=== PATIENT | female | born 1980 | race Caucasian/White ===

== ENCOUNTER 2022-10-05 00:02 | Emergency (ER) | payer BC, SELFPAY ==
[2022-10-05 00:07] VITALS: BP 134/97; PULSE 85; RESP 18; TEMP 36.7; O2SAT 97; BMI 42.3
--- NOTE | 2022-10-05 00:25 | ED_ITS ---
HPI - Allergic Reaction General Chief complaint: Allergic Reaction Stated complaint: HIVES Time Seen by Provider: 10/05/22 00:23 Source: patient Mode of arrival: walk-in Limitations: no limitations History of Present Illness HPI narrative: developed hives and swelling of her lips around 6pm. took baby benadryl. Not short of breath and no cough. Throat feels scratch. No associated nausea or vomiting. recent CVA that resolved. She is on Plavix and Lipitor Related Data Home Medications Medication Instructions Recorded Confirmed atorvastatin 40 mg tablet 40 mg PO DAILY 10/05/22 10/05/22 buspirone 10 mg tablet 10 mg PO TID 10/05/22 10/05/22 clopidogrel 75 mg tablet 75 mg PO DAILY 10/05/22 10/05/22 escitalopram oxalate 10 mg tablet 10 mg PO DAILY 10/05/22 10/05/22 Allergies Allergy/AdvReac Type Severity Reaction Status Date / Time Sulfa (Sulfonamide Allergy Unknown Verified 10/05/22 00:12 Antibiotics) topiramate [From Topamax] Allergy Unknown Verified 10/05/22 00:12 Review of Systems ROS Status of ROS 10 or more systems reviewed and unremarkable except as noted in history and below [facility] Medical History (Updated 10/05/22 @ 02:09 by Jareth Fu MD) Social History Smoking status: Former smoker Exam Constitutional Vital Signs - 24 hr 10/05/22 00:07 Temperature 98.1 F Pulse Rate [Monitor] 85 Respiratory Rate 18 Blood Pressure [Right Arm] 134/97 H Pulse Oximetry 97 Oxygen Delivery Method Room Air Common normals: no apparent distress and oriented x3 HENMT Common normals: normocephalic and head/scalp atraumatic Other: mild swelling right lip Eye Common normals: PERRL, EOMs intact bilaterally, conjunctivae normal and no scleral icterus Respiratory Common normals: normal respiratory effort, no retractions, no use of accessory muscles and clear to auscultation bilaterally Cardio Common normals: regular rate, regular rhythm, S1 normal heart sound and S2 normal heart sound GI Common normals: Normal to inspection, nondistended, normoactive bowel sounds present, soft to palpation and non-tender Extremity Common normals: normal to inspection, full ROM and normal capillary refill Neuro Common normals: oriented x3 and CN's II-XII intact bilaterally Psych Appearance: grossly normal Course Vital Signs Vital signs: Vital Signs Temperature 98.1 F 10/05/22 00:07 Pulse Rate 85 10/05/22 00:07 Respiratory Rate 18 10/05/22 00:07 Blood Pressure 134/97 H 10/05/22 00:07 Pulse Oximetry 97 10/05/22 00:07 Oxygen Delivery Method Room Air 10/05/22 00:07 Temperature 98.1 F 10/05/22 00:07 Pulse Rate 85 10/05/22 00:07 Respiratory Rate 18 10/05/22 00:07 Blood Pressure 134/97 H 10/05/22 00:07 Pulse Oximetry 97 10/05/22 00:07 Oxygen Delivery Method Room Air 10/05/22 00:07 MDM - Allergic Reaction MDM Narrative Medical decision making narrative: patient presents after allergic reaction with hives and swelling right side of her lip. scratchy throat but throat not swollen. Treated with benadryl, pepcid and solumedrol. By time of discharge lip swelling had significantly improved and nearly resolved and rash had cleared.Discharged home with a prescription for prednisone and is to follow up with her family doctor Discharge Plan Discharge Chief Complaint: Allergic Reaction Clinical Impression: Urticaria, Allergic reaction Condition: Good Prescriptions / Home Meds: No Action atorvastatin 40 mg tablet 40 mg PO DAILY clopidogrel 75 mg tablet 75 mg PO DAILY buspirone 10 mg tablet 10 mg PO TID escitalopram oxalate 10 mg tablet 10 mg PO DAILY Instructions: Urticaria (ED) Additional Instructions: follow up with the family doctor in 2-3 days for recheck. use benadryl 50mg 2-3 times a day for 3 days Stand Alone Forms: Portal Instructions Referrals: MIKIE CARBAJAL [Primary Care Provider] - 1 week
[2022-10-05 00:34] LABS: Basophils Percent Auto 0.2 % (0.2-2.0); Eosinophils Absolute Auto 0.1 10^3/uL (0.0-0.7); Eosinophils Percent Auto 1.3 % (0.9-7.0); Hematocrit 41.5 % (36.0-48.0); Immature Granulocytes Abs Auto 0.02 10^3/uL (0.00-0.03); Immature Granulocytes Pct Auto 0.2 % (0.0-0.5); Lymphocytes Absolute Auto 2.6 10^3/uL (1.2-3.8); Lymphocytes Percent Auto 26.5 % (20.5-60.0); Mean Corpuscular HGB Conc 33.7 g/dL (29.9-35.2); Mean Corpuscular Hemoglobin 31.3 pg (26.7-34.0); Mean Corpuscular Volume 92.6 fL (81.0-99.0); Mean Platelet Volume 9.9 fL (9.5-13.5); Monocytes Absolute Auto 0.5 10^3/uL (0.3-0.8); Neutrophils Absolute Auto 6.5 10^3/uL (1.4-6.5); Neutrophils Percent Auto 66.8 % (43.0-75.0); Platelet Count 233 10^3/uL (150-450); Red Blood Count 4.48 10^6/uL (4.20-5.40); Red Cell Distribution Width 12.9 % (11.0-15.0); White Blood Count 9.7 10^3/uL (4.0-11.0)
[2022-10-05] MEDS: METHYLPREDNISOLONE SOD SUCC PF 125 MG/2 ML VIAL IVP (00:35)
[2022-10-05] MEDS: DIPHENHYDRAMINE HCL 50 MG/ML (1ML) VIAL IV (00:35)
[2022-10-05] MEDS: FAMOTIDINE/PF 20 MG/2 ML VIAL IV (00:36)
[2022-10-05 00:41] VITALS: BP 119/73; O2SAT 97; O2SAT 99
[2022-10-05 00:49] LABS: Anion Gap 11.9; Calcium 8.8 mg/dL (8.5-10.1); Carbon Dioxide 26.9 mmol/L (21.0-32.0); Chloride 103 mmol/L (98-107); Estimated GFR (African America >60 (>=60); Estimated GFR (Non-African Ame >60 (>=60); Glucose 110 mg/dL (74-106); Potassium 3.8 mmol/L (3.5-5.1); Sodium 138 mmol/L (136-145)
[2022-10-05 01:00] VITALS: BP 112/67; O2SAT 96
[2022-10-05 01:30] VITALS: BP 120/74; O2SAT 97
== END 2022-10-05 02:19 | disposition home or self-care (01) ==
PROVIDERS: Emergency Provider Internal Medicine; PCP Family Medicine
DX: L50.0 Allergic urticaria (principal); Z86.73 Personal history of transient ischemic attack (TIA), and cerebral infarction without residual deficits; Z79.899 Other long term (current) drug therapy; Z87.891 Personal history of nicotine dependence
CPT/HCPCS: 36415; 80048; 85025; 96374; 96375; 99284; J2930

== ENCOUNTER 2022-10-06 19:08 | Emergency (ER) | payer BC, SELFPAY ==
[2022-10-06] VITALS (7 sets, daily range): BP systolic 114–135; BP diastolic 64–91; PULSE 73–95; RESP 15–25; TEMP 36.8; O2SAT 94–98; BMI 42.3
--- NOTE | 2022-10-06 19:48 | ED_ITS ---
HPI - General Adult General Chief complaint: Allergic Reaction Stated complaint: RASH, UPPER EXTREMITY EDEMA Time Seen by Provider: 10/06/22 19:37 Source: patient Mode of arrival: walk-in History of Present Illness HPI narrative: patient was evaluated in our ED 2 nights ago after she developed lip swelling and an itchy raised red rash. She got better in the ED after receiving IV Solumedrol, Benadryl and Pepcid. She was discharged home with prescription for prednisone and recommendation to continue benadryl as needed. She stopped her aspirin and also stopped her statin. She continued to take her Plavix. yesterday evening the rash worsened and despite taking the prednisone and benadryl at home the rash continued to worsen - involving her torso, extremities and neck. No wheezing or shortness of breath but she now has some itchiness to the throat. She last took benadryl around 2pm. 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 She was taking the plavix because of a CVA recently diagnosed. This is her last dose and then she is supposed to see the neurologist tomorrow to discuss whether or not she has to continue it. Related Data Home Medications Medication Instructions Recorded Confirmed atorvastatin 40 mg tablet 40 mg PO DAILY 10/05/22 10/05/22 buspirone 10 mg tablet 10 mg PO TID 10/05/22 10/05/22 clopidogrel 75 mg tablet 75 mg PO DAILY 10/05/22 10/05/22 escitalopram oxalate 10 mg tablet 10 mg PO DAILY 10/05/22 10/05/22 Allergies Allergy/AdvReac Type Severity Reaction Status Date / Time Sulfa (Sulfonamide Allergy Unknown Verified 10/06/22 19:21 Antibiotics) topiramate [From Topamax] Allergy Unknown Verified 10/06/22 19:21 [facility] Medical History (Updated 10/06/22 @ 21:45 by Trevor Birmingham) Surgical History (Updated 10/06/22 @ 19:24 by Monserrat Richards) Social History Smoking status: Former smoker Exam Narrative Exam Narrative: Nurses notes and vital signs reviewed and patient is not hypoxic. afebrile General: Well-appearing and in no apparent distress. Skin: Warm, dry, no pallor noted. urticarial rash in patches that involve the right torso, left upper extremity, left neck as well as patches elsewhere. Head: Normocephalic, atraumatic. Neck: Supple, non-tender. Eye: Pupils are equal, round and EOMI. No scleral icterus. Ears, Nose, Mouth, and Throat: Oral mucosa is moist, no posterior oropharynx erythema her swelling, uvula is mid-line Cardiovascular: Regular Rate and Rhythm without murmur, gallop or rub. Respiratory: No accessory muscle use or respiratory distress. Lungs are clear to auscultation, no wheezing, rales or rhonchi Musculoskeletal: normal ROM Neurological: A&O x4. No cranial nerve dysfunction observed. No truncal ataxia. Moves all extremities. Sensation intact. Psychiatric: Cooperative and interactive. Normal mood and affect. Constitutional Vital Signs - 24 hr 10/06/22 19:15 10/06/22 19:53 10/06/22 20:00 Temperature 98.2 F Pulse Rate 73 89 Pulse Rate [Monitor] 77 Respiratory Rate 16 15 25 H Blood Pressure Blood Pressure [Right Arm] 114/76 Pulse Oximetry 96 97 96 Oxygen Delivery Method Room Air 10/06/22 20:08 10/06/22 20:09 10/06/22 20:09 Temperature Pulse Rate 81 95 H 83 Pulse Rate [Monitor] Respiratory Rate 20 15 23 Blood Pressure 135/91 H 135/91 H Blood Pressure [Right Arm] Pulse Oximetry 97 98 95 Oxygen Delivery Method 10/06/22 20:09 10/06/22 21:00 Temperature Pulse Rate 79 80 Pulse Rate [Monitor] Respiratory Rate 23 23 Blood Pressure 135/91 H 122/64 H Blood Pressure [Right Arm] Pulse Oximetry 94 L 95 Oxygen Delivery Method Course Vital Signs Vital signs: Vital Signs Temperature 98.2 F 10/06/22 19:15 Pulse Rate 77 10/06/22 19:15 Respiratory Rate 16 10/06/22 19:15 Blood Pressure 114/76 10/06/22 19:15 Pulse Oximetry 96 10/06/22 19:15 Oxygen Delivery Method Room Air 10/06/22 19:15 Temperature 98.2 F 10/06/22 19:15 Pulse Rate 80 10/06/22 21:00 Respiratory Rate 23 10/06/22 21:00 Blood Pressure 122/64 H 10/06/22 21:00 Pulse Oximetry 95 10/06/22 21:00 Oxygen Delivery Method Room Air 10/06/22 19:15 Medical Decision Making MDM Narrative Medical decision making narrative: patient presented with allergic type reactions of scratchy throat and skin rash. She was placed on air sampling and monitoring and given sq epinephrine plus IV solumedrol, benadryl and pepcid. She was monitored more than 2 horus in the ED and had almost complete resolution of her symptoms. She was discharged home with recommendation to continue tot enedina the prednisone and benadryl as prescribed. She has an apointment with her neurologist in the morning and can discuss discontinuation of plavix and other meds to see if they might be the offending agents. Critical Care Time Critical Care Time Critical Care Time: Yes Total Critical Care Time: 35 Attestation: critical care time for evaluation, cardiac monitoring, administration of epinephrine and other meds and re-assessment. Discharge Plan Discharge Chief Complaint: Allergic Reaction Clinical Impression: Urticaria, Allergic reaction Time of Disposition Decision: 21:44 Prescriptions / Home Meds: No Action atorvastatin 40 mg tablet 40 mg PO DAILY clopidogrel 75 mg tablet 75 mg PO DAILY buspirone 10 mg tablet 10 mg PO TID escitalopram oxalate 10 mg tablet 10 mg PO DAILY Instructions: Urticaria (ED), General Allergic Reaction (ED) Stand Alone Forms: Portal Instructions Referrals: MIKIE CARBAJAL [Primary Care Provider] - 1 week
[2022-10-06] MEDS: DIPHENHYDRAMINE HCL 50 MG/ML (1ML) VIAL 25 MG IV (20:03)
[2022-10-06] MEDS: METHYLPREDNISOLONE SOD SUCC PF 125 MG/2 ML VIAL IVP (20:04)
[2022-10-06] MEDS: FAMOTIDINE/PF 20 MG/2 ML VIAL IV (20:04)
[2022-10-06] MEDS: EPINEPHrine 1 MG/10 ML SYRINGE 0.3 MG IM (20:06)
== END 2022-10-06 22:05 | disposition home or self-care (01) ==
PROVIDERS: Emergency Provider Emergency Medicine; PCP Family Medicine
DX: L50.0 Allergic urticaria (principal); Z79.899 Other long term (current) drug therapy; Z87.891 Personal history of nicotine dependence
CPT/HCPCS: 96372; 96374; 96375; 99285; J2930

== ENCOUNTER 2022-10-13 10:56 | Outpatient (OUT) | payer BC, SELFPAY ==
[2022-10-13 11:32] LABS: Basophils Percent Auto 0.4 % (0.2-2.0); Eosinophils Absolute Auto 0.1 10^3/uL (0.0-0.7); Eosinophils Percent Auto 1.2 % (0.9-7.0); Hematocrit 39.8 % (36.0-48.0); Hemoglobin 13.5 g/dL (12.0-16.0); Immature Granulocytes Abs Auto 0.08 10^3/uL (0.00-0.03); Immature Granulocytes Pct Auto 0.7 % (0.0-0.5); Lymphocytes Absolute Auto 2.7 10^3/uL (1.2-3.8); Lymphocytes Percent Auto 24.1 % (20.5-60.0); Mean Corpuscular HGB Conc 33.9 g/dL (29.9-35.2); Mean Corpuscular Hemoglobin 31.2 pg (26.7-34.0); Mean Corpuscular Volume 91.9 fL (81.0-99.0); Mean Platelet Volume 9.7 fL (9.5-13.5); Monocytes Absolute Auto 0.5 10^3/uL (0.3-0.8); Monocytes Percent Auto 4.9 % (1.7-12.0); Neutrophils Absolute Auto 7.6 10^3/uL (1.4-6.5); Neutrophils Percent Auto 68.7 % (43.0-75.0); Platelet Count 220 10^3/uL (150-450); Red Blood Count 4.33 10^6/uL (4.20-5.40); Red Cell Distribution Width 13.2 % (11.0-15.0); White Blood Count 11.1 10^3/uL (4.0-11.0)
[2022-10-13 12:20] LABS: Alanine Aminotransferase 41 U/L (14-59); Albumin Level 3.3 g/dL (3.4-5.0); Alkaline Phosphatase 102 U/L (46-116); Anion Gap 12.3; Aspartate Amino Transferase 13 U/L (15-37); BUN Creatinine Ratio 13.6; Bilirubin Total 0.3 mg/dL (0.2-1.0); Calcium 8.4 mg/dL (8.5-10.1); Carbon Dioxide 25.5 mmol/L (21.0-32.0); Chloride 103 mmol/L (98-107); Estimated GFR (African America >60 (>=60); Estimated GFR (Non-African Ame >60 (>=60); Globulin 3.2 g/dL; Glucose 168 mg/dL (74-106); Potassium 3.8 mmol/L (3.5-5.1); Sodium 137 mmol/L (136-145); Thyroid Stimulating Hormone 1.363 uIU/mL (0.358-3.740); Total Protein 6.5 g/dL (6.4-8.2)
[2022-10-14 10:19] LABS: Bilirubin Urine NEGATIVE (NEGATIVE); Blood Urine NEGATIVE (NEGATIVE); Clarity Urine CLEAR (CLEAR); Color Urine LT. YELLOW (YELLOW); Glucose Urine UA NEGATIVE (NEGATIVE); Ketones Urine NEGATIVE (NEGATIVE); Leukocyte Esterase Urine NEGATIVE (NEGATIVE); Nitrite Urine NEGATIVE (NEGATIVE); Protein Urine NEGATIVE (NEG/TRACE); Specific Gravity Urine 1.025 (1.005-1.025); Urobilinogen Urine 0.2 EU/dL (0.2-1.0); pH Urine 5.5 (5.0-9.0)
== END 2022-10-13 10:57 ==
LOC: LAB 10:58
PROVIDERS: PCP Family Medicine; Visit Provider Psychiatry & Neurology Neurology
DX: R60.0 Localized edema (principal)
CPT/HCPCS: 36415; 80053; 81003; 83880; 84443; 85025

== ENCOUNTER 2022-11-17 20:52 | Outpatient (OUT) | payer BC, SELFPAY | END 2022-11-17 20:53 | disposition home or self-care (01) | LOC: SLEEP 20:53 | PROVIDERS: PCP Nurse Practitioner Adult Health; Visit Provider Nurse Practitioner Adult Health | DX: G47.33 Obstructive sleep apnea (adult) (pediatric) (principal); G47.11 Idiopathic hypersomnia with long sleep time | CPT/HCPCS: 95810 ==

== ENCOUNTER 2023-01-12 07:56 | Emergency (ER) | payer BC, SELFPAY ==
[2023-01-12] VITALS (17 sets, daily range): BP systolic 105–125; BP diastolic 60–73; PULSE 79–107; RESP 6–28; TEMP 36.7; O2SAT 95–99; BMI 40.4
--- NOTE | 2023-01-12 08:11 | ECG_ITS ---
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
--- NOTE | 2023-01-12 08:11 | XR_ITS ---
[address] [address] Patient Name: JOHNIE KAMARA MRN: [id number] date: 1980 Sex: F Assigned Patient Location: ER Current Patient Location: ED.MAIN Accession/Order Number: [id number] Exam Date: 01/12/2023 08:30 Report Date: 01/12/2023 08:40 At the request of: ARISTIDES GILBERT Procedure: XR chest 1V Exam: Radiographs: XR chest 1V Reason for exam: Chest pain Comparison: Chest x-ray dated 09/16/2022 XR/XR chest 1V IMPRESSION: Small amount of bibasilar atelectasis. No pneumothorax. Atrial septal occlusion device. Remainder of the chest is unremarkable. Electronically authenticated by: SUMMER LANTIGUA Date: 01/12/2023 08:40
--- NOTE | 2023-01-12 08:12 | ED_ITS ---
HPI - Chest Pain General Chief Complaint: Chest Pain Stated Complaint: SOB CHEST PAIN Time Seen by Provider: 01/12/23 07:58 Source: patient Mode of arrival: Wheelchair History of Present Illness HPI narrative: 42-year-old female presents to the emergency department for chest pain. It began about three or 4:00 this morning and feels like a pressure and it woke her up. It's in the middle part of her chest and doesn't seem to radiate. Two days ago she had PFO closure procedure performed at [facility] and she went home the same day. She had no symptoms yesterday. Her symptom is continuous. No back pain. Related Data Home Medications Medication Instructions Recorded Confirmed atorvastatin 40 mg tablet 40 mg PO DAILY 10/05/22 01/12/23 buspirone 10 mg tablet 10 mg PO TID 10/05/22 01/12/23 clopidogrel 75 mg tablet 75 mg PO DAILY 10/05/22 01/12/23 escitalopram oxalate 10 mg tablet 10 mg PO DAILY 10/05/22 01/12/23 aspirin 81 mg tablet,delayed 81 mg PO DAILY 01/12/23 01/12/23 release Allergies Allergy/AdvReac Type Severity Reaction Status Date / Time protamine Allergy Intermediate Hives Verified 01/12/23 08:05 Sulfa (Sulfonamide Allergy Unknown Verified 10/06/22 19:21 Antibiotics) topiramate [From Topamax] Allergy Unknown Verified 10/06/22 19:21 Review of Systems ROS Narrative A ten point review of systems is negative except as noted above. [facility] Medical History (Updated 01/12/23 @ 11:42 by Phani Parks MD) Surgical History (Updated 10/06/22 @ 19:24 by Monserrat Richards) Social History Smoking status: Former smoker Exam Narrative Exam Narrative: Nurses note and vital signs reviewed and patient is not hypoxic. General: The patient appears well and in no apparent distress. Patient is resting comfortably on cart. Skin: Warm, dry, no pallor noted. There is no rash noted. Head: Normocephalic, atraumatic Eye: Normal conjunctiva, no drainage Ears, Nose, Mouth, and Throat: oral mucosa is moist. Nares patent. Cardiovascular: Regular Rate and Rhythm Respiratory: Patient is in no distress, no accessory muscle use, lungs are clear to auscultation, no wheezing, rales or rhonchi Back: non-tender GI: soft and nontender Musculoskeletal: The patient has no evidence of calf tenderness, no pitting edema, symmetrical pulses noted bilaterally Neurological: A&O, normal speech Psychiatric: Cooperative Constitutional Vital Signs, click to edit/add: Last Vital Signs Temp 98.1 F 01/12/23 07:58 Pulse 88 01/12/23 10:10 Resp 7 L 01/12/23 10:10 BP 105/60 01/12/23 09:31 Pulse Ox 96 01/12/23 10:10 O2 Del Method Room Air 01/12/23 07:58 Course Vital Signs Vital signs: Vital Signs Temperature 98.1 F 01/12/23 07:58 Pulse Rate 107 H 01/12/23 07:58 Respiratory Rate 20 01/12/23 07:58 Blood Pressure 125/71 01/12/23 07:58 Pulse Oximetry 98 01/12/23 07:58 Oxygen Delivery Method Room Air 01/12/23 07:58 Temperature 98.1 F 01/12/23 07:58 Pulse Rate 88 01/12/23 10:10 Respiratory Rate 7 L 01/12/23 10:10 Blood Pressure 105/60 01/12/23 09:31 Pulse Oximetry 96 01/12/23 10:10 Oxygen Delivery Method Room Air 01/12/23 07:58 MDM - Chest Pain MDM Narrative Medical decision making narrative: two sets of troponin are negative. CTA is negative as well, no evidence of pneumothorax or pulmonary embolism or pericardial effusion. 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 I do not suspect pericarditis and there is no evidence of myocardial infarction. Findings are discussed thoroughly with the patient and her . She was given a gastrointestinal cocktail and feels improved. Treatment diagnosis and follow-up were discussed with the patient Differential Diagnosis Differential diagnosis: Likely pneumothorax, unstable angina pectoris, atypical chest pain, st elevation myocardial infarction, costochondritis, chest pain and other (pericarditis, pericardial effusion) Lab Data Attestation: I reviewed the patient's lab results. Labs: Lab Results 01/12/23 01/12/23 Range/Units 08:15 10:52 WBC 10.1 (4.0-11.0) 10^3/uL RBC 4.38 (4.20-5.40) 10^6/uL Hgb 13.9 (12.0-16.0) g/dL Hct 40.5 (36.0-48.0) % MCV 92.5 (81.0-99.0) fL MCH 31.7 (26.7-34.0) pg MCHC 34.3 (29.9-35.2) g/dL RDW 12.7 (11.0-15.0) % Plt Count 176 (150-450) 10^3/uL MPV 10.3 (9.5-13.5) fL Neut % (Auto) 70.5 (43.0-75.0) % Lymph % (Auto) 20.8 (20.5-60.0) % [place] % (Auto) 6.9 (1.7-12.0) % Eos % (Auto) 1.2 (0.9-7.0) % Baso % (Auto) 0.3 (0.2-2.0) % Neut # (Auto) 7.1 H (1.4-6.5) 10^3/uL Lymph # (Auto) 2.1 (1.2-3.8) 10^3/uL Marion # (Auto) 0.7 (0.3-0.8) 10^3/uL Eos # (Auto) 0.1 (0.0-0.7) 10^3/uL Baso # (Auto) 0.0 (0.0-0.1) 10^3/uL Abs Immat Gran (auto) 0.03 (0.00-0.03) 10^3/uL Imm/Tot Granulo (auto) 0.3 (0.0-0.5) % Sodium 134 L (136-145) mmol/L Potassium 3.7 (3.5-5.1) mmol/L Chloride 103 (98-107) mmol/L Carbon Dioxide 21.4 (21.0-32.0) mmol/L Anion Gap 13.3 BUN 7.0 (7.0-18.0) mg/dL Creatinine 0.79 (0.55-1.02) mg/dL Est GFR ( Amer) >60 (>=60) Est GFR (Non-Af Amer) >60 (>=60) BUN/Creatinine Ratio 8.9 Glucose 117 H (74-106) mg/dL Calcium 9.0 (8.5-10.1) mg/dL Troponin I High Sens 13.8 11.4 (4.0-51.3) pg/mL Imaging Data x-ray, CTA chest: Radiologist's impression: Procedure: CT angio chest EXAM: CT angio chest HISTORY: chest pain, recent PFO closure procedure COMPARISON: Chest CT from 06/29/2022. TECHNIQUE: CT angio chest FINDINGS: VASCULATURE: CORONARY ARTERIES: There are no atherosclerotic calcifications of the [place] coronary arteries. PULMONARY ARTERIES: No central pulmonary embolus. Normal size. ASCENDING THORACIC AORTA: No significant abnormality. AORTIC ARCH: No significant abnormality. ARCH VESSELS: No significant abnormality. DESCENDING THORACIC AORTA: No significant abnormality. UPPER ABDOMINAL AORTA: No significant abnormality. LOWER NECK: Normal. CHEST: LUNGS / AIRWAYS / PLEURA: Streaky bibasilar atelectasis. HEART / OTHER VESSELS: Changes from prior PFO closure. MEDIASTINUM / ESOPHAGUS: Normal. LYMPH NODES: None pathologically enlarged. Solitary partially calcified right hilar lymph node. CHEST WALL: No significant abnormality. UPPER ABDOMEN: Normal. MUSCULOSKELETAL: No significant abnormality. IMPRESSION: Changes from prior PFO closure without an acute abnormality of the chest. Electronically authenticated by: JEREMIAH TURCIOS Date: 01/12/2023 09:43 Procedure: XR chest 1V Exam: Radiographs: XR chest 1V Reason for exam: Chest pain Comparison: Chest x-ray dated 09/16/2022 IMPRESSION: Small amount of bibasilar atelectasis. No pneumothorax. Atrial septal occlusion device. Remainder of the chest is unremarkable. Electronically authenticated by: SUMMER LANTIGUA Date: 01/12/2023 08:40 ECG Data Attestation: I personally reviewed and interpreted this ECG as follows: (EKG on my interpretation shows normal sinus rhythm without acute change and a rate of 92.) Heart Score History: Slightly/Non-Suspicious ECG: Normal Age: <45 years Risk Factors: No Risk Factors Troponin: <Normal Limit Total Heart Score Recommendations & Risks:: 0 Discharge Plan Discharge Chief Complaint: Chest Pain Clinical Impression: Chest pain Patient Disposition: Home, Self-Care Time of Disposition Decision: 11:42 Condition: Good Mode of Transportation: Private Vehicle Prescriptions / Home Meds: No Action atorvastatin 40 mg tablet 40 mg PO DAILY clopidogrel 75 mg tablet 75 mg PO DAILY buspirone 10 mg tablet 10 mg PO TID escitalopram oxalate 10 mg tablet 10 mg PO DAILY aspirin 81 mg tablet,delayed release (DR/EC) 81 mg PO DAILY Instructions: Chest Pain (ED) Stand Alone Forms: Portal Instructions Referrals: JESÚS VEGA [Primary Care Provider] - 1 week
[2023-01-12 08:27] LABS: Basophils Percent Auto 0.3 % (0.2-2.0); Eosinophils Absolute Auto 0.1 10^3/uL (0.0-0.7); Eosinophils Percent Auto 1.2 % (0.9-7.0); Hematocrit 40.5 % (36.0-48.0); Hemoglobin 13.9 g/dL (12.0-16.0); Immature Granulocytes Abs Auto 0.03 10^3/uL (0.00-0.03); Immature Granulocytes Pct Auto 0.3 % (0.0-0.5); Lymphocytes Absolute Auto 2.1 10^3/uL (1.2-3.8); Lymphocytes Percent Auto 20.8 % (20.5-60.0); Mean Corpuscular HGB Conc 34.3 g/dL (29.9-35.2); Mean Corpuscular Hemoglobin 31.7 pg (26.7-34.0); Mean Corpuscular Volume 92.5 fL (81.0-99.0); Mean Platelet Volume 10.3 fL (9.5-13.5); Monocytes Absolute Auto 0.7 10^3/uL (0.3-0.8); Monocytes Percent Auto 6.9 % (1.7-12.0); Neutrophils Absolute Auto 7.1 10^3/uL (1.4-6.5); Neutrophils Percent Auto 70.5 % (43.0-75.0); Platelet Count 176 10^3/uL (150-450); Red Blood Count 4.38 10^6/uL (4.20-5.40); Red Cell Distribution Width 12.7 % (11.0-15.0); White Blood Count 10.1 10^3/uL (4.0-11.0)
[2023-01-12 08:42] LABS: Anion Gap 13.3; BUN Creatinine Ratio 8.9; Carbon Dioxide 21.4 mmol/L (21.0-32.0); Chloride 103 mmol/L (98-107); Estimated GFR (African America >60 (>=60); Estimated GFR (Non-African Ame >60 (>=60); Glucose 117 mg/dL (74-106); Potassium 3.7 mmol/L (3.5-5.1); Sodium 134 mmol/L (136-145); Troponin I High Sensitivity 13.8 pg/mL (4.0-51.3)
--- NOTE | 2023-01-12 08:45 | CT_ITS ---
The [address] [address] Patient Name: JOHNIE KAMARA MRN: [id number] date: 1980 Sex: F Assigned Patient Location: ER Current Patient Location: ER Accession/Order Number: [id number] Exam Date: 01/12/2023 09:05 Report Date: 01/12/2023 09:43 At the request of: ARISTIDES GILBERT Procedure: CT angio chest EXAM: CT angio chest HISTORY: chest pain, recent PFO closure procedure COMPARISON: Chest CT from 06/29/2022. TECHNIQUE: CT angio chest FINDINGS: VASCULATURE: CORONARY ARTERIES: There are no atherosclerotic calcifications of the [place] coronary arteries. PULMONARY ARTERIES: No central pulmonary embolus. Normal size. ASCENDING THORACIC AORTA: No significant abnormality. AORTIC ARCH: No significant abnormality. ARCH VESSELS: No significant abnormality. DESCENDING THORACIC AORTA: No significant abnormality. UPPER ABDOMINAL AORTA: No significant abnormality. LOWER NECK: Normal. CHEST: LUNGS / AIRWAYS / PLEURA: Streaky bibasilar atelectasis. HEART / OTHER VESSELS: Changes from prior PFO closure. MEDIASTINUM / ESOPHAGUS: Normal. LYMPH NODES: None pathologically enlarged. Solitary partially calcified right hilar lymph node. CHEST WALL: No significant abnormality. UPPER ABDOMEN: Normal. MUSCULOSKELETAL: No significant abnormality. CT/CT angio chest IMPRESSION: Changes from prior PFO closure without an acute abnormality of the chest. Electronically authenticated by: JEREMIAH TURCIOS Date: 01/12/2023 09:43
[2023-01-12] MEDS: lidocaine HCL 15 ML, MAG HYDROX/ALUMINUM HYD/SIMETH 30 ML, HYOSCYAMINE SULFATE 0.25 MG PO (10:58)
[2023-01-12 11:32] LABS: Troponin I High Sensitivity 11.4 pg/mL (4.0-51.3)
== END 2023-01-12 11:53 | disposition home or self-care (01) ==
PROVIDERS: Emergency Provider Emergency Medicine; PCP Nurse Practitioner Adult Health
DX: R07.9 Chest pain, unspecified (principal); Z79.82 Long term (current) use of aspirin; Z79.899 Other long term (current) drug therapy; Z87.891 Personal history of nicotine dependence
CPT/HCPCS: 36415; 71045; 71275; 80048; 84484; 85025; 93005; 99285; Q9967

== ENCOUNTER 2023-06-12 21:47 | Emergency (ER) | payer BC, SELFPAY ==
[2023-06-12] VITALS (16 sets, daily range): BP systolic 122–153; BP diastolic 79–94; PULSE 75–88; RESP 4–24; TEMP 36.9; O2SAT 92–98; BMI 43.6
--- NOTE | 2023-06-12 22:09 | ED_ITS ---
HPI - Weakness General Chief complaint: Weakness Stated complaint: cva Time Seen by Provider: 06/12/23 22:05 Source: patient Mode of arrival: Wheelchair History of Present Illness HPI Narrative: patient s/p CVA August 2022. Was found to have PFO that was repaired at [facility] 12/2022. History of migraine headache. States around 9:30pm tonight her right arm felt heavy. Just before coming in she developed a headache and right arm and leg feel heavy but she still has full use of them. States with her headaches she usually has blurred vision. Her vision is normal. She is nauseated. No chest pain or palpitations Related Data Home Medications Medication Instructions Recorded Confirmed atorvastatin 40 mg tablet 40 mg PO DAILY 10/05/22 01/12/23 buspirone 10 mg tablet 10 mg PO TID 10/05/22 01/12/23 clopidogrel 75 mg tablet 75 mg PO DAILY 10/05/22 01/12/23 escitalopram oxalate 10 mg tablet 10 mg PO DAILY 10/05/22 01/12/23 aspirin 81 mg tablet,delayed 81 mg PO DAILY 01/12/23 01/12/23 release Allergies Allergy/AdvReac Type Severity Reaction Status Date / Time protamine Allergy Intermediate Hives Verified 01/12/23 08:05 aspirin Allergy Mild Hives Verified 06/12/23 22:53 Sulfa (Sulfonamide Allergy Unknown Verified 10/06/22 19:21 Antibiotics) topiramate [From Topamax] Allergy Unknown Verified 10/06/22 19:21 Review of Systems ROS Status of ROS 10 or more systems reviewed and unremark able except as noted in history and below [facility] Medical History (Updated 06/13/23 @ 00:14 by Jareth uF MD) Stroke ?I63.9 - Cerebral infarction, unspecified (ICD-10) Surgical History (Updated 10/06/22 @ 19:24 by Monserrat Richards) History of cholecystectomy ?Z90.49 - Acquired absence of other specified parts of digestive tract (ICD- 10) History of hysterectomy ?Z90.710 - Acquired absence of both cervix and uterus (ICD-10) Social History Smoking status: Former smoker Exam Constitutional Vital Signs, click to edit/add: Last Vital Signs Temp 98.4 F 06/12/23 21:52 Pulse 80 06/13/23 00:10 Resp 24 06/13/23 00:10 BP 102/70 06/13/23 00:00 Pulse Ox 93 L 06/13/23 00:10 O2 Del Method Room Air 06/12/23 21:52 Common normals: no apparent distress, average body habitus, oriented x3, no limitations, healthy appearing, alert and well nourished [facility] Common normals: normocephalic and head/scalp atraumatic Eye Common normals: EOMs intact bilaterally and conjunctivae normal Chest Common normals: inspection of chest normal and palpation of chest normal Respiratory Common normals: normal respiratory effort, no retractions, no use of accessory muscles and clear to auscultation bilaterally Cardio Common normals: regular rate, regular rhythm, S1 normal heart sound and S2 normal heart sound GI Common normals: Normal to inspection, nondistended, normoactive bowel sounds present, soft to palpation and non-tender Extremity Common normals: normal to inspection and full ROM Neuro Common normals: oriented x3, CN's II-XII intact bilaterally, moves all extremities and no focal motor deficits Psych Appearance: grossly normal Course Vital Signs Vital signs: Vital Signs Temperature 98.4 F 06/12/23 21:52 Pulse Rate 86 06/12/23 21:52 Respiratory Rate 16 06/12/23 21:52 Blood Pressure 153/94 H 06/12/23 21:52 Pulse Oximetry 96 06/12/23 21:52 Oxygen Delivery Method Room Air 06/12/23 21:52 Temperature 98.4 F 06/12/23 21:52 Pulse Rate 80 06/13/23 00:10 Respiratory Rate 06/13/23 00:10 Blood Pressure 102/70 06/13/23 00:00 Pulse Oximetry 93 L 06/13/23 00:10 Oxygen Delivery Method Room Air 06/12/23 21:52 MDM - Weakness MDM Narrative Medical decision making narrative: patient S/P CVA one year ago and found to have PFO that was repaired in 12/2022. Patient is on plavix. Has past history of migraines associated with blurred vision. Tonight developed numbness and heaviness of the right arm and numbness of the right leg. right arm felt heavy but was not weak. She then developed a headache and this combination frighten her and she came in. No palpitations or chest pain. CT brain neg. migraine treated successfully with reglan, benadryl and solumedrol and her paresthesia of her arm and leg also resolved. Discussed with stroke neurologist Dr Almeida and he felt her neuro symptoms were related to her migraine. Patient is asymptomatic and discharged home. Lab Data Labs: Lab Results 06/12/23 Range/Units 21:55 WBC 16.3 H (4.0-11.0) 10^3/uL RBC 4.70 (4.20-5.40) 10^6/uL Hgb 14.6 (12.0-16.0) g/dL Hct 43.9 (36.0-48.0) % MCV 93.4 (81.0-99.0) fL MCH 31.1 (26.7-34.0) pg MCHC 33.3 (29.9-35.2) g/dL RDW 13.2 (11.0-15.0) % Plt Count 254 (150-450) 10^3/uL MPV 10.2 (9.5-13.5) fL Neut % (Auto) 51.8 (43.0-75.0) % Lymph % (Auto) 41.3 (20.5-60.0) % [place] % (Auto) 5.3 (1.7-12.0) % Eos % (Auto) 0.8 L (0.9-7.0) % Baso % (Auto) 0.2 (0.2-2.0) % Neut # (Auto) 8.4 H (1.4-6.5) 10^3/uL Lymph # (Auto) 6.7 H (1.2-3.8) 10^3/uL [place] # (Auto) 0.9 H (0.3-0.8) 10^3/uL Eos # (Auto) 0.1 (0.0-0.7) 10^3/uL Baso # (Auto) 0.0 (0.0-0.1) 10^3/uL Abs Immat Gran (auto) 0.10 H (0.00-0.03) 10^3/uL Imm/Tot Granulo (auto) 0.6 H (0.0-0.5) % Sodium 140 (136-145) mmol/L Potassium 3.6 (3.5-5.1) mmol/L Chloride 103 (98-107) mmol/L Carbon Dioxide 27.5 (21.0-32.0) mmol/L Anion Gap 13.1 BUN 13.0 (7.0-18.0) mg/dL Creatinine 0.83 (0.55-1.02) mg/dL Est GFR ( Amer) >60 (>=60) Est GFR (Non-Af Amer) >60 (>=60) BUN/Creatinine Ratio 15.7 Glucose 115 H (74-106) mg/dL Calcium 8.8 (8.5-10.1) mg/dL Troponin I High Sens <4.0 L (4.0-51.3) pg/mL Discharge Plan Discharge Chief Complaint: Weakness Clinical Impression: Migraine Patient Disposition: Home, Self-Care Prescriptions / Home Meds: No Action atorvastatin 40 mg tablet 40 mg PO DAILY clopidogrel 75 mg tablet 75 mg PO DAILY buspirone 10 mg tablet 10 mg PO TID escitalopram oxalate 10 mg tablet 10 mg PO DAILY aspirin 81 mg tablet,delayed release (DR/EC) 81 mg PO DAILY Instructions: Migraine Headache (ED) Stand Alone Forms: Portal Instructions Referrals: JESÚS VEGA [Primary Care Provider] - 1 week Discharge Date/Time: 06/13/23 00:21
--- NOTE | 2023-06-12 22:13 | ECG_ITS ---
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
--- NOTE | 2023-06-12 22:13 | CT_ITS ---
The [address] [address] Patient Name: JOHNIE KAMARA MRN: [id number] date: 1980 Sex: F Assigned Patient Location: ER Current Patient Location: ER Accession/Order Number: [id number] Exam Date: 06/12/2023 22:20 Report Date: 06/12/2023 22:45 At the request of: VARUN GONCALVES Procedure: CT stroke head/brain wo con EXAMINATION: CT stroke head/brain wo con, 06/12/2023 10:20 PM EST HISTORY: right sided weakness COMPARISON: CT head 09/16/2022. TECHNIQUE: CT scan of the head was performed without IV contrast. CT dose reduction technique was used, including Automated Exposure Control. FINDINGS: BRAIN PARENCHYMA/CSF SPACES: Ventricles are normal in size for age. There is no hemorrhage, mass effect or midline shift. There are no other significant findings. PARANASAL SINUSES: Clear. SKULL BASE AND CALVARIUM: Normal. EXTRACRANIAL SOFT TISSUES: Normal. CT/CT stroke head/brain wo con IMPRESSION: Normal noncontrast head CT. Electronically authenticated by: OH GOTTLIEB Date: 06/12/2023 22:45
--- NOTE | 2023-06-12 22:13 | XR_ITS ---
The [place] [id number] Patient Name: JOHNIE KAMARA MRN: [id number] date: 1980 Sex: F Assigned Patient Location: ER Current Patient Location: ED.MAIN Accession/Order Number: [id number] Exam Date: 06/12/2023 22:35 Report Date: 06/12/2023 23:18 At the request of: VARUN GONCALVES Procedure: XR chest 1V EXAM: XR chest 1V HISTORY: right sided weakness COMPARISON: Chest x-ray 01/12/2023 TECHNIQUE: Single frontal view chest x-ray FINDINGS: No lung consolidation, large pleural effusion, pneumothorax, or acute bony abnormality. Cardiac size is unremarkable. Atrial septal occlusion device is seen. XR/XR chest 1V IMPRESSION: No radiographic evidence for acute chest abnormality. Electronically authenticated by: DAO SOOT Date: 06/12/2023 23:18
[2023-06-12 22:23] LABS: Basophils Percent Auto 0.2 % (0.2-2.0); Eosinophils Absolute Auto 0.1 10^3/uL (0.0-0.7); Eosinophils Percent Auto 0.8 % (0.9-7.0); Hematocrit 43.9 % (36.0-48.0); Hemoglobin 14.6 g/dL (12.0-16.0); Immature Granulocytes Pct Auto 0.6 % (0.0-0.5); Lymphocytes Absolute Auto 6.7 10^3/uL (1.2-3.8); Lymphocytes Percent Auto 41.3 % (20.5-60.0); Mean Corpuscular HGB Conc 33.3 g/dL (29.9-35.2); Mean Corpuscular Hemoglobin 31.1 pg (26.7-34.0); Mean Corpuscular Volume 93.4 fL (81.0-99.0); Mean Platelet Volume 10.2 fL (9.5-13.5); Monocytes Absolute Auto 0.9 10^3/uL (0.3-0.8); Monocytes Percent Auto 5.3 % (1.7-12.0); Neutrophils Absolute Auto 8.4 10^3/uL (1.4-6.5); Neutrophils Percent Auto 51.8 % (43.0-75.0); Platelet Count 254 10^3/uL (150-450); Red Cell Distribution Width 13.2 % (11.0-15.0); White Blood Count 16.3 10^3/uL (4.0-11.0)
[2023-06-12 22:41] LABS: Anion Gap 13.1; BUN Creatinine Ratio 15.7; Calcium 8.8 mg/dL (8.5-10.1); Carbon Dioxide 27.5 mmol/L (21.0-32.0); Chloride 103 mmol/L (98-107); Estimated GFR (African America >60 (>=60); Estimated GFR (Non-African Ame >60 (>=60); Glucose 115 mg/dL (74-106); Potassium 3.6 mmol/L (3.5-5.1); Sodium 140 mmol/L (136-145); Troponin I High Sensitivity <4.0 pg/mL (4.0-51.3)
[2023-06-12] MEDS: METHYLPREDNISOLONE SOD SUCC PF 125 MG/2 ML VIAL IVP (22:53)
[2023-06-12] MEDS: METOCLOPRAMIDE HCL 10 MG/2 ML VIAL IVP (22:53)
[2023-06-12] MEDS: DIPHENHYDRAMINE HCL 50 MG/ML (1ML) VIAL 25 MG IV (22:53)
[2023-06-13] VITALS: BP 102/70; PULSE 69; RESP 20; O2SAT 92
[2023-06-13 00:10] VITALS: PULSE 80; RESP 24; O2SAT 93
== END 2023-06-13 00:21 | disposition home or self-care (01) ==
PROVIDERS: Emergency Provider Internal Medicine; PCP Nurse Practitioner Adult Health
DX: G43.909 Migraine, unspecified, not intractable, without status migrainosus (principal); Z86.73 Personal history of transient ischemic attack (TIA), and cerebral infarction without residual deficits; Z79.899 Other long term (current) drug therapy; Z79.82 Long term (current) use of aspirin; Z90.49 Acquired absence of other specified parts of digestive tract; Z90.710 Acquired absence of both cervix and uterus; Z87.891 Personal history of nicotine dependence; Z79.02 Long term (current) use of antithrombotics/antiplatelets
CPT/HCPCS: 36415; 70450; 71045; 80048; 84484; 85025; 93005; 99285; J1200; J2765; J2930

== ENCOUNTER 2023-06-22 14:50 | Outpatient (OUT) | payer BC, SELFPAY ==
--- NOTE | 2023-06-22 14:53 | CT_ITS ---
The [address] [address] Patient Name: JOHNIE KAMARA MRN: [id number] date: 1980 Sex: F Assigned Patient Location: CT Current Patient Location: CT Accession/Order Number: [id number] Exam Date: 06/22/2023 15:00 Report Date: 06/22/2023 17:52 At the request of: JESÚS VEGA Procedure: CT head/brain wo con EXAM: CT head/brain wo con HISTORY: Right-sided weakness, cerebrovascular accident I63.433 COMPARISON: CT brain 06/12/2023. TECHNIQUE: Axial CT scans through the head were obtained without IV contrast administration. Dose reduction techniques were achieved by using: automated exposure control and/or adjustment of mA and /or kV according to patient size and/or use of iterative reconstruction technique. FINDINGS: There is no evidence of acute intracranial hemorrhage or abnormal extra-axial fluid collection. No mass effect or midline shift is seen. There is no evidence of large acute territorial infarction. There is no hydrocephalus. To the limit of CT, the posterior fossa appears unremarkable. No definite acute fracture is identified. Soft tissues are unremarkable. The visualized orbits show no abnormality. There is small air-fluid level with frothy secretions and minimal mucosal thickening of left sphenoid sinus, new since 06/12/2023. Mastoid air cells are clear. CT/CT head/brain wo con IMPRESSION: No CT evidence of acute intracranial abnormality. If there is sufficient clinical concern for acute brain parenchymal pathology, consider MRI for further evaluation. Incidental note of small air-fluid level with frothy secretions in the left sphenoid sinus, new since 06/12/2023, suggestive of acute sinusitis. Electronically authenticated by: YOCASTA AVILAU Date: 06/22/2023 17:52
== END 2023-06-22 14:51 | disposition home or self-care (01) ==
LOC: CT 14:50
PROVIDERS: PCP Nurse Practitioner Adult Health; Visit Provider Nurse Practitioner Adult Health
DX: I63.433 Cerebral infarction due to embolism of bilateral posterior cerebral arteries (principal)
CPT/HCPCS: 70450

== ENCOUNTER 2023-09-05 07:27 | Outpatient (OUT) | payer BC, SELFPAY ==
--- NOTE | 2023-09-05 07:29 | MM_ITS ---
Patient Name: JOHNIE KAMARA MR#: [id number] : 1980 Exam Date: 09/05/2023 Ordering Doctor: NGHIA SALAZAR . RADIOLOGY REPORT PROCEDURE: MM TOMOSYNTHESIS SCREENING BI COMPARISON: MG MAMM SCREEN 3D JOSE CAD, 07/01/2022. INDICATIONS: Screening Calculator Name NCI Breast Cancer Risk Assessment Tool 5 Year Breast Cancer Risk 0.50% Lifetime Breast Cancer Risk 9.00% Personal Breast Cancer No Personal Ovarian Cancer No Treatments None Family Cancers None LOCATION: [facility] BREAST COMPOSITION: The breasts are extremely dense, which lowers the sensitivity of mammography. FINDINGS: DIAGNOSTIC CATEGORY 1--NEGATIVE. NO CHANGE FROM COMPARISON ASSESSMENT. Scattered benign-appearing calcifications are present. Scattered benign-appearing lymph nodes are present. RIGHT BREAST: No significant suspicious finding. LEFT BREAST: No significant suspicious finding. RECOMMENDATIONS: ROUTINE MAMMOGRAM AND CLINICAL EVALUATION IN 12 MONTHS. PLEASE NOTE: A NORMAL MAMMOGRAM DOES NOT EXCLUDE THE POSSIBILITY OF BREAST CANCER. A CLINICALLY SUSPICIOUS PALPABLE LUMP SHOULD BE BIOPSIED. Dictated by: Stu Salgado MD on 09/05/2023 at 09:48 Approved by: Stu Salgado MD on 09/05/2023 at 09:50
== END 2023-09-05 07:28 | disposition home or self-care (01) ==
LOC: MAMMO 07:27
PROVIDERS: PCP Nurse Practitioner; Visit Provider Nurse Practitioner
DX: Z12.31 Encounter for screening mammogram for malignant neoplasm of breast (principal)
CPT/HCPCS: 77063; 77067

== ENCOUNTER 2024-04-12 22:44 | Emergency (ER) | payer BC, SELFPAY ==
[2024-04-12 22:47] VITALS: BP 121/82; PULSE 77; TEMP 37.1; O2SAT 100; BMI 43.6
--- OUTSIDE RECORDS SUMMARY | 2024-04-12 22:52 | XMS_ITS | CCD ---
Author Organization [facility] CliniSywv Care Team Providers Care Soapstoner Name Role Phone PHYSICIAN, DEFAULT Admitting Unavailable PHYSICIAN, DEFAULT Attending Unavailable Mary Al Unavailable Keri Urbina Unavailable RAVEN, DR DELUNA Primary Care Unavailable DIAB ., KAY Attending Unavailable DIAB ., KAY Admitting Unavailable MANPREET PRICE Consulting Unavailable DIAB ., KAY Consulting Unavailable RABIA MARTINEZ Consulting Unavailable ARISTIDES GILBERT Attending Unavailable VLADIMIR, ARISTIDES Burroughs Admitting Unavailable RAHEEM, DR MANPREET Raymundo Consulting Unavailable RAVEN, DR DELUNA Primary Care Unavailable MATY, DR CRAIG Merchant Consulting Unavailable KATARISTIDES RENEE Consulting Unavailable COATJASON Miranda Consulting Unavailable RAVEN, DR DELUNA Attending Unavailable WELLESLEY, DR DELUNA Consulting Unavailable WELLESLEY, DR DELUNA Primary Care Unavailable WELLESLEY, DR DELUNA Admitting Unavailable WELLESLEY, DR DELUNA Consulting Unavailable RAVEN, DR DELUNA Primary Care Unavailable RAVNE, DR DELUNA Admitting Unavailable WELLESLEY, DR DELUNA Attending Unavailable ZIEBER, DR CRAIG Merchant Consulting Unavailable UNRULY ., DR REYES Attending Unavailable UNRULY ., DR REYES Consulting Unavailable UNRULY ., DR REYES Admitting Unavailable RAVEN, DR DELUNA Primary Care Unavailable Silva Bryant Unavailable REGINA VILLEGAS Referring Unavailable NELLY REGINA E Primary Care Unavailable REGINA VILLEGAS Primary Care Unavailable Izzy Hernández Primary Care Physician [phone] CECILIA CRUM Referring Unavailable REGNIA VILLEGAS Primary Care Unavailable SUMMER ASH Attending Unavailable REGINA VILLEGAS Referring Unavailable REGINA VILLEGAS Primary Care Unavailable SUMMER ASH Attending Unavailable REGINA VILLEGAS Referring Unavailable REGINA VILLEGAS Primary Care Unavailable SUMMER ASH Attending Unavailable REGINA VILLEGAS Referring Unavailable REGINA VILLEGAS Primary Care Unavailable Regina Villegas MD Primary Care Provider [phone] Eitan FULLER, Craig Unavailable [phone] Feng MOLINA, Martha Unavailable Estee Monreal Unavailable Nelly FULLER, Regina Newberry Primary Care Provider WINDNAGEL, JESÚS C Attending Unavailable WINDNAGEL, JESÚS C Referring Unavailable CRAIG CORREA Attending Unavailable WINDNAGEL, JESÚS C Attending Unavailable KIERRA PIERCE Attending Unavailable WINDNAGEL, JESÚS C Attending Unavailable WINDNAGEL, JESÚS Attending Unavailable WINDNAGEL, JESÚS Admitting Unavailable Edgar, Izzy L Attending Unavailable Edgar, Izzy L Attending Unavailable Edgar, Izzy L Attending Unavailable Edgar, Izzy L Attending Unavailable Edgar, Izzy L Attending Unavailable Edgar, Izzy L Admitting Unavailable Edgar, Izzy L Attending Unavailable WINDNAGEL, JESÚS Attending Unavailable WINDNAGEL, JESÚS Admitting Unavailable Allergies Allergy Classification Reported Allergen(s) Allergy Type Date of Onset Reaction(s) Facility (2 sources) sulfaSALAzine Drug Allergy hives,fever, throat swelling [employer] [facility] Other (1 source) Sulfonamides (Antibiotic) Drug allergy (disorder) 11-05-19 13 [facility] Repository (2 sources) topiramate; Translations: [Topamax] Drug Allergy 08-28-19 22 [facility] Repository (7 sources) Protamine Sulfate (INTERMEDIATE); Translations: [protamine] Drug Allergy 01-11-20 23 hives, Itching, Rash [facility] Medicine Copen (5 sources) Substance with sulfonamide structure and antibacterial mechanism of action (substance) Drug allergy 04-04-20 23 Anaphylaxis [employer] Other (9 sources) Aspirin; Translations: [ASPIRIN] Drug Allergy 01-18-20 23 Hives, Itching, Rash, Swelling [facility] Repository (2 sources) diphenhydrAMINE; Translations: [DIPHENHYDRAMINE HCL] Drug Allergy 02-08-20 [facility] Repository (2 sources) Promethazine; Translations: [PROMETHAZINE] Drug Allergy 02-08-20 23 [facility] Repository (3 sources) Protamines; Translations: [PROTAMINE] Drug Allergy 01-11-20 [facility] Repository (2 sources) Sulfonamides (Antibiotic); Translations: [SULFA (SULFONAMIDE ANTIBIOTICS)] Propensity to adverse reactions to drug (disorder) 10-30-19 [facility] Repository (8 sources) topiramate; Translations: [TOPIRAMATE] Drug Allergy 01-19-20 Anaphylaxis (disorder), Anaphylaxis [facility] Repository (3 sources) Sulfonamides (Antibiotic); Translations: [sulfa drugs] Drug allergy Anaphylaxis (disorder) [facility] Medications Current Medications Medication Drug Class(es) Dates Sig (Normalized) Sig (Original) acetaminophen 325 mg oral tablet (4 sources) Start: 09-19-2022 take 2 tablets by mouth every four hours as needed acetaminophen (Tylenol) 325 MG tablet Take 650 mg by mouth every 4 (four) hours if needed 09/19/2022 Active [id number] 200 actuat albuterol 0.09 mg/actuat metered dose inhaler (1 source) beta2-Adrenergic Agonist Start: 03-22-2021 take 2 puff(s) by inhalation every four hours as needed Albuterol Sulfate HFA 108 (90 Base) MCG/ACT 2 puffs as needed Inhalation every 4 hrs Feb, Active atorvastatin 40 mg oral tablet (7 sources) HMG-CoA Reductase Inhibitor Start: 10-18-2022 End: 09-07-2024 take 1 tablet by mouth in the morning atorvastatin (Lipitor) 40 MG tablet Indications: 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 90 tablet 3 09/08/2023 09/07/2024 Active 24 hr buPROPion hydrochloride 150 mg extended release oral tablet (6 sources) Aminoketone Start: 06-07-2023 take 1 tablet by mouth once daily buPROPion 150 mg/24 hours XL Tab 150 mg = 1 tab(s), Oral, Daily, Refills(s) 0 Start Date: 06/07/23 Status: Ordered take 1 tablet by dena th once daily in the morning buPROPion SR (Wellbutrin SR) 100 MG 12 h r tablet Take 100 mg by mouth Daily in the Morning Do not crush, chew, or split. 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) Take 1 tablet (75 mg) by mouth Daily 90 tablet 3 02/21/2024 02/20/2025 Active dextromethorphan hydrobromide 15 mg / guaiFENesin 400 mg / pseudoephedrine hydrochloride 60 mg oral tablet (2 sources) alpha-Adrenergic Agonist, Uncompetitive T-narusk-Q-aspartat e Receptor Antagonist, Sigma-1 Agonist Start: 02-25-2023 take 4 tablets by mouth every twenty-four hours as needed Capmist DM 60-15-400 MG as needed Orally every 4-6 hours as needed, max 4 tablets in 24 hours for 5 days Feb, Active Start: 03-22-2021 take 1 tablet by dena th every four hours Capmist DM 60-15-400 MG 1 tablet as needed Orally every 4 hours for 10 days Feb, Active escitalopram 10 mg oral tablet (14 sources) Serotonin Reuptake Inhibitor Start: 02-11-2023 End: 03-23-2024 take 1 tablet by mouth in the morning escitalopram (Lexapro) 10 MG tablet Take 10 mg by mouth in the morning. 02/11/2023 03/23/2024 Active Start: 05-24-2022 take 1 tablet by dena th once daily in the morning escitalopram (Lexapro) 20 MG tablet TAKE 1 TABLET BY MOUTH ONCE EVERY MORNING 05/24/2022 Active ibuprofen 800 mg oral tablet (4 sources) Nonsteroidal Anti-inflammatory Drug Start: 09-07-2022 take 1 tablet by mouth three times daily as needed ibuprofen 800 MG tablet Take 800 mg by mouth 3 (three) times a day as needed 09/07/2022 Active LORazepam 0.5 mg oral tablet (4 sources) Benzodiazepine Start: 03-24-2023 take 1 tablet by mouth twice daily as needed for anxiety LORazepam (Ativan) 0.5 MG tablet Take 0.5 mg by mouth 2 (two) times a day as needed for anxiety 03/24/2023 Active 24 hr nicotine 0.875 mg/hr transdermal system (4 sources) Cholinergic Nicotinic Agonist nicotine (Nicoderm, Step 1) 21 MG/24HR patch Place 1 patch on the skin 1 (one) time each day at the same time Active nystatin [id number] unt/ml topical cream (1 source) Polyene Antifungal Start: 02-28-2024 nystatin Top 100,000 units/g Crm 15 gram 1 marilin, Topical, BID, 15 gram, Refill(s) 0, [facility]/pharmacy #[id number], 152.6, cm, 02/28/24 8:30:00 EST, Height/Length Dosing, 92.5, kg, 02/28/24 8:30:00 EST, Weight Dosing Start Date: 02/28/24 Status: Ordered rimegepant 75 mg disintegrating oral tablet (8 sources) Start: 08-18-2023 End: 02-21-2024 Rimegepant Sulfate (Nurtec) 75 MG tablet dispersible Indications: Migraine without aura and without status migrainosus, not intractable (CMS/HCC) Take every other day for headache prevention. You can take 1 tablet PRN on days when you have not already taken the medication if you have a severe headache. Do not exceed 1 tablet in 24 hours. 20 tablet 2 02/21/2024 Active Start: 08-17-2023 take 1 tablet by [facility] every 30 days as needed Nurtec ODT 75 mg oral tablet, disintegrating 75 mg = 1 tab(s), DISSOLVE 1 TABLET ON THE TONGUE NEEDED - TO LAST 30 DAYS Start Date: 08/17/23 Status: Ordered rOPINIRole 0.5 mg oral tablet (7 sources) Nonergot Dopamine Agonist Start: 02-21-2024 End: 02-20-2025 take 1 tablet by mouth at bedtime rOPINIRole (Requip) 0.5 MG tablet Indications: PLMD (periodic limb movement disorder) Take 1 tablet (0.5 mg) by mouth at bedtime 90 tablet 3 02/21/2024 02/20/2025 Active SITagliptin 25 mg oral tablet (6 sources) Dipeptidyl Peptidase 4 Inhibitor SITagliptin (Januvia) 25 MG tablet as directed Orally Active Januvia Active verapamil hydrochloride 120 mg extended release oral tablet (4 sources) Calcium Channel Aubrie Start: 03-13-2023 take 1 tablet by mouth in the morning verapamil SR (Calan SR) 120 MG ER tablet Take 120 mg by mouth in the morning. 03/13/2023 Active Completed/Discontinued Medications Medication Drug Class(es) Dates Sig (Normalized) Sig (Original) fluconazole 150 mg oral tablet (1 source) Azole Antifungal Start: 02-28-2024 take 4 tablets by mouth once Diflucan 150 mg Tab 150 mg = 1 tab(s), Oral, Once, take 1 tab on day one and 1 tabon day four, # 2 tab(s), Refills(s) 1, Pharmacy: [facility]/pharmacy #[id number], 152.6, cm, 02/28/24 8:30:00 EST, Height/Length Dosing, 92.5, kg, 02/28/24 8:30:00 EST, Weight Dosing Start Date: 02/28/24 Status: Ordered Problems Active Problems Problem Classification Problem Date Documented Date Episodic/Chronic Acute cerebrovascular disease (12 sources) Cerebral infarction, unspecified; Translations: [Cerebrovascular accident] Onset: 09-20-2022 08-04-2023 Chronic Acute cerebrovascular disease (1 source) NIHSS score 11; Translations: [NIHSS SCORE 11] Onset: 09-20-2022 Episodic Acute cerebrovascular disease (1 source) Acute cerebrovascular disease Onset: 06-13-2023 Anxiety disorders (1 source) Generalized anxiety disorder; Translations: [Generalized anxiety disorder] Onset: 01-05-2024 Chronic Cardiac and circulatory congenital anomalies (1 source) Patent foramen ovale; Translations: [Patent foramen ovale] Onset: 11-30-2022 Chronic Diabetes mellitus without complication (1 source) Type 2 diabetes mellitus without complications; Translations: [TYPE 2 DM WITHOUT COMPLICATIONS] Onset: 09-20-2022 Chronic Diabetes mellitus without complication (2 sources) High hemoglobin A1c level 08-31-2023 Episodic Esophageal disorders (1 source) Gastro-esophageal reflux disease without esophagitis; Translations: [GERD WITHOUT ESOPHAGITIS] Onset: 09-20-2022 Chronic Headache; including migraine (6 sources) Migraine without aura, not refractory ; Translations: [Migraine without aura, not intractable, without status migrainosus] Onset: 08-04-2023 09-04-2023 Chronic Malaise and fatigue (2 sources) Fatigue 08-31-2023 Episodic Mood disorders (5 sources) Bipolar disorder; Translations: [Recurrent major depressive episodes, moderate ] Onset: 02-03-2023 02-11-2023 Chronic Mycoses (1 source) Candidiasis 02-28-2024 Episodic Other aftercare (1 source) retirement (current) use of insulin; Translations: [ALF CURRENT USE OF INSULIN] Onset: 09-20-2022 Episodic Other aftercare (1 source) retirement (current) use of aspirin; Translations: [SPEECH CORRECTION ASSISTANT CURRENT USE OF ASPIRIN] Onset: 09-20-2022 Episodic Other connective tissue disease (3 sources) Facial weakness; Translations: [FACIAL WEAKNESS] Onset: 09-16-2022 Episodic Other lower respiratory disease (2 sources) Cough 03-03-2023 Episodic Other nutritional; endocrine; and metabolic disorders (1 source) Obesity, unspecified; Translations: [OBESITY UNSPECIFIED] Onset: 09-20-2022 Chronic Other nutritional; endocrine; and metabolic disorders (2 sources) Body mass index 40+ - severely obese 03-03-2023 Chronic Other nutritional; endocrine; and metabolic disorders (4 sources) Obesity; Translations: [Obesity, unspecified] Onset: 08-04-2023 08-04-2023 Chronic Other nutritional; endocrine; and metabolic disorders (2 sources) Body mass index 30+ - obesity 02-28-2024 Chronic Other upper respiratory disease (2 sources) Seasonal allergy 08-31-2023 Chronic Other upper respiratory infections (2 sources) Sinusitis 03-03-2023 Chronic Other upper respiratory infections (1 source) Acute upper respiratory infection, unspecified Episodic Otitis media and related conditions (2 sources) Otitis media 03-03-2023 Episodic Residual codes; unclassified (4 sources) Hypersomnia; Translations: [Hypersomnia, unspecified] Onset: 08-04-2023 09-04-2023 Chronic Residual codes; unclassified (6 sources) Periodic limb movement disorder; Translations: [Periodic limb movement disorder] Onset: 08-04-2023 08-04-2023 Chronic Residual codes; unclassified (4 sources) Obstructive sleep apnea syndrome; Translations: [Obstructive sleep apnea (adult) (pediatric)] Onset: 08-04-2023 08-04-2023 Chronic Residual codes; unclassified (1 source) Acquired absence of other specified parts of digestive tract; Translations: [ACQ ABSENCE OTH PART DIGESTV TRACT] Onset: 09-20-2022 Episodic Residual codes; unclassified (1 source) Pain, unspecified; Translations: [Pain, unspecified] Onset: 06-13-2023 Episodic Residual codes; unclassified (2 sources) Insomnia 08-17-2023 Episodic Residual codes; unclassified (1 source) Tobacco user 02-23-2024 Episodic Substance-related disorders (1 source) Nicotine dependence, cigarettes, uncomplicated; Translations: [NICOTINE DEPEND CIGARETTES UNCOMP] Onset: 09-20-2022 Chronic Unclassified (10 sources) Patient encounter status 10-18-2022 Past or Other Problems Problem Classification Problem Date Documented Date Episodic/Chronic Cardiac and circulatory congenital anomalies (1 source) Personal history of (corrected) congenital malformations of heart and circulatory system; Translations: [Personal history of (corrected) congenital malformations of heart and circulatory system] Onset: 07-25-2023 Episodic Immunizations and screening for infectious disease (2 sources) Contact with and (suspected) exposure to other viral communicable diseases; Translations: [Encounter for screening for human papillomavirus (HPV)] Onset: 03-22-2021 Resolved: 03-22-2021 Episodic Other circulatory disease (4 sources) History of cerebrovascular accident; Translations: [Personal history of transient ischemic attack (TIA), and cerebral infarction without residual deficits] Onset: 04-04-2023 04-04-2023 Episodic Other screening for suspected conditions (not mental disorders or infectious disease) (8 sources) Encounter for screening mammogram for malignant neoplasm of breast; Translations: [Encounter for screening for malignant neoplasm of cervix] Onset: 05-12-2022 Episodic Syncope (4 sources) Syncope and collapse; Translations: [SYNCOPE AND COLLAPSE] Onset: 06-29-2022 Episodic Unclassified (1 source) Cough R05.9 Onset: 11-14-2021 Resolved: 11-14-2021 Unclassified (1 source) Contact with and (suspected) exposure to covid-19 Z20.822 Viral infection (2 sources) COVID-19 Onset: 03-22-2021 Resolved: 11-14-2021 Results Test Name Value Interpretation Reference Range Facility COAGULATIONOrdered By: Bc Dan on 03-07-2024 Platelet function (closure time) collagen+EPINEPHrine induced (Bld) [Time] 102 s Normal 70 - 138 second(s) [facility] [place] [place] Man Sero Comment on above: Interpretive Data: N ormal ASA vWD Ana s Thrombasthenia ------- ------ ------- COL/EPI Normal Abnormal Abnormal Abnormal Col/ADP Normal Normal Abnormal Abnormal [facility] [place] [place] PLT FUNCTION ASSAYon [facility] [place] [place] PLATELET FUNCTION.COLLAGEN+EPIN EPHRINE INDUCED:TIME:PT:BLD:QN : 102 [facility] Comment on above: Normal ASA vWD Rajat albaaminta???s Thrombasthenia ------- ------ ------- COL/EPI Normal Abnormal Abnormal Abnormal Col/ADP Normal Normal Abnormal Abnormal Original Ordering Provider: NAKUL VE[facility] Plt Function Assayon Platelet function (closure time) collagen+EPINEPHrine induced (Bld) [Time] 102 second(s) Normal 70-138 [facility] Comment on above: Result Comment: Norm al ASA vWD Ana???s Thrombasthenia ------- ------ ------- COL/EPI Normal Abnormal Abnormal Abnormal Col/ADP Normal Normal Abnormal Abnormal Performed By: #### 1 [id number] #### [facility] [address] [place] [address] Ambulatory Visit Summaryon 04-29-2023 Ambulatory Visit Summary Ambulatory Visit Summary VALERIE KAMARA :1980 Visit Date:02/28/2024 Ambulatory Visit Instructions Your Diagnosis Affective bipolar disorder Candidiasis Smoker BMI 39.0-39.9,adult Obesity (BMI 30-39.9) Your Care Team Attending Physician - Izzy Porras Primary Care Physician - Izzy Porras This Is Your Medications List atorvastatin (atorvastatin 40 mg Tab) buPROPion (buPROPion 150 mg/24 hours XL Tab) clopidogrel (Plavix 75 mg Tab) escitalopram (escitalopram 10 mg Tab) escitalopram (escitalopram 20 mg Tab) rimegepant (Nurtec ODT 75 mg oral tablet, disintegrating) ropinirole (ropinirole 0.5 mg Tab) Procedures Performed Surgery (12/2022), Hysterectomy (01/23/2021), delivery (04/15/2020), delivery (12/22/2015), Cholecystectomy (04/25/2006), section (12/14/2004). Discharge Vitals Temperature (Tympanic) 36.5 ???C Heart Rate (Peripheral) 76 Respiratory Rate 18 Blood Pressure 136/84 Height 152.6 cm Height 60 in Weight 92.45 kg Weight 203.39 lb BMI 39.7 Medications What How Much When Instructions Unchanged atorvastatin (atorvastatin 40 mg Tab) 1 Tablets By Mouth Every day Unchanged buPROPion (buPROPion 150 mg/ 24 hours XL Tab) 1 Tablets By Mouth Every day Unchanged clopidogrel (Plavix 75 mg Tab) 1 Tablets By Mouth Every day Unchanged escitalopram (escitalopram 10 mg Tab) 1 Tablets By Mouth Every day Unchanged escitalopram (escitalopram 20 mg Tab) 1 Tablets By Mouth Every day Unchanged rimegepant (Nurtec ODT 75 mg oral tablet, disintegrating) 1 Tablets DISSOLVE 1 TABLET ON THE TONGUE NEEDED - TO LAST 30 DAYS Unchanged ropinirole (ropinirole 0.5 mg Tab) 1 Tablets Allergies Topamax (Anaphylaxis) aspirin protamine sulfa drugs (Anaphylaxis) Problems Ongoing - Any problem that you are currently receiving treatment for. Affective bipolar disorder Bilateral otitis media BMI 39.0-39.9,adult Breast cancer screening by mammogram Candidiasis Cerebral infarction (ischemic stroke) Cough Depression, major, recurrent, moderate Elevated hemoglobin A1c Establishing care with new doctor, encounter for Fatigue Insomnia Morbid obesity with BMI of 40.0-44.9, adult Obesity (BMI 30-39.9) Screening for hyperlipidemia Screening for thyroid disorder Seasonal allergies Sinusitis Wellness examination Patient Survey You may receive a survey via text or e-mail asking about your office visit. Please share your experience with us by completing your survey. We appreciate your feedback and thank you for choosing us for your care. [facility] Medicine Office/Clini c Noteon 02-28-2024 Family Medicine Office/Clinic Note Family Medicine Office/Clinic Note Chief Complaint FMLA paperwork renewal HPI Staff Pt presents today for FMLA paperwork renewal. Last FMLA forms signed 02/08/23. Pt did start using aluminum free deodorant. Now has raw tender area in Rt armpit. Has tried Cortisone Cream. No relief. No other concerns at this time. History of Present Illness pt presents today for follow up and update on FMLA paper work and rash under arm Physical Exam Vitals & Measurements T: 36.5 ???C(Tympanic) HR: 76(Peripheral) RR: 18 BP: 136/84 SpO2: 97% HT: 60 in HT: 152.6 cm WT: 92.45 kg WT: 203.39 lb BMI: 39.7 General: alert, no acute distress ENMT: oral mucosa moist, no pharyngeal erythema or exudate Cardiovascular: regular rate and rhythm, normal peripheral perfusion Respiratory: Lungs CTA, respirations non labored Extremities: no deformity, no trauma Neurological: oriented x 4, LOC appropriate for age, CN II-XII intact, motor strength equal & normal bilaterally, speech normal Assessment/Plan 1. Affective bipolar disorder (F31.9: Bipolar disorder, unspecified) pt is stable at this time. does not need refills. FMLA paper work completed for . all questions answered. RTC as needed Ordered: fluconazole, 150 mg = 1 tab(s), Oral, Once, take 1 tab on day one and 1 tabon day four, # 2 tab(s), Refills(s) 1, Pharmacy: [facility]/pharmacy #[id number], 152.6, cm, 02/28/24 8:30:00 EST, Height/Length Dosing, 92.5, kg, 02/28/24 8:30:00 EST, Weight Dosing nystatin topical, 1 marilin, Topical, BID, 15 gram, Refill(s) 0, [facility]/pharmacy #[id number], 152.6, cm, 02/28/24 8:30:00 EST, Height/Length Dosing, 92.5, kg, 02/28/24 8:30:00 EST, Weight Dosing 2. Candidiasis (B37.9: Candidiasis, unspecified) pt used different deodorant and has a red itchy rash under right arm. it appears to be yeasty Ordered: fluconazole, 150 mg = 1 tab(s), Oral, Once, take 1 tab on day one and 1 tabon day four, # 2 tab(s), Refills(s) 1, [id number] 152.6, cm, 02/28/24 8:30:00 EST, Height/Length Dosing, 92.5, kg, 02/28/24 8:30:00 EST, Weight Dosing nystatin topical, 1 marilin, Topical, BID, 15 gram, Refill(s) 0, [facility]/pharmacy #[id number], 152.6, cm, 02/28/24 8:30:00 EST, Height/Length Dosing, 92.5, kg, 02/28/24 8:30:00 EST, Weight Dosing 3. Smoker (F17.200: Nicotine dependence, unspecified, uncomplicated) continue not smoking Ordered: fluconazole, 150 mg = 1 tab(s), Oral, Once, take 1 tab on day one and 1 tabon day four, # 2 tab(s), Refills(s) 1, [id number], 152.6, cm, 02/28/24 8:30:00 EST, Height/Length Dosing, 92.5, kg, 02/28/24 8:30:00 EST, Weight Dosing nystatin topical, 1 marilin, Topical, BID, 15 gram, Refill(s) 0, [id number], 152.6, cm, 02/28/24 8:30:00 EST, Height/Length Dosing, 92.5, kg, 02/28/24 8:30:00 EST, Weight Dosing 4. BMI 39.0-39.9,adult (Z68.39: Body mass index [BMI] 39.0-39.9, adult) BMI education Ordered: fluconazole, 150 mg = 1 tab(s), Oral, Once, take 1 tab on day one and 1 tabon day four, # 2 tab(s), Refills(s) 1, Pharmacy: [facility]/pharmacy #[id number], 152.6, cm, 02/28/24 8:30:00 EST, Height/Length Dosing, 92.5, kg, 02/28/24 8:30:00 EST, Weight Dosing nystatin topical, 1 marilin, Topical, BID, 15 gram, Refill(s) 0, [facility]/pharmacy #[id number], 152.6, cm, 02/28/24 8:30:00 EST, Height/Length Dosing, 92.5, kg, 02/28/24 8:30:00 EST, Weight Dosing 5. Obesity (BMI 30-39.9) (E66.9: Obesity, unspecified) see above Ordered: fluconazole, 150 mg = 1 tab(s), Oral, Once, take 1 tab on day one and 1 tabon day four, # 2 tab(s), Refills(s) 1, Pharmacy: [facility]/pharmacy #[id number], 152.6, cm, 02/28/24 8:30:00 EST, Height/Length Dosing, 92.5, kg, 02/28/24 8:30:00 EST, Weight Dosing nystatin topical, 1 marilin, Topical, BID, 15 gram, Refill(s) 0, [facility]/pharmacy #[id number], 152.6, cm, 02/28/24 8:30:00 EST, Height/Length Dosing, 92.5, kg, 02/28/24 8:30:00 EST, Weight Dosing Follow-up No qualifying data available Problem List/Past Medical History Ongoing Affective bipolar disorder Bilateral otitis media BMI 39.0-39.9,adult Breast cancer screening by mammogram Candidiasis Cerebral infarction (ischemic stroke) Cough Depression, major, recurrent, moderate Elevated hemoglobin A1c Establishing care with new doctor, encounter for Fatigue Insomnia Morbid obesity with BMI of 40.0-44.9, adult Obesity (BMI 30-39.9) Screening for hyperlipidemia Screening for thyroid disorder Seasonal allergies Sinusitis Wellness examination Historical No qualifying data Procedure/Surgical History Surgery (12/2022), Hysterectomy (01/23/2021), delivery (04/15/2020), delivery (12/22/2015), Cholecystectomy (04/25/2006), section (12/14/2004). Medications atorvastatin 40 mg Tab, 40 mg= 1 tab(s), Oral, Daily buPROPion 150 mg/24 hours XL Tab, 150 mg= 1 tab(s), Oral, Daily Diflucan 150 mg Tab, 150 mg= 1 tab(s), Oral, Once, 1 refills escitalopram 10 mg Tab, 10 mg= 1 tab(s), Oral, Daily escitalopram 20 mg Tab, 20 mg= 1 tab(s), Oral, Daily Nurtec ODT 75 mg o (more content not included)... Normal [facility] Comment on above: Result Comment: Elec tronically Signed By: Izzy Porras\.br\Date and Time Signed: 02/28/24 09:16 EST Outside Mammographyon 2023 Outside Mammography [id number] B#1.00TIFF [facility] Ambulatory Visit Summaryon 0 08-31-2023 Ambulatory Visit Summary ANH, VALERIE Rivera :1980 Visit Date:08/31/2023 Ambulatory Visit Instructions Your Diagnosis Wellness examination Screening for hyperlipidemia Screening for thyroid disorder Fatigue Elevated hemoglobin A1c Breast cancer screening by mammogram Seasonal allergies BMI 40.0-44.9, adult Smoker Your Care Team Attending Physician - Izzy Porras Primary Care Physician - Izzy Porras This Is Your Medications List atorvastatin (atorvastatin 40 mg Tab) buPROPion (buPROPion 150 mg/24 hours XL Tab) clopidogrel (Plavix 75 mg Tab) escitalopram (escitalopram 10 mg Tab) escitalopram (escitalopram 20 mg Tab) rimegepant (Nurtec ODT 75 mg oral tablet, disintegrating) Procedures Performed Surgery (12/2022), Hysterectomy (01/23/2021), delivery (04/15/2020), delivery (12/22/2015), Cholecystectomy (04/25/2006), section (12/14/2004). Discharge Vitals Heart Rate (Peripheral) 80 Respiratory Rate 18 Blood Pressure 128/74 Height 152.6 cm Height 60 in Weight 96.0 kg Weight 211.2 lb BMI 41.23 Medications What How Much When Instructions Unchanged atorvastatin (atorvastatin 40 mg Tab) 1 Tablets By Mouth Every day Unchanged buPROPion (buPROPion 150 mg/ 24 hours XL Tab) 1 Tablets By Mouth Every day Unchanged clopidogrel (Plavix 75 mg Tab) 1 Tablets By Mouth Every day Unchanged escitalopram (escitalopram 10 mg Tab) 1 Tablets By Mouth Every day Unchanged escitalopram (escitalopram 20 mg Tab) 1 Tablets By Mouth Every day Unchanged rimegepant (Nurtec ODT 75 mg oral tablet, disintegrating) 1 Tablets DISSOLVE 1 TABLET ON THE TONGUE NEEDED - TO LAST 30 DAYS Allergies Topamax (Anaphylaxis) aspirin protamine sulfa drugs (Anaphylaxis) Problems Ongoing - Any problem that you are currently receiving treatment for. Affective bipolar disorder Bilateral otitis media Breast cancer screening by mammogram Cough Depression, major, recurrent, moderate Elevated hemoglobin A1c Establishing care with new doctor, encounter for Fatigue Insomnia Morbid obesity with BMI of 40.0-44.9, adult Screening for hyperlipidemia Screening for thyroid disorder Seasonal allergies Sinusitis Wellness examination Patient Survey You may receive a survey via text or e-mail asking about your office visit. Please share your experience with us by completing your survey. We appreciate your feedback and thank you for choosing us for your care. Normal [facility] CBC w/ Auto Diffon 4 Basophils/100 WBC (Bld) 0.3 % Normal 0.0-2.0 [facility] Comment on above: Performed By: #### 2 554427, 0862440, 4454613, 0028397, 74743564 ####[facility] [address] [place] [address] Basophils/Leukocytes Auto (Bld) [Pure # fraction] 0.0 E9/L Normal 0.0-0.2 [facility] Comment on above: Performed By: #### 2 445725, 8483907, 8214951, 5492714, 95942557 ####[facility] [address] [place] [address] Eosinophils (Bld) [#/Vol] 0.1 E9/L Normal 0.0-0.5 [facility] Comment on above: Performed By: #### 2 114344, 6116976, 7231101, 8555387, 45242003 ####[facility] [address] [place] [address] Eosinophils/100 WBC (Bld) 0.9 % Normal 0.0-8.0 [facility] Comment on above: Performed By: #### 2 168768, 4518307, 2823053, 3172334, 24351568 ####[address] [address] Erythrocyte distribution width (RBC) [Ratio] 13.6 % Normal 10.9-14.2 [facility] Comment on above: Performed By: #### 2 067256, 0845314, 8790294, 6723231, 01122460 ####[address] [address] Hematocrit (Bld) [Volume fraction] 43.6 % Normal 34.0-46.0 [facility] Comment on above: Performed By: #### 2 420123, 8704590, 6989065, 5123868, 44754387 ####[address] [address] Hemoglobin (Bld) [Mass/Vol] 14.5 g/dL Normal 12.0-16.0 [facility] Comment on above: Performed By: #### 2 913977, 2821960, 0698876, 4991277, 93424507 ####[address] [address] Lymphocytes (Bld) [#/Vol] 2.7 E9/L Normal 1.0-4.0 [facility] Comment on above: Performed By: #### 2 419176, 3412799, 1135655, 6151767, 81137294 ####[address] [address] Lymphocytes/100 WBC (Bld) 29.3 % Normal 14.0-50.0 [facility] Comment on above: Performed By: #### 2 862502, 7262236, 7181560, 8503005, 94760648 ####[address] [address] MCH (RBC) [Entitic mass] 30.9 pg Normal 27.0-34.0 [facility] Comment on above: Performed By: #### 2 624248, 9466418, 4026965, 9208752, 29305164 ####[address] [address] MCHC (RBC) [Mass/Vol] 33.2 g/dL Normal 31.4-36.0 [facility] Comment on above: Performed By: #### 2 954839, 6736960, 5717404, 1005918, 74273616 ####[place] [address] MCV (RBC) [Entitic vol] 93.0 fL Normal 80.0-100.0 [facility] Comment on above: Performed By: #### 2 579890, 1414243, 9567292, 1061748, 57838971 ####[place] [address] Monocytes (Bld) [#/Vol] 0.5 E9/L Normal 0.2-1.0 [facility] Comment on above: Performed By: #### 2 513265, 0754104, 6881838, 0293381, 61844947 ####[place] [address] Neutrophils (Bld) [#/Vol] 5.8 E9/L Normal 2.0-7.5 [facility] Comment on above: Performed By: #### 2 235629, 8224009, 2612753, 6914535, 35984478 ####[place] [address] Neutrophils/100 WBC (Bld) 64.0 % Normal 36.0-75.0 [facility] Comment on above: Performed By: #### 2 956674, 0459063, 3618985, 3866096, 22173093 ####[address] [address] Platelet mean volume (Bld) [Entitic vol] 8.8 fL Normal 6.4-10.8 [facility] Comment on above: Performed By: #### 2 134305, 6483912, 8097737, 1664884, 08250072 ####[facility] [address] [place] [address] Platelets (Bld) [#/Vol] 243.0 E9/L Normal 150.0-500.0 [facility] Comment on above: Performed By: #### 2 781756, 0040186, 9404123, 0066967, 52039227 ####[facility] [address] [place] [address] RBC (Bld) [#/Vol] 4.7 E12/L Normal 4.3-5.9 [facility] Comment on above: Performed By: #### 2 535286, 1844752, 9643390, 1825230, 89942441 ####[facility] [address] [place] [address] WBC corrected for nucl RBC Auto (Bld) [#/Vol] 9.1 E9/L Normal 4.0-11.0 [facility] Comment on above: Performed By: #### 2 473897, 2929016, 8236644, 4911999, 85876161 ####[facility] [address] [place] [address] CHEMISTRYOrdered By: SYSTEM SYSTEM on 08-31-2023 Albumin [Mass/Vol] 4.2 g/dL Normal 3.3 - 5.0 gm/dL [facility] Albumin/Globulin [Mass ratio] 1.4 {ratio} Normal 1.1 - 2.2 [facility] ALP [Catalytic activity/Vol] 62 [iU]/d Normal 21 - 98 Int._Unit/L [facility] ALT No additional P-5'-P [Catalytic activity/Vol] 30 [iU]/d Normal 6 - 46 Int._Unit/L [facility] Anion gap [Moles/Vol] 10 mmol/L Normal 6 - 16 mEq/L R emisol Chem AST [Catalytic activity/Vol] 21 [iU]/d Normal 5 - 43 Int._Unit/L [facility] Bilirubin [Mass/Vol] 0.3 mg/dL Normal 0.0 - 1 .1 mg/dL [facility] Calcium [Mass/Vol] 8.9 mg/dL Normal 8.9 - 11. 1 mg/dL [facility] Chloride [Moles/Vol] 106 mmol/L Normal 101 - 1 11 mmol/L [facility] Cholesterol [Mass/Vol] 155 mg/dL Normal 120 - 200 mg/dL [facility] Cholesterol in HDL [Mass/Vol] 31 mg/dL Invalid Interpretation Code [facility] Comment on above: Result Comment: '>= 60 LOW RISK' '<= 40 HIGH RISK' Cholesterol in LDL [Mass/Vol] 105 mg/dL Normal <=129mg/dL [facility] Cholesterol in VLDL [Mass/Vol] 53 mg/dL High 7 - 40 mg/dL [facility] CO2 [Moles/Vol] 25 mmol/L Normal 21 - 31 mmol/L [facility] Creatinine [Mass/Vol] 0.8 mg/dL Normal 0.5 - 1.3 mg/dL [facility] eGFR 95 mL/min/1.73 m2 Normal >=59mL/min /1 .73 m2 [facility] Globulin (S) [Mass/Vol] 2.9 g/dL Normal 1.4 - 4.0 gm/dL [facility] Glucose [Mass/Vol] 113 mg/dL Normal 55 - 199 mg/dL [facility] Potassium [Moles/Vol] 4.1 mmol/L Normal 3.5 - 5.3 mmol/L [facility] Protein [Mass/Vol] 7.1 g/dL Normal 6.0 - 7.8 gm/dL [facility] Sodium [Moles/Vol] 137 mmol/L Normal 135 - 145 mmol/L [facility] Triglyceride [Mass/Vol] 265 mg/dL High <=149mg/dL [facility] TSH Qn 1.56 m[IU]/L Normal 0.34 - 5.60 mcIU/mL [facility] Urea nitrogen [Mass/Vol] 8 mg/dL Normal 5 - 21 mg/dL [facility] Urea nitrogen/Creatinine [Mass ratio] 10 mg/mg Normal 10 - 20 [facility] CHEMISTRYOrdered By: Jose carr on 08-31-2023 HbA1c (Bld) [Mass fraction] 6.0 % High <=5.9% [facility] [place] [place] ChemAutoSS CMPon 08-31-2023 Albumin [Mass/Vol] 4.2 g/dL Normal 3.3-5.0 [facility] Comment on above: Performed By: #### 2 376522, 0396918, 9234306, 7738527, 24645015 ####[facility] [address] [place] [address] Albumin/Globulin (S) [Mass conc ratio] 1.4 Normal 1.1-2.2 [facility] Comment on above: Performed By: #### 2 543788, 4867485, 1294131, 0430601, 29998232 ####[facility] [address] [place] [address] ALP [Catalytic activity/Vol] 62 Int._Unit/L Normal 21-98 [facility] Comment on above: Performed By: #### 2 881399, 0832885, 3815873, 7062867, 67847301 ####[facility] [address] [place] [address] ALT No additional P-5'-P [Catalytic activity/Vol] 30 Int._Unit/L Normal 6-46 [facility] Comment on above: Performed By: #### 2 295145, 2890949, 5835561, 1737448, 06941729 ####[facility] [address] [place] [address] Anion gap [Moles/Vol] 10 mmol/L Normal 6-16 [facility] Comment on above: Performed By: #### 2 950850, 8381090, 7657948, 5483587, 80992509 ####[facility] [address] [place] [address] AST [Catalytic activity/Vol] 21 Int._Unit/L Normal 5-43 [facility] Comment on above: Performed By: #### 2 796040, 6826616, 5577046, 9129499, 41632605 ####[facility] [address] [place] [address] Bilirubin [Mass/Vol] 0.3 mg/dL Normal 0.0-1.1 [facility] Comment on above: Performed By: #### 2 733733, 4019765, 8735275, 4675929, 79020537 ####[facility] [address] [place] [address] Calcium [Mass/Vol] 8.9 mg/dL Normal 8.9-11.1 [facility] Comment on above: Performed By: #### 2 174720, 5425159, 8752626, 1286181, 13209810 ####[facility] [address] [place] [address] Chloride [Moles/Vol] 106 mmol/L Normal 101-111 [facility] Comment on above: Performed By: #### 2 843269, 4176271, 7535554, 2484102, 83244564 ####[facility] [address] [place] [address] CO2 [Moles/Vol] 25 mmol/L Normal 21-31 [facility] Comment on above: Performed By: #### 2 538512, 1894581, 7236118, 3216741, 66302102 ####[facility] [address] [place] [address] Creatinine [Mass/Vol] 0.8 mg/dL Normal 0.5-1.3 [facility] Comment on above: Performed By: #### 2 778608, 0417257, 6208248, 0617229, 59389075 ####[facility] [address] [place] [address] Globulin (S) [Mass/Vol] 2.9 g/dL Normal 1.4-4.0 [facility] Comment on above: Performed By: #### 2 511447, 3244334, 4429277, 6886832, 22113149 ####[facility] [address] [place] [address] Glucose [Mass/Vol] 113 mg/dL Normal 55-199 [facility] Comment on above: Performed By: #### 2 630455, 6441681, 5195377, 7777876, 84810949 ####[facility] [address] [place] [address] Potassium [Moles/Vol] 4.1 mmol/L Normal 3.5-5.3 [facility] Comment on above: Performed By: #### 2 495846, 0449070, 3730223, 1478781, 91454850 ####[facility] [address] [place] [address] Protein [Mass/Vol] 7.1 g/dL Normal 6.0-7.8 [facility] Comment on above: Performed By: #### 2 112421, 4192467, 1528097, 5514593, 61266803 ####[facility] [address] [place] [address] Sodium [Moles/Vol] 137 mmol/L Normal 135-145 [facility] Comment on above: Performed By: #### 2 018791, 4198051, 1917943, 0066793, 52325742 ####[facility] [address] [place] [address] Urea nitrogen [Mass/Vol] 8 mg/dL Normal 5-21 [facility] Comment on above: Performed By: #### 2 452977, 0596955, 6703996, 4642150, 94878640 ####[facility] [address] [place] [address] Urea nitrogen/Creatinine [Mass ratio] 10 No Units Normal 10-20 [facility] Comment on above: Performed By: #### 2 162466, 8379800, 1514495, 2229823, 74528386 ####[facility] [address] [place] [address] Consenton 08-31-2023 Consent [id number] 7#1.00TIFF Normal [facility] Medicine Office/Clini c Noteon 08-31-2023 Family Medicine Office/Clinic Note HPI Staff Valerie is a 43 year old female presenting yearly physical Health Maintenance: Mammo: 06/2022 Pap: 05/12/22 Last Labs: Due History of Present Illness pt presents today for annual wellness visit. will draw labs today Review of Systems PHQ Score Initial Depression Screen Score: 0 SCORE Physical Exam Vitals & Measurements HR: 80(Peripheral) RR: 18 BP: 128/74 SpO2: 98% HT: 60 in HT: 152.6 cm WT: 96.0 kg WT: 211.2 lb BMI: 41.23 General: alert, no acute distress ENMT: oral mucosa moist, no pharyngeal erythema or exudate Cardiovascular: regular rate and rhythm, normal peripheral perfusion Respiratory: Lungs CTA, respirations non labored Extremities: no deformity, no trauma Neurological: oriented x 4, LOC appropriate for age, CN II-XII intact, motor strength equal & normal bilaterally, speech normal Assessment/Plan 1. Wellness examination (Z00.00: Encounter for general adult medical examination without abnormal findings) pt presents today for annual wellness exam. pt denies needs today. will draw labs in office. she will call OBGYN and schedule well woman exam. will order mammogram today. RTC as needed Ordered: methylPREDNISolone, 40 mg = 1 mL, Susp-Inj, IntraMuscular, Once, Stop date 08/31/23 8:58:00 EDT, Routine, Start date 08/31/23 8:58:00 EDT, 08/31/23 8:58:00 EDT CBC w/ Auto Diff Comprehensive Metabolic Panel HgbA1c Lab Specimen Collect [id number] Lipid Panel Thyroid Stimulating Hormone 2. Screening for hyperlipidemia (Z13.220: Encounter for screening for lipoid disorders) lipid panel drawn Ordered: methylPREDNISolone, 40 mg = 1 mL, Susp-Inj, IntraMuscular, Once, Stop date 08/31/23 8:58:00 EDT, Routine, Start date 08/31/23 8:58:00 EDT, 08/31/23 8:58:00 EDT CBC w/ Auto Diff Comprehensive Metabolic Panel HgbA1c Lab Specimen Collect 51783 Lipid Panel Thyroid Stimulating Hormone 3. Screening for thyroid disorder (Z13.29: Encounter for screening for other suspected endocrine disorder) TSH drawn Ordered: methylPREDNISolone, 40 mg = 1 mL, Susp-Inj, IntraMuscular, Once, Stop date 08/31/23 8:58:00 EDT, Routine, Start date 08/31/23 8:58:00 EDT, 08/31/23 8:58:00 EDT CBC w/ Auto Diff Comprehensive Metabolic Panel HgbA1c Lab Specimen Collect 62412 Lipid Panel Thyroid Stimulating Hormone 4. Fatigue (R53.83: Other fatigue) TSH and CBC drawn Ordered: methylPREDNISolone, 40 mg = 1 mL, Susp-Inj, IntraMuscular, Once, Stop date 08/31/23 8:58:00 EDT, Routine, Start date 08/31/23 8:58:00 EDT, 08/31/23 8:58:00 EDT CBC w/ Auto Diff Comprehensive Metabolic Panel HgbA1c Lab Specimen Collect 82632 Lipid Panel Thyroid Stimulating Hormone 5. Elevated hemoglobin A1c (R73.09: Other abnormal glucose) will check today Ordered: methylPREDNISolone, 40 mg = 1 mL, Susp-Inj, IntraMuscular, Once, Stop date 08/31/23 8:58:00 EDT, Routine, Start date 08/31/23 8:58:00 EDT, 08/31/23 8:58:00 EDT HgbA1c Lab Specimen Collect [id number] 6. Breast cancer screening by mammogram (Z12.31: Encounter for screening mammogram for malignant neoplasm of breast) order for mammogram provided. sent to [facility] as well 7. Seasonal allergies (J30.2: Other seasonal allergic rhinitis) seasonal allergies are flared up. will give depo medrol in office today 8. BMI 40.0-44.9, adult (Z68.41: Body mass index [BMI] 40.0-44.9, adult) bmi education complete Ordered: HgbA1c 9. Smoker (F17.200: Nicotine dependence, unspecified, uncomplicated) consider not smoking Ordered: HgbA1c Follow-up No qualifying data available Problem List/Past Medical History Ongoing Affective bipolar disorder Bilateral otitis media Breast cancer screening by mammogram Cough Depression, major, recurrent, moderate Elevated hemoglobin A1c Establishing care with new doctor, encounter for Fatigue Insomnia Morbid obesity with BMI of 40.0-44.9, adult Screening for hyperlipidemia Screening for thyroid disorder Seasonal allergies Sinusitis Wellness examination Historical No qualifying data Procedure/Surgical History Surgery (12/2022), Hysterectomy (01/23/2021), delivery (04/15/2020), delivery (12/22/2015), Cholecystectomy (04/25/2006), section (12/14/2004). Medications atorvastatin 40 mg Tab, 40 mg= 1 tab(s), Oral, Daily buPROPion 150 mg/24 hours XL Tab, 150 mg= 1 tab(s), Oral, Daily escitalopram 10 mg Tab, 10 mg= 1 tab(s), Oral, Daily escitalopram 20 mg Tab, 20 mg= 1 tab(s), Oral, Daily Nurtec ODT 75 mg oral tablet, disintegrating, 75 mg= 1 tab(s) Plavix 75 mg Tab, 75 mg= 1 tab(s), Oral, Daily Allergies Topamax (Anaphylaxis) aspirin protamine sulfa drugs (Anaphylaxis) Social History Tobacco - No Risk, 10/18/2022 10 or more cigarettes (1/2 pack or more)/day in last 30 days Tobacco Use:. Cigarettes, Ready to change: No. Household tobacco concerns: No. Yes, 08/31/2023 Normal [facility] Comment on above: Result Comment: Elec tronically Signed By: Edgar DONALDSON, Izzy Rivera\.br\Date and Time Signed: 08/31/23 12:37 EDT HEMATOLOGYOrdered By: SYSTEM SYSTEM on 08-31-2023 Basophils/100 WBC (Bld) 0.3 % Normal 0.0 - 2.0 % [facility] Basophils/Leukocytes Auto (Bld) [Pure # fraction] 0.0 E9/L Normal 0.0 - 0.2 E9/L [facility] Eosinophils (Bld) [#/Vol] 0.1 E9/L Normal 0.0 - 0.5 E9/L [facility] Eosinophils/100 WBC (Bld) 0.9 % Normal 0.0 - 8.0 % [facility] Erythrocyte distribution width (RBC) [Ratio] 13.6 % Normal 10.9 - 14.2 % [facility] Hematocrit (Bld) [Volume fraction] 43.6 % Normal 34.0 - 46.0 % [facility] Hemoglobin (Bld) [Mass/Vol] 14.5 g/dL Normal 12.0 - 16.0 gm/dL [facility] Lymphocytes (Bld) [#/Vol] 2.7 E9/L Normal 1.0 - 4.0 E9/L [facility] Lymphocytes/100 WBC (Bld) 29.3 % Normal 14.0 - 50.0 % [facility] MCH (RBC) [Entitic mass] 30.9 pg Normal 27.0 - 34.0 pg [facility] MCHC (RBC) [Mass/Vol] 33.2 g/dL Normal 31.4 - 36.0 gm/dL [facility] MCV (RBC) [Entitic vol] 93.0 fL Normal 80.0 - 100.0 fL [facility] Monocytes (Bld) [#/Vol] 0.5 E9/L Normal 0.2 - 1.0 E9/L [facility] Monocytes/100 WBC (Bld) 5.5 % Normal 4.0 - 14.0 % [facility] Neutrophils (Bld) [#/Vol] 5.8 E9/L Normal 2.0 - 7.5 E9/L [facility] Neutrophils/100 WBC (Bld) 64.0 % Normal 36.0 - 75.0 % [facility] Platelet mean volume (Bld) [Entitic vol] 8.8 fL Normal 6.4 - 10.8 fL [facility] Platelets (Bld) [#/Vol] 243.0 E9/L Normal 150.0 - 500.0 E9/L [facility] RBC (Bld) [#/Vol] 4.7 E12/L Normal 4.3 - 5.9 E12/L [facility] WBC corrected for nucl RBC Auto (Bld) [#/Vol] 9.1 E9/L Normal 4.0 - 11.0 E9/L [facility] XruC2vsl 08-31-2023 HbA1c (Bld) [Mass fraction] 6.0 % High <=5.9 [facility] Comment on above: Performed By: #### 7 [id number] ####[facility] [address] [place] [address] Lipid Panelon 08-31-2023 Cholesterol [Mass/Vol] 155 mg/dL Normal 120-200 [facility] Comment on above: Performed By: #### 2 001372, 2916607, 9397895, 9077196, 62767778 ####[facility] [address] [place] [address] Cholesterol in HDL [Mass/Vol] 31 mg/dL Invalid Interpretation Code [facility] Comment on above: Result Comment: '>= 60 LOW RISK' '<= 40 HIGH RISK' Performed By: #### 2 445755, 4387795, 0110260, 5654059, 26738436 ####[facility] [address] [place] [address] Cholesterol in LDL [Mass/Vol] 105 mg/dL Normal <=129 [facility] Comment on above: Performed By: #### 2 195764, 0092175, 0486620, 4355191, 83088575 ####[facility] [address] [place] [address] Cholesterol in VLDL [Mass/Vol] 53 mg/dL High 7-40 [facility] Comment on above: Performed By: #### 2 280736, 6138796, 8292391, 2379721, 64803800 ####[facility] [address] [place] [address] Triglyceride [Mass/Vol] 265 mg/dL High <=149 [facility] Comment on above: Performed By: #### 2 456553, 4997108, 8710203, 2174112, 46188693 ####[place] [address] [place] [address] Physician Orderon 08-31-2023 Physician Order [id number] AB#1.00TIFF Normal [facility] TSHon 08-31-2023 TSH Qn 1.56 m[IU]/L Normal 0.34-5.60 [facility] Comment on above: Performed By: #### 2 690530, 7327893, 2280366, 5657044, 22703590 ####[facility] [address] [place] [address] eGFRon 08-31-2023 eGFR 95 mL/min/1.73 m2 Normal >=59 [facility] Comment on above: Order Comment: Order added by Discern Expert. Performed By: #### 2 004235, 0058261, 2265813, 0106600, 35960337 ####[facility] [address] [place] [address] Ambulatory Visit Summaryon 0 08-17-2023 Ambulatory Visit Summary VALERIE KAMARA :1980 Visit Date:08/17/2023 Ambulatory Visit Instructions Your Diagnosis BMI 40.0-44.9, adult Smoker Affective bipolar disorder Depression, major, recurrent, moderate Your Care Team Attending Physician - Izzy Porras Primary Care Physician - Izzy Porras This Is Your Medications List atorvastatin (atorvastatin 40 mg Tab) buPROPion (buPROPion 150 mg/24 hours XL Tab) clopidogrel (Plavix 75 mg Tab) escitalopram (escitalopram 10 mg Tab) escitalopram (escitalopram 20 mg Tab) lorazepam (LORazepam 0.5 mg Tab) rimegepant (Nurtec ODT 75 mg oral tablet, disintegrating) Procedures Performed Surgery (12/2022), Hysterectomy (01/23/2021), delivery (04/15/2020), delivery (12/22/2015), Cholecystectomy (04/25/2006), section (12/14/2004). Discharge Vitals Heart Rate (Peripheral) 80 Respiratory Rate 18 Blood Pressure 128/78 Height 152.6 cm Height 60 in Weight 97.8 kg Weight 215.16 lb BMI 42 What to do next Scheduled Follow-Up Appointments Tuesday. 2023 8:20 AM EDT With: Izzy Porras Where: [facility] Copen Normal [facility] Ambulatory Visit Summary VALERIE KAMARA :1980 Visit Date:08/17/2023 Ambulatory Visit Instructions Your Diagnosis BMI 40.0-44.9, adult Smoker Affective bipolar disorder Depression, major, recurrent, moderate Your Care Team Attending Physician - Izzy Porras Primary Care Physician - Izzy Porras This Is Your Medications List atorvastatin (atorvastatin 40 mg Tab) buPROPion (buPROPion 150 mg/24 hours XL Tab) clopidogrel (Plavix 75 mg Tab) escitalopram (escitalopram 10 mg Tab) escitalopram (escitalopram 20 mg Tab) lorazepam (LORazepam 0.5 mg Tab) rimegepant (Nurtec ODT 75 mg oral tablet, disintegrating) Procedures Performed Surgery (12/2022), Hysterectomy (01/23/2021), delivery (04/15/2020), delivery (12/22/2015), Cholecystectomy (04/25/2006), section (12/14/2004). Discharge Vitals Heart Rate (Peripheral) 80 Respiratory Rate 18 Blood Pressure 128/78 Height 152.6 cm Height 60 in Weight 97.8 kg Weight 215.16 lb BMI 42 What to do next Scheduled Follow-Up Appointments Tuesday. 2023 8:20 AM EDT With: Izzy Porras Where: [facility] Family Medicine Shanell Normal [facility] Family Medicine Office/Clini c Noteon 08-17-2023 Family Medicine Office/Clinic Note HPI Staff Valerie is a 43 year old female presenting for FMLA paperwork 02/11/23 GENE 11 Follow up for Mental Status: Medication adherence- Yes, takes medication as prescribed Medication refill needed: _ Suicidal thoughts-Not at this time Most recent GENE: 9 Most recent PHQ: n/a bipolar Pt is here today to have fmla paperwork for her on days that patient is having mental break downs is needed to be a home to help patient. History of Present Illness pt presents today for follow up on anxiety, depression and bipolar disorder. Physical Exam Vitals & Measurements HR: 80(Peripheral) RR: 18 BP: 128/78 HT: 60 in HT: 152.6 cm WT: 97.8 kg WT: 215.16 lb BMI: 42 General: alert, no acute distress ENMT: oral mucosa moist, no pharyngeal erythema or exudate Cardiovascular: regular rate and rhythm, normal peripheral perfusion Respiratory: Lungs CTA, respirations non labored Extremities: no deformity, no trauma Neurological: oriented x 4, LOC appropriate for age, CN II-XII intact, motor strength equal & normal bilaterally, speech normal Assessment/Plan 1. Affective bipolar disorder (F31.9: Bipolar disorder, unspecified) pt not feeling too bad today. will keep medication doses the same at this time. if symptoms start to worsen may consider increasing doses or adding a different medication. will complete FMLA paper work for her . when she has flare ups he has to stay home to help her and take care of children. all questions answered. RTC for wellness visit 2 weeks. 2. Depression, major, recurrent, moderate (F33.1: Major depressive disorder, recurrent, moderate) does not need refills at this time 3. Insomnia (G47.00: Insomnia, unspecified) pt struggling with insomnia. fell asleep this morning at 4:30 and back up at 6:30. 4. Smoker (F17.200: Nicotine dependence, unspecified, uncomplicated) consider not smoking 5. BMI 40.0-44.9, adult (Z68.41: Body mass index [BMI] 40.0-44.9, adult) BMI education complete Orders: fluconazole, 150 mg = 1 tab(s), Oral, Once, take one on day 1 and one on day 4, # 2 tab(s), Refills(s) 1, Pharmacy: [facility]/pharmacy #[id number], 152.6, cm, 06/07/23 10:13:00 EST, Height/Length Dosing, 95.3, kg, 06/07/23 10:13:00 EST, Weight Dosing Follow-up No qualifying data available Problem List/Past Medical History Ongoing Affective bipolar disorder Bilateral otitis media Cough Depression, major, recurrent, moderate Establishing care with new doctor, encounter for Insomnia Morbid obesity with BMI of 40.0-44.9, adult Sinusitis Historical No qualifying data Procedure/Surgical History Surgery (12/2022), Hysterectomy (01/23/2021), delivery (04/15/2020), delivery (12/22/2015), Cholecystectomy (04/25/2006), section (12/14/2004). Medications atorvastatin 40 mg Tab, 40 mg= 1 tab(s), Oral, Daily buPROPion 150 mg/24 hours XL Tab, 150 mg= 1 tab(s), Oral, Daily escitalopram 10 mg Tab, 10 mg= 1 tab(s), Oral, Daily escitalopram 20 mg Tab, 20 mg= 1 tab(s), Oral, Daily LORazepam 0.5 mg Tab, 0.5 mg= 1 tab(s), Oral, BID, PRN Nurtec ODT 75 mg oral tablet, disintegrating, 75 mg= 1 tab(s) Plavix 75 mg Tab, 75 mg= 1 tab(s), Oral, Daily Allergies Topamax (Anaphylaxis) aspirin protamine sulfa drugs (Anaphylaxis) Social History Tobacco - No Risk, 10/18/2022 10 or more cigarettes (1/2 pack or more)/day in last 30 days Tobacco Use:. Cigarettes, Ready to change: No. Household tobacco concerns: No. Yes, 08/17/2023 [facility] Comment on above: Result Comment: Elec tronically Signed By: Izzy Porras\.br\Date and Time Signed: 08/17/23 09:34 EDT Consultation Noteon 06-23-19 Consultation Note [id number] FD#1.00TIFF [facility] Consultation Noteon 06-22-19 Consultation Note [id number] 40#1.00TIFF [facility] Ambulatory Visit Summaryon 0 06-07-2023 Ambulatory Visit Summary ANH VALERIE Rivera :1980 Visit Date:06/07/2023 Ambulatory Visit Instructions Your Diagnosis BMI 40.0-44.9, adult Smoker Your Care Team Attending Physician - Izzy Porras Primary Care Physician - Izzy Porras This Is Your Medications List atorvastatin (atorvastatin 40 mg Tab) buPROPion (buPROPion 150 mg/24 hours XL Tab) clopidogrel (Plavix 75 mg Tab) escitalopram (escitalopram 10 mg Tab) escitalopram (escitalopram 20 mg Tab) lorazepam (LORazepam 0.5 mg Tab) Procedures Performed Surgery (12/2022), Hysterectomy (01/23/2021), delivery (04/15/2020), delivery (12/22/2015), Cholecystectomy (04/25/2006), section (12/14/2004). Discharge Vitals Heart Rate (Peripheral) 80 Respiratory Rate 18 Blood Pressure 130/88 Height 152.6 cm Height 60 in Weight 95.3 kg Weight 209.66 lb BMI 40.92 Medications What How Much When Instructions Unchanged atorvastatin (atorvastatin 40 mg Tab) 1 Tablets By Mouth Every day Unchanged buPROPion (buPROPion 150 mg/ 24 hours XL Tab) 1 Tablets By Mouth Every day Unchanged clopidogrel (Plavix 75 mg Tab) 1 Tablets By Mouth Every day Unchanged escitalopram (escitalopram 10 mg Tab) 1 Tablets By Mouth Every day Unchanged escitalopram (escitalopram 20 mg Tab) 1 Tablets By Mouth Every day Unchanged lorazepam (LORazepam 0.5 mg Tab) 1 Tablets By Mouth 2 times a day as needed for as needed for anxiety Allergies Topamax (Anaphylaxis) aspirin protamine sulfa drugs (Anaphylaxis) Problems Ongoing - Any problem that you are currently receiving treatment for. Affective bipolar disorder Bilateral otitis media Cough Depression, major, recurrent, moderate Establishing care with new doctor, encounter for Morbid obesity with BMI of 40.0-44.9, adult Sinusitis Patient Survey You may receive a survey via text or e-mail asking about your office visit. Please share your experience with us by completing your survey. We appreciate your feedback and thank you for choosing us for your care. Esther [facility] Family Medicine Office/Clini c Noteon 06-07-2023 Family Medicine Office/Clinic Note HPI Staff Valerie is a 43 year old female presenting for acute sick visit Respiratory C/O: Onset: 9 days Body aches: no Chest congestion: yes denies any heaviness Chills: no Cough: yes Sputum production: yes clear Sore throat: no Ear complaints: yes right ear sore, left ear little sore Eye itching/watering: no Fever: no Headache: no Nasal congestion: yes Nasal discharge: yes Poor appetite: no Reduced activity: no Sinus pain/pressure: no Sneezing: no Wheezing: yes Ill contacts: yes Remedies tried: nyquil, Tylenol cold and flu, Tessalon pearls Questions/Concerns: started with nasal discharge, sore throat and then cough started having post nasal drip History of Present Illness pt presents today with URI symptoms cough worsening Review of Systems PHQ Score Initial Depression Screen Score: 0 SCORE ROS - Provider Constitutional: no fever, no chills, no sweats, no fatigue Respiratory: no shortness of breath, yes cough, no orthopnea, no wheezing. nasal congestion, right ear pain Cardiovascular: no chest pain, no palpitations, no edema. Neurologic: no headache, no dizziness, no numbness, no weakness. Physical Exam Vitals & Measurements HR: 80(Peripheral) RR: 18 BP: 130/88 SpO2: 98% HT: 60 in HT: 152.6 cm WT: 95.3 kg WT: 209.66 lb BMI: 40.92 General: alert, no acute distress ENMT: oral mucosa moist, no pharyngeal erythema or exudate, severe cough, right TM full of fluid, sunus tenderness Cardiovascular: regular rate and rhythm, normal peripheral perfusion Respiratory: Lungs CTA, respirations non labored Extremities: no deformity, no trauma Neurological: oriented x 4, LOC appropriate for age, CN II-XII intact, motor strength equal & normal bilaterally, speech normal Assessment/Plan 1. Sinusitis (J32.9: Chronic sinusitis, unspecified) tinus tendermess, nasal congestion, right ear pain. Ordered: azithromycin, = 1 packet(s), Oral, As Directed, as directed on package labeling, X 5 day(s), # 6 tab(s), Refills(s) 0, Pharmacy: [facility]/pharmacy #[id number], 152.6, cm, 06/07/23 10:13:00 EST, Height/Length Dosing, 95.3, kg, 06/07/23 10:13:00 EST, Weight Dosing benzonatate, 200 mg = 1 cap(s), Oral, TID, X 7 day(s), # 21 cap(s), Refills(s) 0, Pharmacy: [facility]/pharmacy #[id number], 152.6, cm, 06/07/23 10:13:00 EST, Height/Length Dosing, 95.3, kg, 06/07/23 10:13:00 EST, Weight Dosing methylPREDNISolone, = 1 packet(s), Oral, As Directed, as directed on package labeling, X 6 day(s), # 21 tab(s), Refills(s) 0, Pharmacy: [facility]/pharmacy #[id number], 152.6, cm, 06/07/23 10:13:00 EST, Height/Length Dosing, 95.3, kg, 06/07/23 10:13:00 EST, Weight Dosing 2. Cough (R05.9: Cough, unspecified) cough worsening since getting sick 9 days ago. will order tessalon pearls and medrol dose pack Ordered: azithromycin, = 1 packet(s), Oral, As Directed, as directed on package labeling, X 5 day(s), # 6 tab(s), Refills(s) 0, Pharmacy: [facility]/pharmacy #[id number], 152.6, cm, 06/07/23 10:13:00 EST, Height/Length Dosing, 95.3, kg, 06/07/23 10:13:00 EST, Weight Dosing benzonatate, 200 mg = 1 cap(s), Oral, TID, X 7 day(s), # 21 cap(s), Refills(s) 0, [id number] 152.6, cm, 06/07/23 10:13:00 EST, Height/Length Dosing, 95.3, kg, 06/07/23 10:13:00 EST, Weight Dosing methylPREDNISolone, = 1 packet(s), Oral, As Directed, as directed on package labeling, X 6 day(s), # 21 tab(s), Refills(s) 0, [id number], 152.6, cm, 06/07/23 10:13:00 EST, Height/Length Dosing, 95.3, kg, 06/07/23 10:13:00 EST, Weight Dosing 3. BMI 40.0-44.9, adult (Z68.41: Body mass index [BMI] 40.0-44.9, adult) BMI education complete Ordered: azithromycin, = 1 packet(s), Oral, As Directed, as directed on package labeling, X 5 day(s), # 6 tab(s), Refills(s) 0, [id number], 152.6, cm, 06/07/23 10:13:00 EST, Height/Length Dosing, 95.3, kg, 06/07/23 10:13:00 EST, Weight Dosing benzonatate, 200 mg = 1 cap(s), Oral, TID, X 7 day(s), # 21 cap(s), Refills(s) 0, [id number], 152.6, cm, 06/07/23 10:13:00 EST, Height/Length Dosing, 95.3, kg, 06/07/23 10:13:00 EST, Weight Dosing methylPREDNISolone, = 1 packet(s), Oral, As Directed, as directed on package labeling, X 6 day(s), # 21 tab(s), Refills(s) 0, [id number], 152.6, cm, 06/07/23 10:13:00 EST, Height/Length Dosing, 95.3, kg, 06/07/23 10:13:00 EST, Weight Dosing 4. Smoker (F17.200: Nicotine dependence, unspecified, uncomplicated) consider not smoking Ordered: azithromycin, = 1 packet(s), Oral, As Directed, as directed on package labeling, X 5 day(s), # 6 tab(s), Refills(s) 0, [id number], 152.6, cm, 06/07/23 10:13:00 EST, Height/Length Dosing, 95.3, kg, 06/07/23 10:13:00 EST, Weight Dosing benzonatate, 200 mg = 1 cap(s), Oral, TID, X 7 day(s), # 21 cap(s), Refills(s) 0, [id number], 152.6, cm, 06/07/23 10:13:00 EST, Height/Length Dosing, 95.3, kg, 06/07/23 10:13:00 EST, Weight Dosing methylPREDNISolone, = 1 packet(s), Oral, As Directed, (more content not included)... Normal [facility] Comment on above: Result Comment: Elec tronically Signed By: Izzy Porras\.br\Date and Time Signed: 06/07/23 11:11 EST COVID Quick Testingon 2022 Result Negative TagSeats Other CBC AUTO DIFFon 09-16-2022 BASO # 0.0 103/ul Normal 0.0-0.1 [facility] Comment on above: Performed By: #### C BC ####[facility] [address] [place], [place] [address]KqRachelle Regan Basophils/100 WBC (Bld) 0.5 % Normal 0.2-2.0 [facility] Comment on above: Performed By: #### C BC ####[facility] [address] [place], [place] [address]FjRachelle Regan EO # 0.1 103/ul Normal 0.0-0.7 [facility] Comment on above: Performed By: #### C BC ####[facility] [address] [place] [address]Dr. Owen Regan Eosinophils/100 WBC (Bld) 1.5 % Normal 0.9-7.0 [facility] Comment on above: Performed By: #### C BC ####[facility] [address] [place], [place] [address]Dr. Owen Regan Erythrocyte distribution width (RBC) [Ratio] 13.6 % Normal 11.0-15.0 [facility] Comment on above: Performed By: #### C BC ####[facility] [address] [place], [place] [address]Dr. Owen Regan Hematocrit (Bld) [Volume fraction] 42.7 % Normal 36.0-48.0 [facility] Comment on above: Performed By: #### C BC ####[facility] [address] [place], [place] [address]Dr. Owen Regan Hemoglobin (Bld) [Mass/Vol] 14.1 g/dL Normal 12.0-16.0 [facility] Comment on above: Performed By: #### C BC ####[facility] [address] [place], [place] [address]Dr. Owen Regan IG # 0.02 10e3/ul Normal 0.00-0.03 [facility] Comment on above: Performed By: #### C BC ####[facility] [address] [place], [place] [address]Dr. Owen Regan IG % 0.2 % Normal 0.0-0.5 [facility] Comment on above: Performed By: #### C BC ####[facility] [address] [place], [place] [address]Dr. Owen Regan LYMPH # 2.3 103/ul Normal 1.2-3.8 [facility] Comment on above: Performed By: #### C BC ####[facility] [address] [place], [place] [address]Dr. Owen Regan Lymphocytes/100 WBC (Bld) 26.5 % Normal 20.5-60.0 [facility] Comment on above: Performed By: #### C BC ####[facility] [address] [place] [address]Dr. Owen Regan MANUAL DIFF REQ NO Normal [facility] Comment on above: Performed By: #### C BC ####[facility] [address] [place] [id number]. Owen Regan MCH (RBC) [Entitic mass] 30.9 pg Normal 26.7-34.0 [facility] Comment on above: Performed By: #### C BC ####[facility] [address] [place] [address]Dr. Owen Regan MCHC (RBC) [Mass/Vol] 33.0 g/dL Normal 29.9-35.2 [facility] Comment on above: Performed By: #### C BC ####[facility] [address] [place], [place] [address]Dr. Owen Regan MCV (RBC) [Entitic vol] 93.6 fL Normal 81.0-99.0 [facility] Comment on above: Performed By: #### C BC ####[facility] [address] [place], [place] [address]Dr. Owen Regan MONO # 0.5 103/ul Normal 0.3-0.8 [facility] Comment on above: Performed By: #### C BC ####[facility] [address] [place], [place] [address]Dr. Owen Regan Monocytes/100 WBC (Bld) 5.2 % Normal 1.7-12.0 [facility] Comment on above: Performed By: #### C BC ####[facility] [address] [place], [place] [address]DrRachelle Regan NEUT # 5.8 103/ul Normal 1.4-6.5 [facility] Comment on above: Performed By: #### C BC ####[facility] [address] [place], [place] [address]DrRachelle Regan Neutrophils/100 WBC (Bld) 66.1 % Normal 43.0-75.0 [facility] Comment on above: Performed By: #### C BC ####[facility] [address] [place], [place] [address]Eh. Owen Regan Platelet mean volume (Bld) [Entitic vol] 9.9 fL Normal 9.5-13.5 [facility] Comment on above: Performed By: #### C BC ####[facility] [address] [place], [place] [address]Yk. Owen Regan PLT 192 103/ul Normal 150-450 [facility] Comment on above: Performed By: #### C BC ####[facility] [address] [place], [place] [address]Ee. Owen Regan RBC 4.56 106/ul Normal 4.20-5.40 [facility] Comment on above: Performed By: #### C BC ####[facility] [address] [place], [place] [address]Ax. Owen Regan WBC 8.8 103/ul Normal 4.0-11.0 [facility] Comment on above: Performed By: #### C BC ####[facility] [address] [place], [place] [address]Zm. Owen Regan CT STROKE HEAD WOon 09-17-19 CT STROKE HEAD WO EXAMINATION: CT STROKE HEAD WO, 09/16/2022 8:23 AM EDT HISTORY: Cerebrovascular accident COMPARISON: None. TECHNIQUE: CT scan of the head was performed without IV contrast. CT dose reduction technique was used, including Automated Exposure Control. FINDINGS: BRAIN: 3.4 x 2 cm area of hypodensity in the left temporal lobe with loss of palma-white differentiation best seen on axial images 8 through 10 suspicious for nonhemorrhagic infarct. Bilateral frontal lobe cortical thinning/poor palma-white differentiation however this is symmetric. No areas of parenchymal hemorrhage or mass CSF SPACES: No hydrocephalus, subarachnoid hemorrhage, or mass. Appropriate for age. SKULL: No fracture, mass, or other significant visible lesion. SINUSES: No significant mucosal thickening or fluid on the limited views. ORBITS: No appreciable abnormality on the limited views. OTHER: Findings discussed with Dr. 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 MRI follow-up is recommended Electronically authenticated by: MANPREET MACIEL Date: 2022-09-16 08:49 Normal [facility] CTA NECK WO W CONon 09-17-19 23 CTA NECK WO W CON EXAMINATION: CTA HEAD WO W CON, CTA NECK WO W CON HISTORY: Cerebrovascular accident COMPARISON: CT head 09/16/2022 TECHNIQUE: Axial, Coronal, and Sagittal CT images with IV contrast. Multi-planar/3-D imaging to optimize visualization of vascular anatomy. Percent stenosis is based on NASCET criteria. Dose reduction techniques were achieved by using automated exposure control and/or adjustment of mA and/or kV according to patient size and/or use of iterative reconstruction technique. FINDINGS: HEAD: VASCULATURE: No significant stenosis. No visible aneurysm or vascular malformation. VENTRICLES: No enlargement or displacement. CEREBRUM: No excessive atrophy, mass, hemorrhage, or abnormal enhancement. CEREBELLUM: No excessive atrophy, mass, hemorrhage, or abnormal enhancement. BRAINSTEM: No excessive atrophy, mass, hemorrhage, or abnormal enhancement. BASAL CISTERNS: No subarachnoid hemorrhage or effacement. SKULL: Negative. NECK: RIGHT INTERNAL CAROTID: No hemodynamically significant stenosis or dissection. EXTERNAL CAROTID: No hemodynamically significant stenosis or dissection. COMMON CAROTID: No hemodynamically significant stenosis or dissection. VERTEBRAL: No hemodynamically significant stenosis or dissection. LEFT INTERNAL CAROTID: No hemodynamically significant stenosis or dissection. EXTERNAL CAROTID: No hemodynamically significant stenosis or dissection. COMMON CAROTID: No hemodynamically significant stenosis or dissection. VERTEBRAL: No hemodynamically significant stenosis or dissection. OTHER: The visualized soft tissues of the neck are also unremarkable. IMPRESSION: 1. Normal CT angiography of the head and neck. Electronically authenticated by: CRAIG GONSALES Date: 2022-09-16 09:38 Normal [facility] PROF CHEM 8 (BAS METB)on Anion gap [Moles/Vol] 12.7 mmol/L Normal [facility] Comment on above: Performed By: #### B MP ####[facility] [address] [place], [place] [address]ZqRachelle Owen Jass Calcium [Mass/Vol] 8.6 mg/dL Normal 8.5-10.1 [facility] Comment on above: Performed By: #### B MP ####[facility] [address] [place] [address]Dr. Katelinmerle Jass Chloride [Moles/Vol] 106 mmol/L Normal 98-107 [facility] Comment on above: Performed By: #### B MP ####[facility] [address] [place], [place] [address]Dr. Katelinmerle Jass CO2 [Moles/Vol] 24.7 mmol/L Normal 21.0-32.0 [facility] Comment on above: Performed By: #### B MP ####[facility] [address] [place], [place] [address]Dr. Owen Regan Creatinine [Mass/Vol] 0.88 mg/dL Normal 0.55-1.02 [facility] Comment on above: Performed By: #### B MP ####[facility] [address] [place], [place] [address]Dr. Owen Regan EGFR-AF NORWEGIAN >60 Normal >=60 [facility] Comment on above: Performed By: #### B MP ####[facility] [address] [place], [place] [address]Dr. Owen Regan EGFR-NON AF NORWEGIAN >60 Normal >=60 [facility] Comment on above: Performed By: #### B MP ####[facility] [address] [place], [place] [address]Dr. Owen Regan Glucose [Mass/Vol] 103 mg/dL Normal 74-106 [facility] Comment on above: Performed By: #### B MP ####[facility] [address] [place], [place] [address]Dr. Owen Regan Potassium [Moles/Vol] 4.4 mmol/L Normal 3.5-5.1 [facility] Comment on above: Performed By: #### B MP ####[facility] [address] [place], [place] [address]Dr. Owen Regan Sodium [Moles/Vol] 139 mmol/L Normal 136-145 [facility] Comment on above: Performed By: #### B MP ####[facility] [address] [place], [place] [address]Dr. Owen Regan Urea nitrogen [Mass/Vol] 8.0 mg/dL Normal 7.0-18.0 [facility] Comment on above: Performed By: #### B MP ####[facility] [address] [place] [address]Dr. Owen Regan Urea nitrogen/Creatinine [Mass ratio] 9.1 mg/mg Normal [facility] Comment on above: Performed By: #### B MP ####[facility] [address] [place] [id number]. Owen Regan PROTIMEon 09-16-2022 INR Coag (PPP) [Relative time] 0.93 {INR} Normal [facility] Comment on above: Performed By: #### P T, PTT #### [facility] [address] [place] [address] [address] Owen Regan INR GUIDELINES SEE BELOW Normal [facility] Comment on above: Result Comment: KATHY RED INR: 2.0 - 3.0 CONDITIONS NOT LISTED BELOW 2.5 - 3.5 FOR PROSTHETIC HEART VALVE REPLACEMENT 2.5 - 3.5 RECURRENT THROMBOSIS Performed By: #### P T, PTT #### [facility] [address] [place] [address] [address] Owen Regan PT Coag (PPP) [Time] 9.9 s Normal 9.0-11.6 [facility] Comment on above: Performed By: #### P T, PTT #### [facility] [address] [place] [address] [address] Owen Regan PTTon 09-16-2022 aPTT Coag (Bld) [Time] 29.2 s Normal 22.3-36.2 Th [facility] Comment on above: Performed By: #### P T, PTT ####[facility] [address] [place] [address]Dr. Owen Regan XR CHEST 1 Von 09-16-2022 XR CHEST 1 V EXAM: XR CHEST 1 V HISTORY: Cerebrovascular accident COMPARISON: Multiple prior examinations including 06/29/2022. TECHNIQUE: Chest X-ray, 1 view. FINDINGS: Support devices: None. Lungs/pleura: Low volumes accentuate the lung markings. No definite consolidation, effusion, or pneumothorax. Relatively confluent opacities overlying the lung bases have appearance most suggestive of summation shadow of overlying soft tissues; no definite infiltrate. Heart and mediastinum: Stable contours compared to prior examination. Bones: No acute abnormality identified. IMPRESSION: Low lung volumes accentuate the lung markings; no definite active disease. Electronically authenticated by: JASON MERINO Date: 2022-09-16 08:42 Normal [facility] CBC AUTO DIFFon 07-29-2022 BASO # 0.0 103/ul Normal 0.0-0.1 [facility] Comment on above: Performed By: #### C BC #### [facility] [address] [place] [address] [address] Owen Regan Basophils/100 WBC (Bld) 0.3 % Normal 0.2-2.0 [facility] Comment on above: Performed By: #### C BC #### [facility] [address] [place] [address] [address] Owen Regan EO # 0.2 103/ul Normal 0.0-0.7 [facility] Comment on above: Performed By: #### C BC #### [facility] [address] [place] [address] [address] Owen Regan Eosinophils/100 WBC (Bld) 2.6 % Normal 0.9-7.0 [facility] Comment on above: Performed By: #### C BC #### [facility] [address] [place] [address] [address] Owen Regan Erythrocyte distribution width (RBC) [Ratio] 13.2 % Normal 11.0-15.0 [facility] Comment on above: Performed By: #### C BC #### [facility] [address] [address] [address] Owen Regan Hematocrit (Bld) [Volume fraction] 39.5 % Normal 36.0-48.0 [facility] Comment on above: Performed By: #### C BC #### [facility] [address] [address] [address] Owen Regan Hemoglobin (Bld) [Mass/Vol] 13.5 g/dL Normal 12.0-16.0 [facility] Comment on above: Performed By: #### C BC #### [facility] [address] [place] [address] Dr. Owen Regan IG # 0.05 10e3/ul Critically high 0.00-0.03 [facility] Comment on above: Performed By: #### C BC #### [facility] [address] [place] [address] Dr. Owen Regan IG % 0.5 % Normal 0.0-0.5 [facility] Comment on above: Performed By: #### C BC #### [facility] [address] [place] [address] Dr. Owen Regan LYMPH # 2.9 103/ul Normal 1.2-3.8 [facility] Comment on above: Performed By: #### C BC #### [facility] [address] [place] [address] Dr. Owen Regan Lymphocytes/100 WBC (Bld) 31.3 % Normal 20.5-60.0 [facility] Comment on above: Performed By: #### C BC #### [facility] [address] [place] [address] Dr. Owen Regan MANUAL DIFF REQ NO Normal [facility] Comment on above: Performed By: #### C BC #### [facility] [address] [place] [address] Dr. Owen Regan MCH (RBC) [Entitic mass] 31.3 pg Normal 26.7-34.0 [facility] Comment on above: Performed By: #### C BC #### [facility] [address] [place] [address] Dr. Owen Regan MCHC (RBC) [Mass/Vol] 34.2 g/dL Normal 29.9-35.2 [facility] Comment on above: Performed By: #### C BC #### [facility] [address] [place] [address] Dr. Owen Regan MCV (RBC) [Entitic vol] 91.4 fL Normal 81.0-99.0 [facility] Comment on above: Performed By: #### C BC #### [facility] [address] [place] [address] Dr. Owen Regan MONO # 0.5 103/ul Normal 0.3-0.8 [facility] Comment on above: Performed By: #### C BC #### [facility] [address] [place] [address] Dr. Owen Regan Monocytes/100 WBC (Bld) 5.0 % Normal 1.7-12.0 [facility] Comment on above: Performed By: #### C BC #### [facility] [address] [place] [address] Dr. Owen Regan NEUT # 5.6 103/ul Normal 1.4-6.5 [facility] Comment on above: Performed By: #### C BC #### [facility] [address] [place] [address] Dr. Owen Regan Neutrophils/100 WBC (Bld) 60.3 % Normal 43.0-75.0 [facility] Comment on above: Performed By: #### C BC #### [facility] [address] [place] [address] Dr. Owen Regan Platelet mean volume (Bld) [Entitic vol] 9.9 fL Normal 9.5-13.5 [facility] Comment on above: Performed By: #### C BC #### [facility] [address] [place] [address] Dr. Owen Regan PLT 198 103/ul Normal 150-450 [facility] Comment on above: Performed By: #### C BC #### [facility] [address] [place] [address] Dr. Owen Regan RBC 4.32 106/ul Normal 4.20-5.40 [facility] Comment on above: Performed By: #### C BC #### [facility] [address] [place] [address] Dr. Owen Regan WBC 9.3 103/ul Normal 4.0-11.0 [facility] Comment on above: Performed By: #### C BC #### [facility] [address] [place] [address] Dr. Owen Regan GLYCOHEMOGLOBIN A1Con 2022 ADA RECOMMENDATION SEE BELOW Normal [facility] Comment on above: Result Comment: ADA RECOMMENDED LIMIT 4.0 - 6.0 ADA THERAPEUTIC TARGET < 7.0 ACTION SUGGESTED > 7.0 Performed By: #### A 1C ####[facility] [address] [address]Dr. Owen Regan Glucose [Mass/Vol] 117 mg/dL Normal [facility] Comment on above: Performed By: #### A 1C ####[facility] [address] [address]Dr. Owen Regan HbA1c (Bld) [Mass fraction] 5.7 % Normal 4.5-6.2 [facility] Comment on above: Performed By: #### A 1C ####[facility] [address] [address]Dr. Owen Regan LIPID PROFILEon 07-29-2022 CHOL-HDL RATIO NORM SEE BELOW Normal [facility] Comment on above: Result Comment: 3.3 - 4.4 LOW RISK 4.4 - 7.1 AVERAGE RISK 7.1 - 11.0 MODERATE RISK >11.0 HIGH RISK Performed By: #### T SH, T4, CMP, LIPID ####[facility] [address] [address]Dr. Owen Regan Cholesterol [Mass/Vol] 145 mg/dL Normal <=200 [facility] Comment on above: Performed By: #### T SH, T4, CMP, LIPID ####[facility] [address] [address]Dr. Owen Regan Cholesterol in HDL [Mass/Vol] 34 mg/dL Critically low 40-60 [facility] Comment on above: Performed By: #### T SH, T4, CMP, LIPID ####[facility] [address] [address]Dr. Owen Regan Cholesterol in LDL [Mass/Vol] 83.0 mg/dL Normal [facility] Comment on above: Performed By: #### T SH, T4, CMP, LIPID ####[facility] [address] [address]Dr. Owen Regan Cholesterol.total/Chol esterol in HDL [Mass ratio] 4.3 {ratio} Normal [facility] Comment on above: Performed By: #### T SH, T4, CMP, LIPID ####[facility] [address] [address]Dr. Owen Regan HDL NORMAL > or = 60 mg/dl - LOW CARDIOVASCULAR RISK <40 mg/dl - HIGH CARDIOVASCULAR RISK Normal [facility] Comment on above: Performed By: #### T SH, T4, CMP, LIPID ####[facility] [address] [address]Dr. Owen Regan LDL CALC NORMAL SEE BELOW Normal [facility] Comment on above: Result Comment: <100 mg/dl OPTIMAL 100 - 129 mg/dl NEAR OR ABOVE OPTIMAL 130 - 159 mg/dl BORDERLINE HIGH 160 - 189 mg/dl HIGH >190 mg/dl VERY HIGH Performed By: #### T SH, T4, CMP, LIPID ####[facility] [address] [address]Dr. Owen Regan Triglyceride [Mass/Vol] 140 mg/dL Normal <=150 [facility] Comment on above: Performed By: #### T SH, T4, CMP, LIPID ####[facility] [address] [address]Dr. Owen Regan VLDL CALC 28.0 mg/dL Normal [facility] Comment on above: Performed By: #### T SH, T4, CMP, LIPID ####[facility] [address] [address]Dr. Owen Regan PROF 14(COMP METB)on 023 Albumin [Mass/Vol] 3.6 g/dL Normal 3.4-5.0 [facility] Comment on above: Performed By: #### T SH, T4, CMP, LIPID ####[facility] [address] [address]Dr. Owen Regan Albumin/Globulin [Mass ratio] 1.1 {ratio} Normal [facility] Comment on above: Performed By: #### T SH, T4, CMP, LIPID ####[facility] [address] [address]Dr. Owen Regan ALP [Catalytic activity/Vol] 81 U/L Normal 46-116 [facility] Comment on above: Performed By: #### T SH, T4, CMP, LIPID ####[facility] [address] [address]Dr. Owen Regan ALT [Catalytic activity/Vol] 37 U/L Normal 14-59 [facility] Comment on above: Performed By: #### T SH, T4, CMP, LIPID ####[facility] [address] [address]Dr. Owen Regan Anion gap [Moles/Vol] 10.2 mmol/L Normal [facility] Comment on above: Performed By: #### T SH, T4, CMP, LIPID ####[facility] [address] [address]Dr. Owen Regan AST [Catalytic activity/Vol] 14 U/L Critically low 15-37 [facility] Comment on above: Performed By: #### T SH, T4, CMP, LIPID ####[facility] [address] [address]Dr. Owen Regan Bilirubin [Mass/Vol] 0.2 mg/dL Normal 0.2-1.0 [facility] Comment on above: Performed By: #### T SH, T4, CMP, LIPID ####[facility] [address] [address]Dr. Owen Regan Calcium [Mass/Vol] 8.8 mg/dL Normal 8.5-10.1 [facility] Comment on above: Performed By: #### T SH, T4, CMP, LIPID ####[facility] [address] [address]Dr. Owen Regan Chloride [Moles/Vol] 104 mmol/L Normal 98-107 [facility] Comment on above: Performed By: #### T SH, T4, CMP, LIPID ####[facility] [address] [address]Dr. Owen Regan CO2 [Moles/Vol] 27.8 mmol/L Normal 21.0-32.0 [facility] Comment on above: Performed By: #### T SH, T4, CMP, LIPID ####[facility] [address] [address]Dr. Owen Regan Creatinine [Mass/Vol] 0.77 mg/dL Normal 0.55-1.02 [facility] Comment on above: Performed By: #### T SH, T4, CMP, LIPID ####[facility] [address] [address]Dr. Owen Jass EGFR-AF NORWEGIAN >60 Normal >=60 [facility] Comment on above: Performed By: #### T SH, T4, CMP, LIPID ####[facility] [address] [address]Dr. Owen Regan EGFR-NON AF NORWEGIAN >60 Normal >=60 [facility] Comment on above: Performed By: #### T SH, T4, CMP, LIPID ####[facility] [address] [place], [place] [address]Dr. Owen Regan Globulin (S) [Mass/Vol] 3.3 g/dL Normal [facility] Comment on above: Performed By: #### T SH, T4, CMP, LIPID ####[facility] [address] [address]Dr. Owen Regan Glucose [Mass/Vol] 104 mg/dL Normal 74-106 [facility] Comment on above: Performed By: #### T SH, T4, CMP, LIPID ####[facility] [address] [address]Dr. Owen Regan Potassium [Moles/Vol] 4.0 mmol/L Normal 3.5-5.1 [facility] Comment on above: Performed By: #### T SH, T4, CMP, LIPID ####[facility] [address] [address]Dr. Owen Regan Protein [Mass/Vol] 6.9 g/dL Normal 6.4-8.2 [facility] Comment on above: Performed By: #### T SH, T4, CMP, LIPID ####[facility] [address] [address]Dr. Owen Regan Sodium [Moles/Vol] 138 mmol/L Normal 136-145 [facility] Comment on above: Performed By: #### T SH, T4, CMP, LIPID ####[facility] [address] [address]Dr. Owen Regan Urea nitrogen [Mass/Vol] 10.0 mg/dL Normal 7.0-18.0 [facility] Comment on above: Performed By: #### T SH, T4, CMP, LIPID ####[facility] [address] [address]Dr. Owen Regan Urea nitrogen/Creatinine [Mass ratio] 13.0 mg/mg Normal [facility] Comment on above: Performed By: #### T SH, T4, CMP, LIPID ####[facility] [address] [address]Dr. Owen Regan T4on 07-29-2022 T4 [Mass/Vol] 9.60 ug/dL Normal 4.80-13.90 [facility] Comment on above: Performed By: #### T SH, T4, CMP, LIPID ####[facility] [address] [address]Dr. Owen Regan TSHon 07-29-2022 TSH 1.441 uIU/mL Normal 0.358-3.740 [facility] Comment on above: Performed By: #### T SH, T4, CMP, LIPID ####[facility] [address] [address]Dr. Owen Regan MG MAMM SCREEN 3D JOSE CADon 07-01-2022 MG MAMM SCREEN 3D JOSE CAD Patient: VALERIE KAMARA Exam Date: 07/01/2022 : 1980 Gender:F Ordering : DR MIKIE CARBAJAL D.O. Admission #: [id number] Family : Order #: [id number] CLICK HERE TO VIEW EXAM RADIOLOGY REPORT PROCEDURE: MAMMOGRAM SCREENING 3D BILATERAL CAD COMPARISON: None. INDICATIONS: Screening mammography Calculator Name NCI Breast Cancer Risk Assessment Tool 5 Year Breast Cancer Risk 0.50% Lifetime Breast Cancer Risk 9.00% Personal Breast Cancer No Personal Ovarian Cancer No Treatments None Family Cancers None LOCATION: [facility] BREAST COMPOSITION: Extremely dense, which lowers the sensitivity of mammography. FINDINGS: DIAGNOSTIC CATEGORY 1--NEGATIVE. RIGHT BREAST: No significant suspicious finding. LEFT BREAST: No significant suspicious finding. RECOMMENDATIONS: ROUTINE MAMMOGRAM AND CLINICAL EVALUATION IN 12 MONTHS. PLEASE NOTE: A NORMAL MAMMOGRAM DOES NOT EXCLUDE THE POSSIBILITY OF BREAST CANCER. A CLINICALLY SUSPICIOUS PALPABLE LUMP SHOULD BE BIOPSIED. Dictated by: Craig Gonsales M.D. on 07/02/2022 at 07:53 Approved by: Craig Gonsales M.D. on 07/02/2022 at 07:56 Normal [facility] BNPon 06-29-2022 Natriuretic peptide B (Bld) [Mass/Vol] 41.0 pg/mL Normal <=450.0 [facility] Comment on above: Performed By: #### C MADM, CMP, BNP #### [facility] [address] [place] [address] Dr. Owen Regan CARDIAC DEDE ADMITon 023 CK [Catalytic activity/Vol] 90 U/L Normal 26-192 [facility] Comment on above: Performed By: #### C MADM, CMP, BNP #### [facility] [address] [place] [address] Dr. Owen Regan CK.MB [Mass/Vol] 0.87 ng/mL Normal <=3.60 [facility] Comment on above: Performed By: #### C MADM, CMP, BNP #### [facility] [address] [place] [address] Dr. Owen Regan HSTROP <4.0 Normal 4.0-51.3 [facility] Comment on above: Result Comment: CUT- OFF POINTS HAVE BEEN ESTABLISHED BASED ON THE FOURTH UNIVERSAL DEFINITIONS OF MYOCARDIAL INFARCTION. THE UPPER REFERENCE LIMIT (URL) OF TROPONIN, DEFINED THE 99TH PERCENTILE OF cTnI DISTRIBUTION IN A REFERENCE POPULATION, HAS BEEN CONFIRMED THE DECISION THRESHOLD FOR GA DIAGNOSIS. Performed By: #### C MADM, CMP, BNP #### [facility] [address] [place] [address] Dr. Owen Regan MICKI 43 ng/mL Normal 9-82 [facility] Comment on above: Performed By: #### C MADM, CMP, BNP #### [facility] [address] [address] [address] Owen Regan CBC AUTO DIFFon 06-29-2022 BASO # 0.0 103/ul Normal 0.0-0.1 [facility] Comment on above: Performed By: #### C BC #### [facility] [address] [place] [address] Dr. Owen Regan Basophils/100 WBC (Bld) 0.3 % Normal 0.2-2.0 [facility] Comment on above: Performed By: #### C BC #### [facility] [address] [place] [address] Dr. Owen Regan EO # 0.2 103/ul Normal 0.0-0.7 [facility] Comment on above: Performed By: #### C BC #### [facility] [address] [place] [address] Dr. Owen Regan Eosinophils/100 WBC (Bld) 1.5 % Normal 0.9-7.0 [facility] Comment on above: Performed By: #### C BC #### [facility] [address] [place] [address] Dr. Owen Regan Erythrocyte distribution width (RBC) [Ratio] 13.1 % Normal 11.0-15.0 [facility] Comment on above: Performed By: #### C BC #### [facility] [address] [place] [address] Dr. Owen Regan Hematocrit (Bld) [Volume fraction] 41.3 % Normal 36.0-48.0 [facility] Comment on above: Performed By: #### C BC #### [facility] [address] [place] [address] Dr. Owen Regan Hemoglobin (Bld) [Mass/Vol] 14.3 g/dL Normal 12.0-16.0 [facility] Comment on above: Performed By: #### C BC #### [facility] [address] [place] [address] Dr. Owen Regan IG # 0.03 10e3/ul Normal 0.00-0.03 [facility] Comment on above: Performed By: #### C BC #### [facility] [address] [place] [address] Dr. Owen Regan IG % 0.2 % Normal 0.0-0.5 [facility] Comment on above: Performed By: #### C BC #### [facility] [address] [place] [address] Dr. Owen Regan LYMPH # 3.7 103/ul Normal 1.2-3.8 [facility] Comment on above: Performed By: #### C BC #### [facility] [address] [place] [address] Dr. Owen Regan Lymphocytes/100 WBC (Bld) 30.5 % Normal 20.5-60.0 [facility] Comment on above: Performed By: #### C BC #### [facility] [address] [place] [address] Dr. Owen Regan MANUAL DIFF REQ NO Normal [facility] Comment on above: Performed By: #### C BC #### [facility] [address] [place] [address] Dr. Owen Regan MCH (RBC) [Entitic mass] 31.5 pg Normal 26.7-34.0 [facility] Comment on above: Performed By: #### C BC #### [facility] [address] [place] [address] Dr. Owen Regan MCHC (RBC) [Mass/Vol] 34.6 g/dL Normal 29.9-35.2 [facility] Comment on above: Performed By: #### C BC #### [facility] [address] [place] [address] Dr. Owen Regan MCV (RBC) [Entitic vol] 91.0 fL Normal 81.0-99.0 [facility] Comment on above: Performed By: #### C BC #### [facility] [address] [place] [address] Dr. Owen Regan MONO # 0.7 103/ul Normal 0.3-0.8 [facility] Comment on above: Performed By: #### C BC #### [facility] [address] [place] [address] Dr. Owen Regan Monocytes/100 WBC (Bld) 5.6 % Normal 1.7-12.0 [facility] Comment on above: Performed By: #### C BC #### [facility] [address] [place] [address] Dr. Owen Regan NEUT # 7.5 103/ul Critically high 1.4-6.[address] [facility] Comment on above: Performed By: #### C BC #### [facility] [address] [place] [address] Dr. Owen Regan Neutrophils/100 WBC (Bld) 61.9 % Normal 43.0-75.0 [facility] Comment on above: Performed By: #### C BC #### [facility] [address] [place] [address] Dr. Owen Regan Platelet mean volume (Bld) [Entitic vol] 10.3 fL Normal 9.5-13.5 [facility] Comment on above: Performed By: #### C BC #### [facility] [address] [place] [address] Dr. Owen Regan PLT 229 103/ul Normal 150-450 [facility] Comment on above: Performed By: #### C BC #### [facility] [address] [place] [address] Dr. Owen Regan RBC 4.54 106/ul Normal 4.20-5.40 [facility] Comment on above: Performed By: #### C BC #### [facility] [address] [place] [address] Dr. Owen Regan WBC 12.1 103/ul Critically high 4.0-11.0 [facility] Comment on above: Performed By: #### C BC #### [facility] [address] [place] [address] CHEST WO CONon 06-29-2022 CT CHEST WO CON EXAM: CT CHEST WO CON TECHNIQUE: Axial CT images were obtained of the chest without intravenous contrast administration. Sagittal and coronal reformatted images were also obtained. Dose reduction techniques were achieved by using automated exposure control and/or adjustment of mA and/or kV according to patient size and/or use of iterative reconstruction technique. HISTORY: COUGH COMPARISON: None. ___ FINDINGS: Neck and Axilla: No lower neck or axillary lymphadenopathy. Mediastinum and Pari: No hilar or mediastinal lymphadenopathy. The esophagus is grossly unremarkable without dilatation or gross mass lesion. Heart and Major Vessels: The heart appears unremarkable for size without pericardial effusion. The aorta and central pulmonary arteries are unremarkable for size. Lung Bustamante: The lungs are clear of acute infiltrate or mass. Pleural Cavities: No significant pleural effusion. No pneumothorax. Upper Abdomen: No acute abnormality identified. Chest Wall: No acute abnormality. IMPRESSION: No acute pulmonary disease. Electronically authenticated by: RABIA MARTINEZ Date: 2022-06-29 21:16 Normal [facility] PROF 14(COMP METB)on 023 Albumin [Mass/Vol] 3.9 g/dL Normal 3.4-5.0 [facility] Comment on above: Performed By: #### C MADM, CMP, BNP #### [facility] [address] [place] [address] Dr. Owen Regan Albumin/Globulin [Mass ratio] 1.2 {ratio} Normal [facility] Comment on above: Performed By: #### C MADM, CMP, BNP #### [facility] [address] [address] [address] Owen Regan ALP [Catalytic activity/Vol] 86 U/L Normal 46-116 [facility] Comment on above: Performed By: #### C MADM, CMP, BNP #### [facility] [address] [address] [address] Owen Regan ALT [Catalytic activity/Vol] 47 U/L Normal 14-59 [facility] Comment on above: Performed By: #### C MADM, CMP, BNP #### [facility] [address] [address] [address] Owen Regan Anion gap [Moles/Vol] 15.7 mmol/L Normal [facility] Comment on above: Performed By: #### C MADM, CMP, BNP #### [facility] [address] [address] [address] Owen Regan AST [Catalytic activity/Vol] 25 U/L Normal 15-37 [facility] Comment on above: Performed By: #### C MADM, CMP, BNP #### [facility] [address] [address] [address] Owen Regan Bilirubin [Mass/Vol] 0.3 mg/dL Normal 0.2-1.0 [facility] Comment on above: Performed By: #### C MADM, CMP, BNP #### [facility] [address] [address] [address] Owen Regan Calcium [Mass/Vol] 9.4 mg/dL Normal 8.5-10.1 [facility] Comment on above: Performed By: #### C MADM, CMP, BNP #### [facility] [address] [address] [address] Owen Regan Chloride [Moles/Vol] 105 mmol/L Normal 98-107 [facility] Comment on above: Performed By: #### C MADM, CMP, BNP #### [facility] [address] [address] [address] Owen Regan CO2 [Moles/Vol] 24.0 mmol/L Normal 21.0-32.0 [facility] Comment on above: Performed By: #### C MADM, CMP, BNP #### [facility] [address] [address] [address] Owen Regan Creatinine [Mass/Vol] 0.82 mg/dL Normal 0.55-1.02 [facility] Comment on above: Performed By: #### C MADM, CMP, BNP #### [facility] [address] [address] [address] Owen Regan EGFR-AF NORWEGIAN >60 Normal >=60 [facility] Comment on above: Performed By: #### C MADM, CMP, BNP #### [facility] [address] [address] [address] Owen Regan EGFR-NON AF NORWEGIAN >60 Normal >=60 [facility] Comment on above: Performed By: #### C MADM, CMP, BNP #### [facility] [address] [address] [address] Owen Regan Globulin (S) [Mass/Vol] 3.3 g/dL Normal [facility] Comment on above: Performed By: #### C MADM, CMP, BNP #### [facility] [address] [address] [address] Owen Regan Glucose [Mass/Vol] 101 mg/dL Normal 74-106 [facility] Comment on above: Performed By: #### C MADM, CMP, BNP #### [facility] [address] [place] [address] Dr. Owen Regan Potassium [Moles/Vol] 3.7 mmol/L Normal 3.5-5.1 [facility] Comment on above: Performed By: #### C MADM, CMP, BNP #### [facility] [address] [place] [address] Dr. Owen Regan Protein [Mass/Vol] 7.2 g/dL Normal 6.4-8.2 [facility] Comment on above: Performed By: #### C MADM, CMP, BNP #### [facility] [address] [address] [address] Owen Regan Sodium [Moles/Vol] 141 mmol/L Normal 136-145 [facility] Comment on above: Performed By: #### C MADM, CMP, BNP #### [facility] [address] [place] [address] Dr. Owen Regan Urea nitrogen [Mass/Vol] 10.0 mg/dL Normal 7.0-18.0 [facility] Comment on above: Performed By: #### C MADM, CMP, BNP #### [facility] [address] [place] [address] Dr. Owen Regan Urea nitrogen/Creatinine [Mass ratio] 12.2 mg/mg Normal [facility] Comment on above: Performed By: #### C MADM, CMP, BNP #### [facility] [address] [address] [address] Owen Regan XR CHEST 1 Von 06-29-2022 XR CHEST 1 V EXAMINATION: XR CHEST 1 V HISTORY: Cough COMPARISON: None. TECHNIQUE: Portable chest FINDINGS: The lung parenchyma is free of consolidation or infiltrate. No pneumothorax or pleural effusion. The cardiac, mediastinal and hilar contours are normal. The visualized osseous structures exhibit no gross abnormality. IMPRESSION: No acute cardiopulmonary abnormality. Electronically authenticated by: MANPREET PRICE Date: 2022-06-29 20:19 Normal [facility] PAP ACOG PANEL 2: 30 to 67on 05-17-2022 . . Normal [facility] Comment on above: Result Comment: Perf ormed at: WB Performed By: #### [id number] ####[facility] [address] [place] [address]Dr. Owen Regan Age Gdln ACOG Testing 30-65 Normal [facility] Comment on above: Performed By: #### [id number] ####[facility] [address] [address]Dr. Owen Regan DIAGNOSIS: Comment Normal [facility] Comment on above: Result Comment: NEGA TIVE FOR INTRAEPITHELIAL LESION OR MALIGNANCY. Performed at: WB Performed By: #### [id number] ####[facility] [address] [place] [address]Dr. Owen Rgean HPV Aptima Negative Normal Negative [facility] Comment on above: Result Comment: This nucleic acid amplification test detects fourteen high-risk HPV types (16,18,31,33,35,39,45,51,52,56,58,59,66,68) without differentiation. Performed at: =G Performed By: #### [id number] ####[facility] [address] [place] [address]Dr. Owen Regan HPV Genotype Reflex Comment Normal [facility] Comment on above: Result Comment: Crit eria not met, HPV Genotype not performed. Performed at: WB Performed By: #### [id number] ####[facility] [address] [place], [place] [address]DrRachelle Regan Methodology: Comment [facility] Comment on above: Result Comment: This liquid based ThinPrep(R) pap test was screened with the use of an image guided system. Performed at: WB Performed By: #### [id number] ####[facility] [address] [place], [place] [address]Dr. Owen Regan Note: Comment [facility] Comment on above: Result Comment: The Pap smear is a screening test designed to aid in the detection of premalignant and malignant conditions of the uterine cervix. It is not a diagnostic procedure and should not be used as the sole means of detecting cervical cancer. Both false-positive and false-negative reports do occur. . Performed at: WB Performed By: #### [id number] ####[place] [address]DrRachelle Regan Performed by: Comment Normal [facility] Comment on above: Result Comment: Natanael Aguilar, Assessor (ASCP) Performed at: WB Performed By: #### [id number] ####[facility] [address] [place], [place] [address]DrRachelle Regan Specimen adequacy: Comment Normal [facility] Comment on above: Result Comment: Sati sfactory for evaluation. Endocervical and/or squamous metaplastic cells (endocervical component) are present. Performed at: WB Performed By: #### [id number] ####[facility] [address] [place], [place] [address]Dr. Owen Regan COVID/FLU/RSV RT-PCRon 11-14 SARS-CoV-2 (COVID-19) RNA JACK+probe Ql (Unsp spec) Positive [facility] Other COVID/FLU/RSV RT-PCR Negative [employer] Other COVID Quick Testingon 2020 Result Positive [facility] Other Vital Signs Date Time Vital Sign Value Performing Clinician Facility 02-21-2024 16:17-0400 Body height 149.9 cm Jesús Vega [employer] Work Phone: [facility] 02-21-2024 16:17-0400 Body mass index (BMI) [Ratio] 40.8 kg/m2 Jesús Vega [employer] WORK[employer] Work Phone: [facility] 02-21-2024 16:17-0400 Body weight 91.63 kg Jesús Vega [employer] WORK[employer] Work Phone: [facility] 02-21-2024 16:17-0400 Diastolic blood pressure 75 mm[Hg] Jesús Vega [employer] WORK[employer] Work Phone: [facility] 02-21-2024 16:17-0400 Heart rate 85 /min Jesús Vega [employer] WORK[employer] Work Phone: [facility] 02-21-2024 16:17-0400 Systolic blood pressure 100 mm[Hg] Jesús Vega [employer] WORK[employer] Work Phone: [facility] 02-25-2023 15:15-0400 Body height 149.86 cm Silva Bryant Other [facility] Other 02-25-2023 15:15-0400 Body mass index (BMI) [Ratio] 43.18 kg/m2 Silva Bryant Other [facility] Other 02-25-2023 15:15-0400 Body temperature 98.1 [degF] Silva Bryant Other [facility] Other 02-25-2023 15:15-0400 Body weight 96.98 kg Silva Bryant Other [facility] Other 02-25-2023 15:15-0400 Respiratory rate 18 /min Silva Bryant Other [facility] Other 02-25-2023 15:15-0400 SaO2% (BldA) [Mass fraction] 97 % Silva Manny Other [facility] Other 11-14-2021 14:00-0400 Body height 149.86 cm Keri Urbina Other [facility] Other 11-14-2021 14:00-0400 Body mass index (BMI) [Ratio] 41 kg/m2 Keri Urbina Other [facility] Other 11-14-2021 14:00-0400 Body temperature 97.8 [degF] Keri Urbina Other [facility] Other 11-14-2021 14:00-0400 Body weight 92.08 kg Keri Urbina Other [facility] Other 11-14-2021 14:00-0400 SaO2% (BldA) [Mass fraction] 98 % Keri Urbina Other [facility] Other 03-22-2021 13:20-0500 Body height 149.86 cm Mary Al Other [facility] Other 03-22-2021 13:20-0500 Body mass index (BMI) [Ratio] 41.2 kg/m2 Mary Al Other [facility] Other 03-22-2021 13:20-0500 Body temperature 97.1 [degF] Mary Al Other [facility] Other 03-22-2021 13:20-0500 Body weight 92.53 kg Mary Al Other [facility] Other 03-22-2021 13:20-0500 Respiratory rate 16 /min Mary Al Other [facility] Other 03-22-2021 13:20-0500 SaO2% (BldA) [Mass fraction] 98 % Mary Al Other [facility] Other Encounters Encounter Date Encounter Type Care Provider Facility Start: 03-07-2024 End: 03-07-2024 ambulatory JESÚS VEGA Facility:[facility] [place] [place] Start: 03-07-2024 End: 03-07-2024 Patient encounter procedure JESÚS VEGA [facility] Start: 03-07-2024 End: 03-07-2024 Clinisync Result Encounter Jesús Vega [employer] WORK[employer] Work Phone: [employer] External Department Unsolicited Start: 03-07-2024 End: 03-07-2024 Clinisync Result Encounter Jesús Mendezcheryl [employer] WORKER Work Phone: [employer] External Department Unsolicited Start: 02-28-2024 End: 02-28-2024 ambulatory Izzy Hernández Facility:[facility] Start: 02-21-2024 End: 02-21-2024 Office outpatient visit 25 minutes Jesús Vega [employer] WORK[employer] Work Phone: [facility] Comment on above: PLMD (periodic limb movement disorder) (Primary Dx); Migraine without aura and without status migrainosus, not intractable (CMS/HCC); 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) Start: 02-21-2024 End: 02-21-2024 ambulatory JESÚS VEGA Not Available Start: 02-21-2024 End: 02-21-2024 Bamboo flowsheet Jesús Vega [employer] WORKER Work Phone: [facility] [address] Start: 02-21-2024 End: 02-21-2024 Bamboo flowsheet Jesús C Vanessagel [employer] WORKER Work Phone: [facility] Start: 01-05-2024 End: 01-05-2024 ambulatory [facility] Start: 09-20-2023 End: 09-20-2023 ambulatory [facility] Start: 09-08-2023 End: 09-08-2023 ambulatory JESÚS C WINDNAGEL Not Available Start: 09-06-2023 End: 09-06-2023 ambulatory JESÚS C WINDNAGEL Not Available Start: 08-31-2023 End: 08-31-2023 Lab Drop off Izzy L Edgar [facility] Start: 08-31-2023 End: 08-31-2023 ambulatory Izzy L Edgar Facility:[facility] Start: 08-17-2023 End: 08-17-2023 ambulatory Izzy L Edgar Facility[facility] Start: 08-10-2023 End: 08-10-2023 ambulatory JESÚS C WINDNAGEL Not Available Start: 07-25-2023 End: 07-25-2023 [facility] Start: 06-13-2023 End: 06-15-2023 Emergency department patient visit [facility] Start: 06-13-2023 ambulatory [facility] Start: 06-07-2023 End: 06-07-2023 ambulatory Izzy L Edgar Facility:[facility] Start: 06-03-2023 End: 06-03-2023 ambulatory [facility] Start: 05-03-2023 End: 05-03-2023 ambulatory Izzy L Degar Facility:[facility] Start: 04-04-2023 End: 04-04-2023 ambulatory KIERRA PIRECE Not Available Start: 02-25-2023 End: 02-25-2023 ambulatory Silva Bryant Other [facility] Other Start: 02-25-2023 Office outpatient vi sit 25 minutes Silva Bryant [facility] Start: 09-16-2022 End: 09-16-2022 ambulatory ARISTIDES GILBERT Facility:[facility] Start: 08-06-2022 Encounter for genera l adult medical examination without abnormal findings DR MIKIE CARBAJAL [facility] Start: 07-29-2022 End: 07-30-[address] MIKIE CARBAJAL Facility:[facility] Start: 07-29-2022 End: 07-30-2022 Encounter for general adult medical examination without abnormal findings DR MIKIE CARBAJAL Facility:[facility] Start: 07-01-2022 End: 07-02-[address] MIKIE CARBAJAL Facility:[facility] Start: 06-29-2022 End: 06-29-[address] MIKIE CARBAJAL Facility:[facility] Start: 05-12-2022 End: 05-12-[address] AMY TOLLIVER . Facility:[facility] Start: 11-14-2021 End: 11-14-2021 ambulatory Keri Urbina Other [facility] Other Start: 11-14-2021 Office outpatient vi sit 15 minutes Keri Urbina [facility] Start: 03-22-2021 End: 03-22-2021 ambulatory Mary Al Other [facility] Other Start: 03-22-2021 Office outpatient ne w 20 minutes Mary Al [facility] Start: 08-16-2018 End: 08-17-2018 Patient encounter procedure DEFAULT PHYSICIAN Facility:[facility] Procedures Date Procedure Procedure Detail Performing Clinician Start: 03-07-2024 [facility] [place] [place] PLT FUNCTION ASSAY Jesús Vega NP Work Phone: Start: 12-24-2022 Surgical procedure Izzy Hernández Start: 01-23-2021 Hysterectomy Izzy Hickman b Start: 04-15-2020 section Izzy Miranda chwachance Start: 12-22-2015 section Izzy Miranda chwachance Start: 04-25-2006 Cholecystectomy Izzy Hardy hwab Start: 12-14-2004 section Izzy Miranda chwab Plan of Treatment Date Care Activity Detail Author Start: 08-07-2024 End: 08-07-2024 Patient encounter procedure 08/07/2024 4:20 PM EDT Office Visit [facility] [address] [place] [address] Martha Toney PA [address] [place], [place] [id number] [facility] [address] [facility] Start: 02-21-2024 End: 02-21-2024 Patient encounter procedure 02/21/2024 4:20 PM EDT Office Visit [facility] [address] [place] [id number] Jesús Vega, [employer] WORKER [address] [place] [address] Arrived [facility] [address] Comment on above: Arrived Start: 02-21-2024 End: 02-20-2025 PLATELET INHIBITION, ASA ([place]) PLATELET INHIBITION, ASA ([place]) Lab Routine 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 ([facility]) Expected: 02/21/2024 (Approximate), Expires: 02/20/2025 [facility] [email or web address] Work Phone: Comment on above: Expected: 02/21/2024 (Approximate), Expires: 02/20/2025 Payers Date Payer Category Payer [employer] Cross Blue [employer] [facility] [id number] 1982 Unknown [id number] 2.16.840.1.976806.3.57 9.2.647 1982 Unknown [id number] 2.16.840.1.930325.3.57 9.2.593 1982 Unknown [id number] 2.16.840.1.388582.3.57 9.2.593 1982 Unknown [id number] 2.16.840.1.386943.3.57 9.2.593 1982 Unknown [id number] 2.16.840.1.502921.3.57 9.2.593 1982 Unknown [id number] 2.16.840.1.114582.3.57 9.2.593 1982 Unknown [id number] 2.16.840.1.262227.3.57 9.2.1286 1982 Unknown [id number] 2.16.840.1.190738.3.57 9.2.1286 1982 Unknown [id number] 2.16.840.1.683726.3.57 9.2.1286 1982 Unknown [id number] 2.16.840.1.681973.3.57 9.2.1286 1982 Unknown [id number] 2.16.840.1.689360.3.57 9.2.1286 1982 Unknown [id number] 2.16.840.1.990292.3.57 9.2.1286 1982 Unknown [id number] 2.16.840.1.576552.3.57 9.2.1259 1982 Unknown [id number] 2.16.840.1.241233.3.57 9.2.1258 1982 Unknown [id number] 2.16.840.1.104549.3.57 9.2.9 1982 Unknown [id number] 2.16.840.1.777374.3.57 9.2.1258 1982 Unknown [id number] 2.16.840.1.635349.3.57 9.2.1258 1982 Unknown [id number] 2.16.840.1.683848.3.57 9.2 1982 Unknown [id number] 2.16.840.1.793643.3.57 9.2 1982 Unknown [id number] 2.16.840.1.957464.3.57 9.2 1982 Unknown [id number] 2.16.840.1.195859.3.57 9.2 1982 Unknown [id number] 2.16.840.1.690229.3.57 9.2 1982 Unknown [id number] 2.16.840.1.625808.3.57 9.2 1982 Unknown [id number] 2.16.840.1.944388.3.57 9.2 1959 [facility] [id number] 2.16.840.1.959304.19 Unknown Social History Date Type Detail Facility Unknown if ever smoked [facility] Other Start: 09-04-2023 End: 02-21-2024 Sex Assigned At [facility] Start: 08-31-2023 End: 02-28-2024 Tobacco smoking status Heavy tobacco smoker (finding) [facility] [place] Start: 08-04-2023 Tobacco smoking stat us NHIS Ex-smoker [facility] History of tobacco use Current smoker [facility] History of tobacco use Cigarette Smoker [facility] Start: 09-08-2023 End: 02-21-2024 Alcoholic beverage intake Current drinker of alcohol (finding) [facility] Start: 09-04-2023 End: 02-21-2024 History of Social function [facility] How often to you hav e a drink containing alcohol? Monthly or less [facility] How many standard drinks containing alcohol do you have on a typical day? 1 or 2 [facility] How often do you hav e 6 or more drinks on 1 occasion? Never [facility] Start: 08-04-2023 Alcohol Comment Caffeine intak e: more than 4 cups per day [facility] Start: 1980 Sex assigned at Not on file [facility] Tobacco smoking status Never [facility] [place] Evaluation note 02-25-2023 Note Date & Type Note Facility 02-25-2023 Evaluation note Encounter Date Diagnosis Assessment Notes Feb, Contact with and (suspected) exposure to covid-19 (ICD-10 - Z20.822) Feb, Viral URI with cough (ICD-10 - J06.9) Advised patient that rapid COVID test was negative today. Advised patient that will treat as viral URI. Supportive care as directed, increase fluids and rest, Tylenol/Motrin as directed, rx of Capmist, cool mist humidifier, throat lozenges. Discussed infection control practices such as good hand washing and mask wearing. Patient to follow up with PCP if symptoms persist or worsen despite treatment. Immediate eval for SOB, difficulty breathing, chest pain, fevers that do not break with antipyretic or any other concerning symptoms as reviewed on patient education handout. Patient verbalizes understanding and is agreeable to treatment plan. Patient left in stable condition [facility] Other Evaluation note 11-14-2021 Note Date & Type Note Facility 11-14-2021 Evaluation note Encounter Date Diagnosis Assessment Notes Oct, Cough (ICD-10 - R05.9) Oct, COVID-19 (ICD-10 - U07.1) Discharge Instructions for COVID-19 (Suspected or Confirmed ) material was printed Drink plenty fluids, get plenty of rest. Take Tylenol or Motrin for aches pains or fevers. You must quarantine for 5 days after the onset of your symptoms of COVID. Follow-up with your family physician if no improvement in 2 to 3 days. [facility] Other Evaluation note 03-22-2021 Note Date & Type Note Facility 03-22-2021 Evaluation note Encounter Date Diagnosis Assessment Notes Feb, Contact with and (suspected) exposure to other viral communicable diseases (ICD-10 - Z20.828) covid pos, see above. Feb, COVID (ICD-10 - U07.1) Covid test pos in office today. Pt is to use inhaler as prescribed prn for cough and wheeze. Supportive care as directed. Push fluids and rest. Pt is to take otc antipyretic prn for fever and aches. Pt is to take rx cough suppressant prn for cough. They are to follow the recommended stay at home quarantine rules for 10 days from onset of sx and they are to avoid contact with others in the home. Pt is to be re-evaluated after tx if sx worsen or don't improve by pcp or UC. Discussed at length sx of resp distress that would indicate need for immediate ER tx. Sx include but not limited to worsening SOB, wheeze, dyspnea, difficulty swallowing or breathing, and chest pain. Go straight to ER for any of these sx. Pt is to call the office with any questions or concerns regarding dx and tx. Information sheet with test results, general info on covid virus, and info sheet about treatment at home and quarantine guidelines was provided to pt in office today. Pt was referred to PCP for chronic management. Pt understood and agreed to tx plan. Feb, Other Additional time spent conducting pre-visit phone call, screening for symptoms, instructions on social distancing, application and removal of PPE, and cleaning of examination room, equipment and supplies was preformed. Patient education given for testing methodology and results. Patient care instructions given in writting by [facility] Care At Home document. [facility] Other History general Narrative - Reported 01-23-2021 Note Date & Type Note Facility 01-23-2021 History general N arrative - Reported Type Medical History gestational diabetes Medical History type II diabetes Surgical History partial hysterectomy 01/2021 Hospitalization History Partial hysterectomy 2020 [facility] Other History general Narrative - Reported 01-23-2021 Note Date & Type Note Facility 01-23-2021 History general N arrative - Reported Type Medical History gestational diabetes Medical History type II diabetes Surgical History partial hysterectomy 01/2021 Surgical History Surgical History cholecystectomy Hospitalization History Partial hysterectomy 2020 [employer] [facility] [employer] Other History general Narrative - Reported 01-23-2021 Note Date & Type Note Facility 01-23-2021 History general N arrative - Reported Type Medical History gestational diabetes Medical History type II diabetes Surgical History partial hysterectomy 01/2021 Surgical History Surgical History cholecystectomy Surgical History pfo closure 2022 Hospitalization History Partial hysterectomy 2020 Hospitalization History stroke 2022 [facility] Other Evaluation + Plan note Note Date & Type Note Facility Evaluation + Plan note No data available for this section [facility] Evaluation note Note Date & Type Note Facility Evaluation note Diagnosis PLMD (periodic limb movement disorder)- Primary Periodic limb movement disorder Migraine without aura and without status migrainosus, not intractable (CMS/HCC) 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 ([facility]/HCC) documented in this encounter [facility] Hospital Discharge instructions Note Date & Type Note Facility Hospital Discharge instructions No data available for this section [facility] Progress note Note Date & Type Note Facility Progress note No data available for this section [facility] Summary Purpose Family History No Family History Records FoundNo Family History Records FoundNo Family History Records Found No data available for this section No Family History Records FoundNo Family History Records Found No data available for this section No Family History Records FoundNo Family History Records Found Advance Directives No Advanced Directives Records FoundNo Advanced Directives Records FoundNo Advanced Directives Records FoundNo Advanced Directives Records FoundNo Advanced Directives Records FoundNo Advanced Directives Records FoundNo Advanced Directives Records Found Additional Source Comments INFORMATION SOURCE (unrecogn ized section and content) DATE CREATED AUTHOR 08/18/2018 [facility] DATE CREATED AUTHOR AUTHOR'S ORGANIZ ATION 10/04/2022 [facility] DATE CREATED AUTHOR AUTHOR'S ORGANIZ ATION 06/22/2023 [facility] DATE CREATED AUTHOR AUTHOR'S ORGANIZ ATION 01/07/2024 [facility] DATE CREATED AUTHOR AUTHOR'S ORGANIZ ATION 02/23/2024 [facility] EP[facility] DATE CREATED AUTHOR AUTHOR'S ORGANIZ ATION 03/10/2024 [facility] DATE CREATED AUTHOR AUTHOR'S ORGANIZ ATION 03/13/2024 [facility] REASON FOR VISIT (unrecogniz ed section and content) congestion, no taste, coughW ARIANA TRAVERSE, B/A, CHILLS, FEVER, SORE THROAT, RUNNY NOSE, COUGHCOUGH, CONGESTION Patient Care team informatio n (unrecognized section and content) Soapstoner Relationship Specialty Start Date End Date Regina Villegas MD PCP - General Family Medicine 04/04/23 Craig Correa MD [address] [place] [address] Referring Physician Neurology 07/12/23 Soapstoner Relationship Specialty Start Date End Date Regina Villegas MD [address] [place] [address] PCP - General Family Medicine 02/21/24 Craig Correa MD [address] [place] [address] Referring Physician Neurology 07/12/23 Martha Toney PA [address] [place] [address] Physician Communications Coordinator Neurology 02/21/24 Estee Akhtar PA [address] [place] [address] Physician Communications Coordinator Neurology 02/21/24 Soapstoner Relationship Specialty Start Date End Date Regina Villegas MD [address] [facility] [place] [address] PCP - General Family Medicine 02/21/24 Craig Correa MD [address] [place], [place] [id number] Referring Physician Neurology 07/12/23 Martha Toney PA [address] [facility] [address] [place], [place] [id number] Physician Communications Coordinator Neurology 02/21/24 Estee Akhtar PA [address] [place] [address] Physician Communications Coordinator Neurology 02/21/24 FOR RECORDS PERTAINING TO PATIENTS WHO ARE OR HAVE BEEN ENROLLED IN A CHEMICAL DEPENDENCY/SUBSTANCEABUSE PROGRAM, SOME INFORMATION MAY BE OMITTED. This clinical summary was aggregated from multiple sources. Caution should be exercised in using it in the provision of clinical care. This summary normalizes information from multiple sources, and as a consequence, information in this document may materially change the coding, format and clinical context of patient data. In addition, data may be omitted in some cases. CLINICAL DECISIONS SHOULD BE BASED ON THE PRIMARY CLINICAL RECORDS. [employer] [facility]. provides no warranty or guarantee of the accuracy or completeness of information in this document.
--- NOTE | 2024-04-12 22:59 | CT_ITS ---
The [address] [address] Patient Name: JOHNIE KAMARA MRN: [id number] date: 1980 Sex: F Assigned Patient Location: ER Current Patient Location: Accession/Order Number: [id number] Exam Date: 04/12/2024 23:08 Report Date: 04/12/2024 23:29 At the request of: ARISTIDES GILBERT Procedure: CT head/brain wo con EXAM: CT head/brain wo con, CT cervical spine wo con HISTORY: Right arm pain and numbness INDICATION: 43 years old; Female. TECHNIQUE: CT Head (ax/cor/sag reformats). Ionizing radiation dose reduced via iterative reconstruction/FBP blend and body size kV/mA adjustment. Comparison: Head CT dated 06/22/2023. FINDINGS: POSTOPERATIVE CHANGES: None. BRAIN PARENCHYMA: No intraparenchymal or extra-axial hemorrhage. No mass effect. No midline shift or herniation. Normal palma/white differentiation. VENTRICLES/EXTRA-AXIAL SPACES: Ventricles and extra ventricular spaces are within normal limits for patient's age. There is inferior displacement of the cerebellar tonsils and relation the foramen magnum which extend down to the level of the posterior arch of C1. There is pointed configuration in the appearance of be consistent with Chiari I malformation. Confirmation with MRI the brain and cervical spine is recommended. SINUSES/MASTOIDS: The visualized sinuses are clear although the maxillary sinuses are not completely included. Genia bullosa bilaterally. Mastoids and middle ears are clear. MSK: No displaced or depressed calvarial fracture. OTHER: No hyperdense intraluminal thrombus. TECHNIQUE: CT imaging of the cervical spine was performed. IV contrast: None. Dose reduction techniques were achieved by using automated exposure control and/or adjustment of mA and/or kV according to patient size and/or use of iterative reconstruction technique. COMPARISON: None available. FINDINGS: POSTOPERATIVE CHANGES: None. ALIGNMENT: Nonspecific straightening of the normal cervical curve. COMPRESSION FRACTURES: No fracture or vertebral body collapse. No bone displacement. No asymmetric widening of the facets. PREVERTEBRAL SOFT TISSUES: Normal. CRANIOCERVICAL JUNCTION: There is a normal relationship of the occipital condyles, lateral masses of C1, and articular surfaces of C2. The base of the dens and body of C2 are intact. There is normal predental space with spurring arising from the anterior arch of C1 and the tip of the dens. POSTERIOR FOSSA: There is inferior displacement of cerebellar tonsils which extend down to the posterior arch of C1. The tonsils have a pointed configuration the appearance of be consistent with Chiari I malformation. Recommend nonemergent follow-up with MRI of the brain and cervical spine. Disc levels: C2-C3: No disc herniation. No spinal canal or foraminal narrowing. C3-C4: No disc herniation. No spinal canal or foraminal narrowing. C4-C5: No disc herniation. No spinal canal or foraminal narrowing. C5-C6: No disc herniation. No spinal canal or foraminal narrowing. C6-C7: No disc herniation. No spinal canal or foraminal narrowing. C7-T1: Beam hardening artifacts. Central canal patent. Neural foramina patent. UPPER THORACIC SPINE: At T1-T2 and T2-T3, Beam hardening artifacts. Central canal and neural foramina are patent. OTHER: No thyroid nodule or adenopathy. CT/CT head/brain wo con IMPRESSION: 1. No acute intracranial abnormality. No hemorrhage or mass effect. 2. Findings consistent with Chiari I malformation. Recommend nonemergent follow-up with MRI the brain and cervical spine. 3. No cervical fracture. No disc herniation or bony stenosis. Electronically authenticated by: RIVERA BOBBY Date: 04/12/2024 23:29
--- NOTE | 2024-04-12 23:00 | CT_ITS ---
The [address] [address] Patient Name: JOHNIE KAMARA MRN: [id number] date: 1980 Sex: F Assigned Patient Location: ER Current Patient Location: Accession/Order Number: [id number] Exam Date: 04/12/2024 23:08 Report Date: 04/12/2024 23:29 At the request of: ARISTIDES GILBERT Procedure: CT cervical spine wo con EXAM: CT head/brain wo con, CT cervical spine wo con HISTORY: Right arm pain and numbness INDICATION: 43 years old; Female. TECHNIQUE: CT Head (ax/cor/sag reformats). Ionizing radiation dose reduced via iterative reconstruction/FBP blend and body size kV/mA adjustment. Comparison: Head CT dated 06/22/2023. FINDINGS: POSTOPERATIVE CHANGES: None. BRAIN PARENCHYMA: No intraparenchymal or extra-axial hemorrhage. No mass effect. No midline shift or herniation. Normal palma/white differentiation. VENTRICLES/EXTRA-AXIAL SPACES: Ventricles and extra ventricular spaces are within normal limits for patient's age. There is inferior displacement of the cerebellar tonsils and relation the foramen magnum which extend down to the level of the posterior arch of C1. There is pointed configuration in the appearance of be consistent with Chiari I malformation. Confirmation with MRI the brain and cervical spine is recommended. SINUSES/MASTOIDS: The visualized sinuses are clear although the maxillary sinuses are not completely included. Genia bullosa bilaterally. Mastoids and middle ears are clear. MSK: No displaced or depressed calvarial fracture. OTHER: No hyperdense intraluminal thrombus. TECHNIQUE: CT imaging of the cervical spine was performed. IV contrast: None. Dose reduction techniques were achieved by using automated exposure control and/or adjustment of mA and/or kV according to patient size and/or use of iterative reconstruction technique. COMPARISON: None available. FINDINGS: POSTOPERATIVE CHANGES: None. ALIGNMENT: Nonspecific straightening of the normal cervical curve. COMPRESSION FRACTURES: No fracture or vertebral body collapse. No bone displacement. No asymmetric widening of the facets. PREVERTEBRAL SOFT TISSUES: Normal. CRANIOCERVICAL JUNCTION: There is a normal relationship of the occipital condyles, lateral masses of C1, and articular surfaces of C2. The base of the dens and body of C2 are intact. There is normal predental space with spurring arising from the anterior arch of C1 and the tip of the dens. POSTERIOR FOSSA: There is inferior displacement of cerebellar tonsils which extend down to the posterior arch of C1. The tonsils have a pointed configuration the appearance of be consistent with Chiari I malformation. Recommend nonemergent follow-up with MRI of the brain and cervical spine. Disc levels: C2-C3: No disc herniation. No spinal canal or foraminal narrowing. C3-C4: No disc herniation. No spinal canal or foraminal narrowing. C4-C5: No disc herniation. No spinal canal or foraminal narrowing. C5-C6: No disc herniation. No spinal canal or foraminal narrowing. C6-C7: No disc herniation. No spinal canal or foraminal narrowing. C7-T1: Beam hardening artifacts. Central canal patent. Neural foramina patent. UPPER THORACIC SPINE: At T1-T2 and T2-T3, Beam hardening artifacts. Central canal and neural foramina are patent. OTHER: No thyroid nodule or adenopathy. CT/CT cervical spine wo con IMPRESSION: 1. No acute intracranial abnormality. No hemorrhage or mass effect. 2. Findings consistent with Chiari I malformation. Recommend nonemergent follow-up with MRI the brain and cervical spine. 3. No cervical fracture. No disc herniation or bony stenosis. Electronically authenticated by: RIVERA BOBBY Date: 04/12/2024 23:29
--- NOTE | 2024-04-12 23:02 | ED.GENADUL1 ---
HPI HPI - General Adult General Chief complaint: Extremity Problem, Nontraumatic Stated complaint: Right arm pain numb Time Seen by Provider: 04/12/24 22:48 Source: patient Mode of arrival: Wheelchair Limitations: no limitations History of Present Illness HPI narrative: 43-year-old female presents to the emergency department for pain and numbness in her right arm. She had fallen asleep and woke up within the last hour and her arm was hurting and it felt numb. She has no symptoms of a headache or facial symptoms or right leg symptoms. In August 2022 she states she had a stroke and she was found to have a PFO and had surgical repair. In May of this year she had similar symptoms to what she has today but at that time she had a headache and she had a negative workup including a CAT scan. There was no trauma this time and she has not had a fever and does not have any complaints of weakness or speech issues. Her symptom is only subjective numbness and pain. Related Data Home Medications ?Medication ?Instructions ?Recorded ?Confirmed atorvastatin 40 mg tablet 40 mg PO DAILY 10/05/22 01/12/23 buspirone 10 mg tablet 10 mg PO TID 10/05/22 01/12/23 clopidogrel 75 mg tablet 75 mg PO DAILY 10/05/22 01/12/23 escitalopram oxalate 10 mg tablet 10 mg PO DAILY 10/05/22 01/12/23 aspirin 81 mg tablet,delayed 81 mg PO DAILY 01/12/23 04/12/24 release Allergies Allergy/AdvReac Type Severity Reaction Status Date / Time protamine Allergy Intermediate Hives Verified 04/12/24 22:53 aspirin Allergy Mild Hives Verified 04/12/24 22:53 Sulfa (Sulfonamide Allergy Unknown Anaphylaxis Verified 04/12/24 22:53 Antibiotics) topiramate (From Topamax) AdvReac Intermediate Hives Verified 04/12/24 22:53 Opioid HPI Opioid Management Most Recent Opioid Data: Last Pain Scale 5 01/12/23 08:07 01/12/23 Review of Systems ROS Narrative A ten point review of systems is negative except as noted above. [facility] Medical History (Updated 04/13/24 @ 00:57 by Phani Parks MD) Stroke ?I63.9 - Cerebral infarction, unspecified (ICD-10) Surgical History (Updated 10/06/22 @ 19:24 by Monserrat Richards) History of cholecystectomy ?Z90.49 - Acquired absence of other specified parts of digestive tract (ICD-10) History of hysterectomy ?Z90.710 - Acquired absence of both cervix and uterus (ICD-10) Social History Smoking status: Former smoker Little interest or pleasure in doing things: not at all Feeling down, depressed, or hopeless: not at all Exam Narrative Exam Narrative: Nurses note and vital signs reviewed and patient is not hypoxic. General: The patient appears well and in no apparent distress. Patient is resting comfortably on cart. Skin: Warm, dry, no pallor noted. There is no rash noted. Head: Normocephalic, atraumatic Eye: Normal conjunctiva, no drainage Ears, Nose, Mouth, and Throat: oral mucosa is moist. Nares patent. Cardiovascular: Regular Rate and Rhythm Respiratory: Patient is in no distress, no accessory muscle use, lungs are clear to auscultation, no wheezing, rales or rhonchi Back: non-tender GI: Soft and nontender Musculoskeletal: The patient has no evidence of calf tenderness, no pitting edema, symmetrical pulses noted bilaterally Neurological: A&O, normal speech; upper and lower extremity strength 5 out of 5 and symmetric. Cranial nerves II through XII are intact. She has subjective numbness in the right arm only. Psychiatric: Cooperative Constitutional Vital Signs, click to edit/add: Last Vital Signs Temp 98.8 F 04/12/24 22:47 Pulse 77 04/12/24 22:47 Resp 22 H 04/12/24 22:47 BP 121/82 04/12/24 22:47 Pulse Ox 100 04/12/24 22:47 O2 Del Method Room Air 04/12/24 22:47 Course Vital Signs Vital signs: Vital Signs Temperature 98.8 F 04/12/24 22:47 Pulse Rate 77 04/12/24 22:47 Respiratory Rate 22 H 04/12/24 22:47 Blood Pressure 121/82 04/12/24 22:47 Pulse Oximetry 100 04/12/24 22:47 Oxygen Delivery Method Room Air 04/12/24 22:47 Temperature 98.8 F 04/12/24 22:47 Pulse Rate 77 04/12/24 22:47 Respiratory Rate 22 H 04/12/24 22:47 Blood Pressure 121/82 04/12/24 22:47 Pulse Oximetry 100 04/12/24 22:47 Oxygen Delivery Method Room Air 04/12/24 22:47 Medical Decision Making MDM Narrative Medical decision making narrative: CT brain and CT C-spine are both negative. She was given IM Toradol and her pain and numbness both subsided completely and she was left just with a tight feeling in the arm. She has a normal motor exam. Case discussed with interventional neurologist on-call at [facility] and we have agreed that the patient can be discharged home. She is going to call her regular neurologist in the morning for follow-up. At this point I do not clinically suspect a stroke. Findings were discussed with the patient. Differential Diagnosis Differential Diagnosis: Paresthesia, cervical radiculopathy, stroke Imaging Data CT scan - head: Radiologist's impression: ITS Impressions Head CT 04/12/24 22:59 IMPRESSION: 1. No acute intracranial abnormality. No hemorrhage or mass effect. 2. Findings consistent with Chiari I malformation. Recommend nonemergent follow-up with MRI the brain and cervical spine. 3. No cervical fracture. No disc herniation or bony stenosis. Electronically authenticated by: RIVERA BOBBY Date: 04/12/2024 23:[address] 04/12/24 23:00 IMPRESSION: 1. No acute intracranial abnormality. No hemorrhage or mass effect. 2. Findings consistent with Chiari I malformation. Recommend nonemergent follow-up with MRI the brain and cervical spine. 3. No cervical fracture. No disc herniation or bony stenosis. Electronically authenticated by: RIVERA BOBBY Date: 04/12/2024 23:29 Discharge Plan Discharge Chief Complaint: Extremity Problem, Nontraumatic Clinical Impression: Paresthesia Patient Disposition: Home, Self-Care Time of Disposition Decision: 00:57 Condition: Good Mode of Transportation: Private Vehicle Prescriptions / Home Meds: No Action atorvastatin 40 mg tablet 40 mg PO DAILY clopidogrel 75 mg tablet 75 mg PO DAILY buspirone 10 mg tablet 10 mg PO TID escitalopram oxalate 10 mg tablet 10 mg PO DAILY aspirin 81 mg tablet,delayed release (DR/EC) 81 mg PO DAILY Print Language: Cymraes Instructions: Paresthesia (ED) Additional Instructions: Follow-up with Dr. Laird. Call his office in the morning Referrals: NGHIA SALAZAR [Primary Care Provider] - 1 week Discharge Date/Time: 04/13/24 01:01
[2024-04-12] MEDS: KETOROLAC TROMETHAMINE 60 MG/2 ML VIAL IM (23:45)
== END 2024-04-13 01:01 | disposition home or self-care (01) ==
PROVIDERS: Emergency Provider Emergency Medicine; PCP Nurse Practitioner
DX: R20.2 Paresthesia of skin (principal); Z86.73 Personal history of transient ischemic attack (TIA), and cerebral infarction without residual deficits; Z90.49 Acquired absence of other specified parts of digestive tract; Z90.710 Acquired absence of both cervix and uterus; Z87.891 Personal history of nicotine dependence
CPT/HCPCS: 70450; 72125; 96372; 99285; J1885

== ENCOUNTER 2024-08-25 23:35 | Emergency (ER) | payer BC, SELFPAY ==
[2024-08-25 23:41] VITALS: BP 120/58; PULSE 77; TEMP 37.1; O2SAT 99; BMI 43.6
[2024-08-25 23:44] VITALS: BP 120/58; O2SAT 99
[2024-08-25 23:50] VITALS: O2SAT 97
[2024-08-26] VITALS (14 sets, daily range): BP systolic 111–119; BP diastolic 68–74; PULSE 77; O2SAT 95–97
[2024-08-26] MEDS: DIPHENHYDRAMINE HCL 50 MG/ML VIAL IM (01:13)
[2024-08-26] MEDS: KETOROLAC TROMETHAMINE 30 MG/ML VIAL 15 MG IM (01:13)
[2024-08-26] MEDS: HALOPERIDOL LACTATE 5 MG/ML VIAL IM (01:14)
--- NOTE | 2024-08-26 01:25 | ED_ITS ---
HPI - Neuro Symptoms/Deficit General Chief Complaint: Neuro Symptoms/Deficit Stated Complaint: POST STROKE PAIN & NUMBNESS Time Seen by Provider: 08/26/24 00:15 Source: patient Mode of arrival: Wheelchair Limitations: no limitations History of Present Illness HPI Narrative: The patient is a 44-year-old female presenting to the emergency department secondary to an acute exacerbation of chronic pain. This patient had a stroke 2 years ago. The patient stated it was an ischemic stroke. She presented to [facility] and received thrombolytic therapy. The patient did not require a mechanical thrombectomy. Patient was subsequently sent to a [facility] [place] [facility]. She remained hospitalized for 6 days. She apparently regained her strength back and was able to communicate again and was discharged home. While hospitalized, they identified that the patient had a PFO. She subsequently had a PFO closure. Chronically plagued the patient since the stroke has been her chronic pain. She has pain on her right side. It has been going on since a couple months after the stroke. Patient has seen her neurologist and primary care physician about this. The patient has had an EMG that was unremarkable. Patient's tried Lyrica and Neurontin and those were ineffective. Patient has not been referred to physical therapy or pain clinic. Patient stated that the pain is a 10 out of 10. She states that she is unable to sleep or do anything productive for the last 3 days. She states that she is only had to come to the emergency department 1 other time in the last 2 years. She states that she just cannot handle the pain any longer. She has not been diagnosed with complex regional pain syndrome or fibromyalgia. Related Data Home Medications ?Medication ?Instructions ?Recorded ?Confirmed atorvastatin 40 mg tablet 40 mg PO DAILY 10/05/2207/17 buspirone 10 mg tablet 10 mg PO TID 10/05/22 clopidogrel 75 mg tablet 75 mg PO DAILY 10/05/2207/17 escitalopram oxalate 10 mg tablet 10 mg PO DAILY 10/0508/25/24 aspirin 81 mg tablet,delayed 81 mg PO DAILY 01/12/23 1 06/13/23 release Allergies Allergy/AdvReac Type Severity Reaction Status Date / Time protamine Allergy Intermediate Hives Verified 08/25/24 23:41 aspirin Allergy Mild Hives Verified 08/25/24 23:41 Sulfa (Sulfonamide Allergy Unknown Anaphylaxis Verified 08/25/24 23:41 Antibiotics) topiramate (From Topamax) AdvReac Intermediate Hives Verified 08/25/24 23:41 Review of Systems ROS Narrative 10 Systems were reviewed, and unless not ed in the HPI, all other systems are reviewed, unremarkable, or noncontributory. [facility] Medical History Stroke ?I63.9 - Cerebral infarction, unspecified (ICD-10) Surgical History History of cholecystectomy ?Z90.49 - Acquired absence of other specified parts of digestive tract (ICD- 10) History of hysterectomy ?Z90.710 - Acquired absence of both cervix and uterus (ICD-10) Social History Smoking status: Former smoker Little interest or pleasure in doing things: not at all Feeling down, depressed, or hopeless: not at all Exam Narrative Exam Narrative: Prior to examining the patient, I have washed with hospital approved and provided Antiseptic Hand Tape Folding Machine Operator and have also applied gloves.? Prior to touching the patient, I asked for consent to examine the patient.? General: Alert and oriented, well nourished, mild distress. Eye: PERRL, EOMI, normal conjunctiva. HENT: Normocephalic, normal hearing, moist oral mucosa, no scleral icterus, Neck: Supple, non-tender, no lymphadenopathy. Lungs: Clear to auscultation and percussion, non-labored respiration. No rhonchi, rales, wheezing Heart: Normal rate, regular rhythm, no murmur, gallop or edema. Abdomen: Soft, non-tender, non-distended, normal bowel sounds, no masses. Musculoskeletal: Normal range of motion and strength, no swelling. There is tenderness of the right upper and lower extremity. Skin: Skin is warm, dry and pink, no rashes or lesions. Neurologic: Awake, alert, and oriented X3, CN II-XII intact. Psychiatric: Cooperative, appropriate mood and affect.? Following the conclusion of the examination, I have washed my hands thoroughly after removing examination gloves. Constitutional Vital Signs, click to edit/add: Last Vital Signs Temp 98.7 F 08/25/24 23:41 Pulse 77 08/25/24 23:41 Resp 18 08/25/24 23:41 BP 111/74 08/26/24 01:13 Pulse Ox 97 08/26/24 01:13 O2 Del Method Room Air 08/25/24 23:41 Course Course Hospital Course: Patient was seen and evaluated. Patient had a CT scan of the brain that did not show anything new. Patient's NIH stroke scale is 0. The only thing that I can elicit in my exam is pain. Patient and her had a discussion with me about complex regional pain syndrome. Patient was willing to try Toradol, Haldol, and Benadryl. She has had Toradol before. 1 time it did help. Another time they gave it to her with steroids and it was not as effective. Reevaluation(s) Reevaluation #1: Patient was in 8 out of 10 when I initially saw her. Patient had the shots in about 10 to 15 minutes and patient states that the pain is already improved to a 4 out of 10. Patient states her right upper extremity does not feel as tight. Time: 01:37 Vital Signs Vital signs: Vital Signs Temperature 98.7 F 08/25/24 23:41 Pulse Rate 77 08/25/24 23:41 Respiratory Rate 18 08/25/24 23:41 Blood Pressure 120/58 08/25/24 23:41 Pulse Oximetry 99 08/25/24 23:41 Oxygen Delivery Method Room Air 08/25/24 23:41 Temperature 98.7 F 08/25/24 23:41 Pulse Rate 77 08/25/24 23:41 Respiratory Rate 18 08/25/24 23:41 Blood Pressure 111/74 08/26/24 01:13 Pulse Oximetry 97 08/26/24 01:13 Oxygen Delivery Method Room Air 08/25/24 23:41 MDM - Neuro Symptoms/Deficit MDM Narrative Medical decision making narrative: Literature suggests that complex regional pain syndrome may affect 13-18% of all stroke patients. Diagnosis: Complex Regional Pain syndrome Disposition: home Condition: Stable Time 01:44 Differential Diagnosis Differential diagnosis: Likely peripheral neuropathy, cerebrovascular accident and other (CRPS, chronic pain, fibromyalgia, musculoskeletal strain) Medical Records Attestation: I reviewed the patient's medical records. Imaging Data CT scan - head: Radiologist's impression: Board-certified radiologist contacted me and there is no evidence of mass, bleed, midline shift. Discharge Plan Discharge Chief Complaint: Neuro Symptoms/Deficit Clinical Impression: Complex regional pain syndrome Patient Disposition: Home, Self-Care Time of Disposition Decision: 01:42 Condition: Good Mode of Transportation: Private Vehicle Prescriptions / Home Meds: No Action atorvastatin 40 mg tablet 40 mg PO DAILY clopidogrel 75 mg tablet 75 mg PO DAILY buspirone 10 mg tablet 10 mg PO TID escitalopram oxalate 10 mg tablet 10 mg PO DAILY aspirin 81 mg tablet,delayed release (DR/EC) 81 mg PO DAILY Print Language: Malawian Instructions: Complex Regional Pain Syndrome (DC) Additional Instructions: Thank you for your time and patience today. Thank you for also trusting me with your care and treatment. Referrals: NGHIA SALAZAR [Primary Care Provider, AUDIO VISUAL SPECIALIST] - 1 week
== END 2024-08-26 02:03 | disposition home or self-care (01) ==
PROVIDERS: Emergency Provider Emergency Medicine; PCP Nurse Practitioner
DX: G90.50 Complex regional pain syndrome I, unspecified (principal); Z86.73 Personal history of transient ischemic attack (TIA), and cerebral infarction without residual deficits; Z90.49 Acquired absence of other specified parts of digestive tract; Z90.710 Acquired absence of both cervix and uterus; Z87.891 Personal history of nicotine dependence
CPT/HCPCS: 70450; 99285; J1200; J1630; J1885

== ENCOUNTER 2025-03-01 13:48 | Outpatient (OUT) | payer BC, SELFPAY ==
--- OUTSIDE RECORDS SUMMARY | 2025-02-21 11:41 | XMS_ITS | Continuity of Care Document ---
Author Organization [facility] Address [address] [place] [address] Phone Care Team Providers Care Labor Arbitrator Hearing Office Name Role Phone Izzy Hernández COUGAR HUNTER-C Primary Care Provider Estee Blanco APRN Attending Provider Care Teams Patient Care Team Team Status: Active Member Role/Relationship Status Dates Izzy Hernández COUGAR HUNTER-C Primary Care Provider Active Patient Care Team Team Status: Inactive Member Role/Relationship Status Dates Izzy Hernández COUGAR HUNTER-C Primary Care Provider Active Start: February 21, 2025 End: February 21Trista Carneytenaaron ProviderActiveStart: February 21, 2025 End: February 21, 2025 Chief Complaint and Reason for Visit Chief Complaint Admit Date follow up February 21, 2025 3 :56pm Allergies, Adverse Reactions, Alerts Allergen Type Severity Reaction Last Updated Verified Status Comments Sulfa (Sulfonamide Antibiotics) Allergy Unknown hives,fever, throat swelling February 21, 2025 4:11pm Yes Active topiramateAllergyUnknownAnaphylaxisOctober 2024 4:11pmYesActiverash and throat swellingProtamine SulfateAllergyUnknownhivesNovember 2022 3:23pmNo Active Social History Smoking Status Status Start Date End Date Date of Observa tion Ex-smoker (finding) November 19, 2024 4:16pm Observation Status Observation Response Date of Response Legal Sex [facility] (finding) [facility] 1980 Family History Relationship Condition Age at Onset Recorded Date/T jennifer father Diabetes mellitus Unknown paternal grandfatherDiabetes mellitusUnknownpaternal grandmotherDiabetes mellitusUnknownmaternal grandmotherHypertensionUnknownCerebrovascular accident (CVA)Unknown Problems Active Problems Problem Diagnosis/Recorded Date Onset Date Stat us Migraine without aura and wi thout status migrainosus, not intractable November 20, 2024 1:13pm Unknown Active Numbness and tingling October 29, 2024 4:16pm Unknown Active Paresthesias November 20, 2024 1:13pm Unknown Activ e Cerebral infarct October 29, 2024 4:16pm Unknown Ac tive Cerebrovascular accident (CV A) due to bilateral embolism of posterior cerebral arteries November 20, 2024 1:12pm Unknown Active Medications Medication Status Dose Units Route Directions Qty Days Refills S tart Date Stop Date End Date Reason(s) Instructions Adherence Oxcarbazepine (Trileptal) 150 mg tablet Active 150 MG PO Twice daily 60 2July 2024 12:00amComplies with drug therapyAtorvastatin 40 mg tablet Vydngi16DOVFSjeysOsxo 2024 12:00amComplies with drug therapyClopidogrel 75 mg zyuboyLdctve32QNWGBnxjaGedf 2024 12:00amComplies with drug therapy Bupropion Hcl (Wellbutrin Sr) 100 mg tablet sustained-release 12 vvGienat518CIUN Every morningJuly 2024 12:00amComplies with drug therapyLorazepam (Ativan) 0.5 mg tabletActive0.5MGPOTwice daily as neededJuly 2024 12:00amComplies with drug therapyEscitalopram Oxalate (Lexapro) 10 mg gxeiewHyaaaf01ZBULTjnwk November 19, 2024 12:00amComplies with drug therapyCyclobenzaprine 5 mg tablet Chiahu2MZQFBvovu at bedtimeJuly 2024 12:00amComplies with drug therapy Pregabalin 50 mg yoeyamxAymryugktpcl91PBVJOgmag dailyJuly 2024 12:00am February 21, 2025 4:15pmAcetaminophen 325 mg xstbcbuHrygdj780ARVZUeiec 6 hours as neededJuly 2024 12:00amComplies with drug therapySitagliptin Phosphate (Januvia) 25 mg phzsnsSswijy41SMPVImknyIfew 2024 12:00amComplies with drug therapyRimegepant (Nurtec Odt) 75 mg tablet,tlohiggquenlizAxntsh50YXBH.qodJuly 2024 12:00amComplies with drug therapy Vital Signs Vital Reading Result Reference Range Collection Date/Time Heart Rate 81 /min 60-100 February 21, 025 4:12pm BP Systolic 124 mm[Hg] 100-140 February 21 025 4:12pm BP Diastolic 87 mm[Hg] 60-100 February 21 025 4:12pm Advance Directives Advance Directive Response Recorded Date/ Time Advance Directives No August 20 024 7:57am Insurance Providers Guarantor Valerie Rogers Address [address] [facility] [address]Cp[employer] Info.Home Phone: Payer Group Member ID Coverage Type Subscriber Relationship to Subscriber Effective Date Expiration Date Mario HUTCHINSON [id number] R Jarrett Id: [id number] [address] [facility] [address] Home Phone: Encounters Encounter Location(s) Arrival/Admit Date Discharge/Departure Date Discharge/Departure Disposition Provider(s) Departed Physician/ Provider Office Visit -[facility] Neurology [place] February 21, 2025 3:56pm February 21, 2025 4:40pm Discharged to home care or self care (routine discharge) Roney Mei APRN Plan of Treatment Author Estee Blanco [facility] 20[facility] 4:30pmPatient is a 44-year-old female with medical history includes obesity, GERD, migraine, diabetes mellitus type 2, syncope and tobacco use. History of CVA due to bilateral embolism of posterior cerebral arteries. Patient presented to the [facility] with right facial droop, dysarthria, and right-sided weakness in 08/2022. She was given TPA at 9:45 AM at the recommendation of the [place] stroke team, Dr Escobedo. She was transferred to [facility]. Reassessment showed NIH of 0. Patient underwent full stroke evaluation which showed bilateral thalamic infarcts. She continues to have some subtle and intermittent right side paresthesias, and more recently has had increase in neuropathic pain to her right upper and lower extremity. She reports intermittent RLE numbness with prolonged standing. This is not new but was more notable. Possible etiology would be lumbar radiculopathy. Also may be residual from her thalamic stroke. EMG of BLE on 09/06/23 was normal. She was given gabapentin for neuropathic pain previously and had little benefit. Due to her increase in symptoms, she did trial lyrica and she did not like how it made her feelI will order an electromyograph evaluation of the upper extremities to assess for nerve damage such as cervical radiculopathy, brachial plexopathy, or entrapment mononeuropathy. We did update her EMG 10/2024 and it was normal. ??We will now try some trileptal. CT scan of the brain showed possible left temporal lobe hypodensity. CTA of the head and neck did not show significant stenosis. MRI brain showed bilateral thalamic infarcts. Echocardiogram showed EF of 60-65% with PFO showing right to left shunt. S/P closure in 12/2022 Hypercoagulable study negative. She has continued on plavix and seems to be tolerating well. ?? She has a PLMD noted on PSG. No evidence of DANTE. She is no longer taking requip as she has not needed it. Symptoms are stable.??WE will consider doxepin at next visit She has migraines without aura that are well controlled. Patient was in the ER on 06/12/23 with right side weakness followed by a headache. She was evaluated for stroke with CT head that was nonacute. [place] stroke team recommended management of her headache and thought she had neurologic symptoms associated with the headache. She does report that the weakness resolved after treatment of her headache for the most part so leading differential is a complicated migraine. She continues to have some paresthesias. Repeat CT nonacute. She states she can not have an MRI with her PFO closure. Headaches are improved. She is on Nurtec for abortive and preventative therapy. She is no longer taking flexeril as it was sedating, she did not try 1/2 tab and should. She is no longer taking trileptal, as noted above we are giving this another try. She had one migraine the nurtec did not abort and this is rare. ?? . . . Plan: Start Trileptal 150 mg at bedtime, add in an am dose if needed Consider Doxepin for PLMD at next visit Discontinue Lyrica 50mg PO BID for neuropathic pain due to s/e Continue Flexeril 5mg PO at bedtime for muscle spasms, she will try 1/2 tab She will first add in the Trileptal and then try the Flexeril Continue statin and Plavix for secondary stroke prevention Continue Nurtec 75mg for migraine prevention and abortive therapy Consider cervical spine MRI pending course The diagnosis was all discussed with the patient.?? All questions were answered and they agreed with the treatment plan.?? Patient will call if there are any new issues or questions. Future Tests Future scheduled test information is unavailable Pending Tests Pending diagnostic test information is unavailable Future Visits Future appointment information is unavailable Future Procedures Future procedure information is unavailable Future Medications Future medication information is unavailable Patient Instructions Patient instructions are unavailable
--- NOTE | 2025-03-01 13:52 | MM_ITS ---
Patient Name: JOHNIE KAMARA MR#: [id number] : 1980 Exam Date: 03/01/2025 Ordering Doctor: NGHIA SALAZAR . RADIOLOGY REPORT PROCEDURE: MM TOMOSYNTHESIS SCREENING BI COMPARISON: MM TOMOSYNTHESIS SCREENING BI, 09/05/2023. MG MAMM SCREEN 3D JOSE CAD, 07/01/2022. INDICATIONS: Screening Calculator Name NCI Breast Cancer Risk Assessment Tool 5 Year Breast Cancer Risk 0.60% Lifetime Breast Cancer Risk 8.90% Personal Breast Cancer No Personal Ovarian Cancer No Treatments None Family Cancers None LOCATION: [facility] BREAST COMPOSITION: The breasts are heterogeneously dense, which may obscure small masses. FINDINGS: DIAGNOSTIC CATEGORY 1--NEGATIVE. RECOMMENDATIONS: ROUTINE MAMMOGRAM AND CLINICAL EVALUATION IN 12 MONTHS. Dictated by: Tito Enamorado MD on 03/01/2025 at 15:34 Approved by: Tito Enamorado MD on 03/01/2025 at 15:36
--- OUTSIDE RECORDS SUMMARY | 2025-03-01 13:52 | XMS_ITS | Clinical Summary ---
Author Organization [employer] [facility] Address [id number] [address] [place] [address] Care Team Providers Care Human Resource Adviser Name Role Phone Pieter Perez MD Primary Care Provider [phone] Allergies Active AllergyReactionsCriticalityNoted MoijJnjgcqwoOngakcnVlnzp74/25/2023 Diphenhydramine JkvStgqgliNcmitq26/16/8679YohwfcfuhcraCtoonnmKnpakr54/16/2023 FcpymfgteFdqwl62/18/2023Sulfa (Sulfonamide Antibiotics)ZklijhqecjxXchx32/07/2020 HijyvcbxpjSjih47/26/2022 Medications * This document contains information received from the source organization and may not represent a complete record from that organization. MedicationSigDispense QuantityRefillsLast FilledStart DateEnd DateStatus calcium carbonate (TUMS) 200 mg (500 mg) chewable tablet Chew 1 tablet (200 mg total) and swallow daily as needed.Active acetaminophen (TYLENOL) 325 mg tablet Take 2 tablets (650 mg total) by mouth every 4 (four) hours as needed for headaches.ctive clopidogreL (PLAVIX) 75 mg tablet Take 1 tablet (75 mg total) by mouth in the morning.Active atorvastatin (LIPITOR) 40 mg tablet Take 1 tablet (40 mg total) by mouth in the morning.12/08/2022ctive ondansetron ODT (ZOFRAN ODT) 4 mg disintegrating tablet Indications:Intractable chronic migraine with aura and without status migrainosusDissolve 1 tablet (4 mg total) on tongue 3 (three) times a day as needed for nausea or vomiting. 30 tablet ctive escitalopram (LEXAPRO) 20 mg tablet Indications:Severe episode of recurrent major depressive disorder, without psychotic features (CMS-HCC)Take 1 tablet (20 mg total) by mouth in the morning. 90 tablet 4Active buPROPion XL (WELLBUTRIN XL) 300 mg 24 hr tablet Indications:Severe episode of recurrent major depressive disorder, without psychotic features (CMS-HCC)Take 1 tablet (300 mg total) by mouth in the morning. 90 tablet 5Active OXcarbazepine (TRILEPTAL) 150 mg tablet Take 1 tablet (150 mg total) by mouth in the morning and 1 tablet (150 mg total) before bedtime.Active Active Problems ProblemNoted DateDiagnosed DateGeneralized anxiety ebzhhrpk16/12/2024Sequela, post-btmphs4704/14/2023Nicotine oekuohuhuf25/21/2023FO (patent foramen ovale) 11/29/2022Stroke (cerebrum)09/16/2022Recurrent major depressive disorder, in full lrhnoqxba48/26/2022uicidal uyaqslci03/26/2022History of blood transfusion 10/24/2012Gestational diabetesAMA (advanced maternal age) multigravida 35+ History of gestational diabetes mellitus (GDM)History of section Encounters * This document contains information received from the source organization and may not represent a complete record from that organization. DateTypeDepartmentCare UediOaofngbcops41/25/2025Travelfrom Last 3 Months Immunizations No known immunizations Family History Medical HistoryRelationNameCommentsDiabetesFatherKidney diseaseFatherDiabetes Maternal GrandfatherfrankHypertensionMaternal GrandmothermaryannStrokeMaternal GrandmothermaryannDiabetesPaternal GrandfatherjacobRelationNameStatusComments BrotherAliveFatherAliveMaternal GrandfatherfrankDeceasedMaternal Grandmother maryannAliveMotherAlivePaternal GrandfatherjacobDeceasedPaternal Grandmother AliveSister 1AliveSister 2AliveSister 3AliveSister 41/2AliveSister 51/2Alive Social History Tobacco UseTypesPacks/DayYears UsedDateSmoking Tobacco: Some DaysCigarettes0.520 Smokeless Tobacco: Never Tobacco Cessation:Ready to Q uit: Not Asked; Counseling Given: Not Answered Alcohol UseStandard Drinks/WeekCommentsNot Currently0 (1 standard drink = 0.6 oz pure alcohol)AUDIT-CAnswerDate RecordedQ1: How often do you have a drink containing alcohol?2-4 times a month09/16/2022Q2: How many drinks containing alcohol do you have on a typical day when you are drinking?1 or Q3: How often do you have six or more drinks on one occasion?Never09/16/2022HQ-2 AnswerDate RecordedTotal Efhkd6113ChildcareAnswerDate RecordedChildcare Dwigefn5610/04/2018EmploymentAnswerDate MyneqchcXvalakvuphXspunri59/12/2019Hunger ScreeningAnswerDate RecordedWithin the past 12 months we worried whether our food would run out before we got money to buy more.Never True10/11/2024Within the past 12 months the food we bought just didn't last and we didn't have money to get more.Never True10/11/2024Purpose - LifeAnswerDate RecordedPurpose and direction in llqyWrypupv75/11/2021CommentsNoSex and Gender Information ValueDate RecordedSex Assigned at CdomxQdkzoc97/03/2020 6:14 PM EDTLegal Sex Xvjdym3011/28/2014 12:02 PM EDTGender RafthkvwBpnbzy19/03/2020 6:14 PM EDTSexual TkfalyzjjviMslyevqk80/03/2020 6:14 PM EDT Last Filed Vital Signs Vital SignReadingTime TakenCommentsBlood Jftssbas954/7006 2:44 PM EDT Kmzgu367310/11/2024 2:44 PM QLNBoccaeofscp82.9 ??C (98.4 ??F)01/10/2023 9:52 AM EDTRespiratory Hpjn223801/10/2023 2:15 PM EDTOxygen Amimwpemgi62%01/17/2023 10:07 AM EDTInhaled Oxygen Concentration--Mbskux93.3 kg (210 lb)10/11/2024 2:44 PM FMBHvnxjn859.9 cm (4' 11 )07/25/2023 4:27 PM EDTBody Mass Index42.4104 4:27 PM EDT Plan of Treatment Health MaintenanceDue DateLast DoneCommentsTobacco Cvikgbpysz14/27/1983DTaP,Tdap and Td Vaccines (1 - Tdap)2001Depression Fgdxrkxig67/ Influenza Dipfawz9712/24/2024dult BMI Ijwuvceec10Tobacco Ybovakpiv87 Medical Devices ImplantedTypeAreaManufacturerDevice IdentifierShelf Expiration DateModel / Serial / LotOccluder Cv 30mm Sept 2 Disc Slf Xpd Amplzr Ntnl Plstr 45d - [id number] Implanted:Qty: 1 on 01/10/2023 by [facility] [place] [facility] [id number] / / [id number] Insurance Advance Directives * Full Code (Latest Code Status on File) Date ActivatedDate InactivatedComments09/16/2022 1:22 PM09/19/2022 6:52 PM Care Teams Team MemberRelationshipSpecialtyStart DateEnd Date Pieter Perez MD [address] [place] [address] [facility]12/31/22
--- OUTSIDE RECORDS SUMMARY | 2025-03-01 13:52 | XMS_ITS | Clinical Summary ---
Author Organization [facility] Address [address] [place] [address] Care Team Providers Care Venetian Blind Assembler Name Role Phone Craig Laird MD Unavailable [phone] Martha Toney Unavailable Estee Akhtar Unavailable Pieter Perez MD Primary Care Provider [phone] Allergies Active AllergyReactionsCriticalityNoted DateCommentsAspirinHives,Itching,Rash, QoktzuhmDdj40/25/2023rotamineHives,Itching,UxlkEif8801/10/2023Sulfa Antibiotics BolaulrbvlmIouh35/11/0307VieiszaxmtIfwqlmatdpmUbsk33/26/2022 Medications MedicationSigDispense QuantityRefillsLast FilledStart DateEnd DateStatus acetaminophen (Tylenol) 325 MG tablet Take 650 mg by mouth every 4 (four) hours if iqyozs4709/19/2022ctive busPIRone (Buspar) 10 MG tablet Take 10 mg by mouth 3 (three) times a day as wdknew7909/28/2022ctive escitalopram (Lexapro) 10 MG tablet Take 10 mg by mouth in the morning.02/11/2023ctive escitalopram (Lexapro) 20 MG tablet TAKE 1 TABLET BY MOUTH ONCE EVERY ZGSGCCI0805/24/2022ctive ibuprofen 800 MG tablet Take 800 mg by mouth 3 (three) times a day as hgzpcl4009/07/2022ctive LORazepam (Ativan) 0.5 MG tablet Take 0.5 mg by mouth 2 (two) times a day as needed for ryifzeb0303/24/2023ctive SITagliptin (Januvia) 25 MG tablet as directed OrallyActive verapamil SR (Calan SR) 120 MG ER tablet Take 120 mg by mouth in the morning.03/13/2023ctive buPROPion SR (Wellbutrin SR) 100 MG 12 hr tablet Take 100 mg by mouth Daily in the Morning Do not crush, chew, or split.Active nicotine (Nicoderm, Step 1) 21 MG/24HR patch Place 1 patch on the skin 1 (one) time each day at the same timeActive OXcarbazepine (Trileptal) 150 MG tablet Indications:ParesthesiaTake 1 tablet (150 mg) by mouth in the morning and 1 tablet (150 mg) before bedtime. 60 tablet 5Active pregabalin (Lyrica) 50 MG capsule Indications:Right arm pain,ParesthesiaTake 1 capsule (50 mg) by mouth in the morning and 1 capsule (50 mg) before bedtime. 60 capsule 5Active Rimegepant Sulfate (Nurtec) 75 MG tablet dispersible Indications:Migraine without aura and without status migrainosus, not intractableTake every other day for headache prevention. You can take 1 tablet PRN on days when you have not already taken the medication if you have a severe headache. Do not exceed 1 tablet in 24 hours. 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 (HCC)Take 1 tablet (75 mg) by mouth Daily 90 tablet 6Active cyclobenzaprine (Flexeril) 5 MG tablet Indications:Migraine without aura and without status migrainosus, not intractableTake 1 tablet (5 mg) by mouth at bedtime 30 tablet 5Active atorvastatin (Lipitor) 40 MG tablet Indications:Cerebrovascular accident (CVA) due to thrombosis of left middle cerebral artery (HCC)TAKE 1 TABLET BY MOUTH EVERY DAY IN THE MORNING 30 tablet 5Active Active Problems ProblemNoted DateDiagnosed XgttCamchn57/11/2481Bgikxjydqzi24/11/2024 Overview (09/04/2023): She does have signs and symptoms of a sleep disorder with persistent fatigue, snoring, and recumbent shortness of breath and has not yet been contacted to schedule sleep study that was ordered. I will check on the status of this. PLMD (periodic limb movement disorder)08/04/2023erebrovascular accident (CVA) due to bilateral embolism of posterior cerebral adqmoftl18/11/2024 Overview (09/04/2023): Patient is a 42-year-old female who is being seen in outpatient neurological consultation followinga stroke on 09/16/22. Medical history includes obesity, GERD, migraine, diabetes mellitus type 2, syncope and tobacco use. Patient presented to the [facility] with right facial droop, dysarthria, and right-sided weakness. Last known well was at 7:50 AM. NIH score was 11. CT scan of the brain showed possible left temporal lobe hypodensity. CTA of the head and neck did not show significant stenosis. She was given TPA at 9:45 AM at the recommendation of the [place] stroke team, Dr Escobedo. She was transferred to [facility]. Reassessment showed NIH of 0. Patient underwent full stroke evaluation which showed bilateral thalamic infarcts. Echocardiogram showed EF of 60-65% withPFO showing right to left shunt. Hypercoagulable study negative. She is currently undergoing cardiac evaluation with event monitor and developed a rash a few days after having this on. She has since removed this and reports the rash has improved. She has continued on plavix and seems to be tolerating well. She did also develop mild lower extremity swelling. She also had upper extremity swelling, which has improved. CBC, CMP, UA 10/13/2022 were unremarkable. Glucose 168, TSH 1.363, albumin 3.3, NT proBNP 34. I advised she trial compression stockings. DATNE (obstructive sleep apnea)08/04/20231869Njayffh50/11/2024Migraine without aura and without status migrainosus, not ehquymhvfvh53/11/2024 Overview (09/04/2023): Patient was in the ER on 06/12 with right side weakness followed by a headache. She was evaluated for stroke with CT head that was nonacute. [place] stroke team recommended management of her headache and thought she had neurologic symptoms associated with the headache. She does report that the weakness resolved after treatment of her headache for the most part so leading differential is a complicated migraine. She continue to have some paresthesias in her RUE. Given her history I will order a repeat CT head to look for evolution of stroke not seen on initial imaging. She states she can not havean MRI with her PFO closure. She is scheduled for repeat Echo to insure the closure was successful.She is on Nurtec and states headaches are very rare. Hx of stroke associated with blood clotting tdtikwtx53/11/2023 Family History Medical HistoryRelationNameCommentsDiabetesFatherHypertensionMaternal GrandmotherStrokeMaternal GrandmotherMigrainesOtherDiabetesPaternal Grandfather DiabetesPaternal GrandmotherRelationNameStatusCommentsFatherMaternal Grandmother OtherSiblingsPaternal GrandfatherPaternal Grandmother Social History Tobacco UseTypesPacks/DayYears UsedDateSmoking Tobacco: FormerCigarettesAlcohol UseStandard Drinks/WeekCommentsYes0 (1 standard drink = 0.6 oz pure alcohol) Caffeine intake: more than 4 cups per dayAUDIT-CAnswerDate RecordedQ1: How often do you have a drink containing alcohol?Monthly or less09/04/2023Q2: How many drinks containing alcohol do you have on a typical day when you are drinking?1 or Q3: How often do you have six or more drinks on one occasion?Never 09/04/2023CommentsUnknownSex and Gender InformationValueDate RecordedSex Assigned at BirthNot on fileLegal HcfTnmirh53/15/2023 11:47 PM EDTGender IdentityNot on fileSexual OrientationNot on file Last Filed Vital Signs Vital SignReadingTime TakenCommentsBlood Nuquykgl266/8809/05/2024 3:40 PM EDT Hoxay255709/05/2024 3:40 PM EDTTemperature--Respiratory Nkec592809/05/2024 3:40 PM EDTOxygen Neefnmmbva04%09/05/2024 3:40 PM EDTInhaled Oxygen Concentration-- Suvbql51.9 kg (207 lb)09/05/2024 3:40 PM DNPOaphut451.9 cm (4' 11 )09/05/2024 3:40 PM EDTBody Mass Index41.8109/05/2024 3:40 PM EDT Plan of Treatment Not on file Insurance Care Teams Team MemberRelationshipSpecialtyStart DateEnd Date Pieter Perez MD [address] [id number] PCP - GeneralFamily Dwnwbyfg57/29/24 Craig Laird MD Referring PhysicianNeurology07/12/23 Martha Toney PA Physician NogrjiytlMqyywqwyf84/29/24 Estee Akhtar PA [address] [place] [address] Physician RedguqypvSdlebafem28/29/24
--- OUTSIDE RECORDS SUMMARY | 2025-03-01 13:54 | XMS_ITS | CCD ---
Author Organization [facility] Care Team Providers Care Healthcare Facility Administrator Name Role Phone PHYSICIAN, DEFAULT Admitting Unavailable PHYSICIAN, DEFAULT Attending Unavailable Mary Al Unavailable Keri Urbina Unavailable RAVEN, DR DELUNA Primary Care Unavailable DIAB ., KYA Attending Unavailable DIAB ., KAY Admitting Unavailable DEE, MANPREET Consulting Unavailable DIAB ., KAY Consulting Unavailable RABIA MARTINEZ Consulting Unavailable KATVÍCTOR, ARISTIDES Burroughs Attending Unavailable VLADIMIR, ARISTIDES Burroughs Admitting Unavailable RAHEEM, DR MANPREET Raymundo Consulting Unavailable RAVEN, DR DELUNA Primary Care Unavailable MATY, DR [place] Merchant Consulting Unavailable KATARISTIDES RENEE Consulting Unavailable COATSJASON Consulting Unavailable RAVEN, DR DELUNA Attending Unavailable HOUSE, DR DELUNA Consulting Unavailable [place], DR DELUNA Primary Care Unavailable [place], DR DELUNA Admitting Unavailable HOUSE, DR DELUNA Consulting Unavailable [place], DR DELUNA Primary Care Unavailable HOUSE, DR DELUNA Admitting Unavailable [place], DR DELUNA Attending Unavailable ZIEBER, DR [place] Merchant Consulting Unavailable UNRULY ., DR REYES Attending Unavailable UNRULY ., DR REYES Consulting Unavailable UNRULY ., DR REYES Admitting Unavailable HOUSE, DR DELUNA Primary Care Unavailable Silva Bryant Unavailable Izzy Hernández Primary Care Physician [phone] Regina Perez MD Primary Care Provider [phone] Oh Laird MD Unavailable Martha Salguero Unavailable Estee Monreal Unavailable Regina Perez MD Primary Care Provider [phone] JESÚS LANTIGUA Attending Unavailable JESÚS LANTIGUA Admitting Unavailable Izzy Hernández Attending Unavailable Izzy Hernández Attending Unavailable EdgarIzzy Attending Unavailable Edgar, Izzy Rivera Attending Unavailable Edgar, Izzy Rivera Attending Unavailable EdgarIzzy Admitting Unavailable Edgar, Izzy Rivera Attending Unavailable ROSS, REGINA E Referring Unavailable ROSS, REGINA E Primary Care Unavailable ROSS, REGINA E Referring Unavailable ROSS, REGINA E Primary Care Unavailable ROSS, REGINA E Referring Unavailable ROSS, REGINA E Primary Care Unavailable Oh Laird MD Unavailable Unavailable MARTHA TONEY Attending Unavailable WINDNAJESÚS LOCKE Attending Unavailable WINDNAJESÚS LOCKE C Attending Unavailable Qing Jaffe DO Attending Provider Edgar PRODUCTION SUPERVISOR TRAINEE-CIzzy Primary Care Provider Estee Blanco APRN Attending Provider SUMMER ASH Attending Unavailable ROSS, REGINA E Referring Unavailable ROSS, REGINA E Primary Care Unavailable SUMMER ASH Attending Unavailable ROSS, REGINA E Referring Unavailable ROSS, REGINA E Primary Care Unavailable SUMMER ASH Attending Unavailable ROSS, REGINA E Referring Unavailable ROSS, REGINA E Primary Care Unavailable MIHIRSUMMER NICHOLE Attending Unavailable ROSS, REGINA E Referring Unavailable ROSS, REGINA E Primary Care Unavailable Edgar, Izzy Rivera Attending Unavailable Edgar, Izzy Rivera Attending Unavailable Edgar, Izzy Rivera Attending Unavailable WINDNAGEL, JESÚS Admitting Unavailable WINDNAGEL, JESÚS Attending Unavailable EdgarIzzy Admitting Unavailable EdgarIzzy Attending Unavailable Edgar PRODUCTION SUPERVISOR TRAINEE-CIzzy Primary Care Provider [phone] Estee Blanco APRN Attending Provider Allergies Allergy ClassificationReported Allergen(s)Allergy TypeDate of OnsetReaction(s) Facility (2 sources)sulfaSALAzineDrug Allergyhives,fever, throat swellingNort [place] Other (1 source)Sulfonamides (Antibiotic)Drug allergy (disorder)65-20-3058Gzm [facility] (3 sources)topiramate; Translations: [Topamax]Drug Anbquby24-72-3333Pbf [facility] (10 sources)Protamine Sulfate (HALF-WAY); Translations: [protamine]Drug Allergy 09-93-5142uizjh, Itching, RashDay[facility] (8 sources)Substance with sulfonamide structure and antibacterial mechanism of action (substance)Drug zotyily34-58-9906PaxorshorjpRqwsw [place] Other (6 sources)Aspirin; Translations: [aspirin]Drug Wcnlqai14-59-2844Yeyhsv-MnbnkDayton [facility]'S Hospital (4 sources)Sulfonamides (Antibiotic); Translations: [sulfa drugs]Drug allergy Anaphylaxis (disorder)[facility] (6 sources)topiramate; Translations: [topiramate]Drug Lpfmeii57-03-8600 Anaphylaxis (disorder)[facility] Comment on above:rash and throat swelling (7 sources)Aluminum aspirinDrug Ucryygg06-25-1928Kuhss, Itching, Rash, Swelling [facility] (7 sources)TopiramatePropensity to adverse fvdnsreue38-31-9308YtugnngtiioKSRG Healthcare (4 sources)Protamines; Translations: [protamine]Drug Wlgeoqe51-77-6226XpagvoUniversity Hospitals [facility]ar[facility] Repository (2 sources)diphenhydrAMINE; Translations: [DIPHENHYDRAMINE HCL]Drug Allergy 30-67-2943WokYrqkzx Repository (2 sources)Promethazine; Translations: [PROMETHAZINE]Drug Nzwykgv42-50-0582 [facility] Repository (5 sources)Sulfonamides (Antibiotic); Translations: [SULFA (SULFONAMIDE ANTIBIOTICS)]Propensity to adverse reactions to drug (disorder)10-30-2019 hives,fever, throat swellingProMedica Repository (3 sources)Protamine SulfateAllergy to lsulkopdf79-42-8482iuabqUuscjkfayACMC Healthcare System Medications Current Medications MedicationDrug Class(es)DatesSig (Normalized)Sig (Original)acetaminophen 325 mg oral capsule (8 sources)Start: 59-62-6971gnnk 1 capsule by mouth every six hours as needed Acetaminophen 325 mg capsule Active 325 MG PO Every 6 hours as needed November 19, 2024 12:00am Complies with drug therapyStart: 47-93-7703ovxc 2 tablets by mouth every four hours as neededacetaminophen (Tylenol) 325 MG tablet Take 650 mg by mouth every 4 (four) hours if needed 09/19/2022 Mxcgyjhtl635222 200 actuat albuterol 0.09 mg/actuat metered dose inhaler (1 source)beta2-Adrenergic AgonistStart: 36-11-6723eioy 2 puff(s) by inhalation every four hours as neededAlbuterol Sulfate HFA 108 (90 Base) MCG/ACT 2 puffs as needed Inhalation every 4 hrs Feb, Activeatorvastatin 40 mg oral tablet (11 sources)HMG-CoA Reductase InhibitorStart: 14-77-0423ufvi 1 tablet by mouth once dailyAtorvastatin 40 mg tablet Active 40 MG PO Daily November 19, 2024 12:00am Complies with drug therapyStart: 10-18-2022 End: 59-66-4390pedy 1 tablet by mouth in the morningatorvastatin (Lipitor) 40 MG tablet Indications: 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 90 tablet 3 09/08/2023 09/07/2024 Rshxpw88 hr buPROPion hydrochloride 100 mg extended release oral tablet (10 sources)AminoketoneStart: 95-79-9193pgik 1 tablet by mouth once daily in the morningBupropion Hcl (Wellbutrin Sr) 100 mg tablet sustained-release 12 hr Active 100 MG PO Every morning November 19, 2024 12:00am Complies with drug therapyStart: 21-69-9512qyeg 1 tablet by mouth once dailybuPROPion 150 mg/24 hours XL Tab 150 mg = 1 tab(s), Oral, Daily, Refills(s) 0 Start Date: 06/07/23 St atus: Orderedtake 1 tablet by mouth once daily in the morningbuPROPion SR (Wellbutrin SR) 100 MG 12 hr tablet Take 100 mg by mouth Daily in the Morning Do not crush, chew, or split. ActivebusPIRone hydrochloride 10 mg oral tablet (7 sources)Start: 80-21-9414odsu 1 tablet by mouth three times daily as needed busPIRone (Buspar) 10 MG tablet Take 10 mg by mouth 3 (three) times a day as needed 09/28/2022 Activeclopidogrel 75 mg oral tablet (15 sources)P2Y12 Platelet InhibitorStart: 10-18-2022 End: 47-94-3597wnjw 1 tablet by mouth once dailyClopidogrel 75 mg tablet Active 75 MG PO Daily November 19, 2024 12:00am Complies with drug therapycyclobenzaprine hydrochloride 5 mg oral tablet (3 sources)Muscle RelaxantStart: 05-96-7464wywa 1 tablet by mouth once daily at bedtimeCyclobenzaprine 5 mg tablet Active 5 MG PO Daily at bedtime November 19, 2024 12:00am Complies with drug therapyStart: 98-21-8035msnd 1 tablet by mouth at bedtimecyclobenzaprine (Flexeril) 5 MG tablet Indications: Migraine without aura and without status migrainosus, not intractable (CMS/HCC) Take 1 tablet (5 mg) by mouth at bedtime 30 tablet 2 09/06/2024 ActiveStart: 61-56-2712gfcn 1 tablet by mouth at bedtimecyclobenzaprine (Flexeril) 5 MG tablet Indications: Migraine without aura and without status migrainosus, not intractable (CMS/HCC) Take 1 tablet (5 mg) by mouth at bedtime 30 tablet 2 09/06/2024 Active dextromethorphan hydrobromide 15 mg / guaiFENesin 400 mg / pseudoephedrine hydrochloride 60 mg oraltablet (2 sources)alpha-Adrenergic Agonist, Uncompetitive I-zocnlr-S-aspartate Receptor Antagonist, Sigma-1 AgonistStart: 59-88-5561ouhl 4 tablets by mouth every twenty-four hours as neededCapmist DM 60-15-400 MG as needed Orally every 4-6 hours as needed, max 4 tablets in 24 hours for 5days Feb, ActiveStart: 32-14-5359siqi 1 tablet by mouth every four hoursCapmist DM 60-15-400 MG 1 tablet as needed Orally every 4 hours for 10 days Feb, Active escitalopram 10 mg oral tablet (20 sources)Serotonin Reuptake InhibitorStart: 24-12-1576blue 1 tablet by mouth once dailyEscitalopram Oxalate (Lexapro) 10 mg tablet Active 10 MG PO Daily November 19, 2024 12:00am Complies with drug therapyStart: 02-11-2023 End: 42-61-7794fxze 1 tablet by mouth in the morningescitalopram (Lexapro) 10 MG tablet Take 10 mg by mouth in the morning. 02/11/2023 ActiveStart: 05-24-2022 take 1 tablet by mouth once daily in the morningescitalopram (Lexapro) 20 MG tablet TAKE 1 TABLET BY MOUTH ONCE EVERY MORNING 05/24/2022 Activeibuprofen 800 mg oral tablet (7 sources)Nonsteroidal Anti-inflammatory DrugStart: 60-25-0711xaah 1 tablet by mouth three times daily as neededibuprofen 800 MG tablet Take 800 mg by mouth 3 (three) times a day as needed 09/07/2022 ActiveLORazepam 0.5 mg oral tablet (8 sources)BenzodiazepineStart: 71-24-3276nvcq 1 tablet by mouth twice daily as neededLorazepam (Ativan) 0.5 mg tablet Active 0.5 MG PO Twice daily as needed November 19, 2024 12:00am Complies with drug therapyStart: 66-18-8784whny 1 tablet by mouth twice daily as needed for anxietyLORazepam (Ativan) 0.5 MG tablet Take 0.5 mg by mouth 2 (two) times a day as needed for anxiety 03/24/2023 Auzotc63 hr nicotine 0.875 mg/hr transdermal system (7 sources)Cholinergic Nicotinic Agonistnicotine (Nicoderm, Step 1) 21 MG/24HR patch Place 1 patch on the skin 1 (one) time each day at thesame time Active nystatin 942465 unt/ml topical cream (1 source)Polyene AntifungalStart: 23-57-5486wbkzxgrx Top 100,000 units/g Crm 15 gram 1 marilin, Topical, BID, 15 gram, Refill(s) 0, [facility]/pharmacy #[id number], 152.6, cm, 02/28/24 8:30:00 EST, Height/Length Dosing, 92.5, kg, 02/28/24 8:30:00 EST, Weight Dosing Start Date: 02/28/24 Status: OrderedOXcarbazepine 150 mg oral tablet (5 sources)Anti-epileptic AgentStart: 88-05-6367wcju 1 tablet by mouth twice dailyOxcarbazepine (Trileptal) 150 mg tablet Active 150 MG PO Twice daily 60 2 November 19, 2024 12:00am Complies with drug therapyStart: 82-31-5931qgpm 1 tablet by mouth in the morningOXcarbazepine (Trileptal) 150 MG tablet Indications: Paresthesia Take 1 tablet (150 mg) by mouth inthe morning and 1 tablet (150 mg) before bedtime. 60 tablet 2 05/30/2024 Activerimegepant 75 mg disintegrating oral tablet (14 sources)Start: 15-81-0739xjcq 1 tablet by mouth every other dayRimegepant (Nurtec Odt) 75 mg tablet,disintegrating Active 75 MG PO .qod November 19, 2024 12:00am Complies with drug therapyStart: 08-18-2023 End: 43-44-5036Xlmokvwvhw Sulfate (Nurtec) 75 MG tablet dispersible Indications: Migraine without aura and withoutstatus migrainosus, not intractable (CMS/HCC) Take every other day for headache prevention. You cantake 1 tablet PRN on days when you have not already taken the medication if you have a severe headache. Do not exceed 1 tablet in 24 hours. 20 tablet 2 02/21/2024 09/05/2024 Discontinued (Reorder)Start: 24-97-2000ygfq 1 tablet by mouth every 30 days as neededNurtec ODT 75 mg oral tablet, disintegrating 75 mg = 1 tab(s), DISSOLVE 1 TABLET ON THE TONGUE NEEDED - TO LAST 30 DAYS Start Date: 08/17/23 Status: Ordered SITagliptin 25 mg oral tablet (10 sources)Dipeptidyl Peptidase 4 InhibitorStart: 39-74-6774ncpa 1 tablet by mouth once dailySitagliptin Phosphate (Januvia) 25 mg tablet Active 25 MG PO Daily November 19, 2024 12:00am Complieswith drug therapySITagliptin (Januvia) 25 MG tablet as directed Orally ActiveJanuvia Activeverapamil hydrochloride 120 mg extended release oral tablet (7 sources)Calcium Channel BlockerStart: 77-09-3124crmh 1 tablet by mouth in the morningverapamil SR (Calan SR) 120 MG ER tablet Take 120 mg by mouth in the morning. 03/13/2023 Active Completed/Discontinued Medications MedicationDrug Class(es)DatesSig (Normalized)Sig (Original)fluconazole 150 mg oral tablet (1 source)Azole AntifungalStart: 33-63-4085sqfb 4 tablets by mouth onceDiflucan 150 mg Tab 150 mg = 1 tab(s), Oral, Once, take 1 tab on day one and 1 tabon day four, # 2 tab(s), Refills(s) 1, Pharmacy: [facility]/pharmacy #[id number], 152.6, cm, 02/28/24 8:30:00 EST, Height/Length Dosing, 92.5, kg, 02/28/24 8:30:00 EST, Weight Dosing Start Date: 02/28/24 Status: Orderedpregabalin 50 mg oral capsule (3 sources)Start: 11-19-2024 End: 43-69-9852wtij 1 capsule by mouth twice dailyPregabalin 50 mg capsule Discontinued 50 MG PO Twice daily November 19, 2024 12:00am February 21, 2025 4:15pmStart: 67-95-6281dahp 1 capsule by mouth in the morningpregabalin (Lyrica) 50 MG capsule Indications: Right arm pain , Paresthesia Take 1 capsule (50 mg) b y mouth in the morning and 1 capsule (50 mg) before bedtime. 60 capsule 2 09/05/2024 ActiverOPINIRole 0.5 mg oral tablet (10 sources)Nonergot Dopamine AgonistStart: 02-21-2024 End: 42-02-1257ucfz 1 tablet by mouth at bedtimerOPINIRole (Requip) 0.5 MG tablet Indications: PLMD (periodic limb movement disorder) Take 1 tablet(0.5 mg) by mouth at bedtime 90 tablet 3 02/21/2024 09/05/2024 Discontinued (Other) Problems Active Problems Problem ClassificationProblemDateDocumented DateEpisodic/ChronicAcute cerebrovascular disease (20 sources)Cerebral infarction, unspecified; Translations: [Cerebrovascular accident]Onset: 380022-81-4343YoslhgdDrmfw cerebrovascular disease (1 source)NIHSS score 11; Translations: [NIHSS SCORE 11]Onset: 09-20-2022 EpisodicAnxiety disorders (1 source)Generalized anxiety disorder; Translations: [Generalized anxiety disorder]Onset: 44-06-0467WcwhsuvPhwahlpb mellitus without complication (1 source)Type 2 diabetes mellitus without complications; Translations: [TYPE 2 DM WITHOUT COMPLICATIONS]Onset: 22-09-6552BrqhowgHrhozdor mellitus without complication (2 sources)High hemoglobin A1c -95-7685JtnpeaeqPabyhvuhzh disorders (1 source)Gastro-esophageal reflux disease without esophagitis; Translations: [GERD WITHOUT ESOPHAGITIS]Onset: 85-76-3635TmnadcxJpjuazyv; including migraine (12 sources)Migraine without aura, not refractory ; Translations: [Migraine without aura, not intractable, without status migrainosus]Onset: 08-04-2023 46-51-4724SjidbsgRvtnoab and fatigue (2 sources)Yguzefh55-62-7158ShcetbrwRdvu disorders (6 sources)Bipolar disorder; Translations: [Recurrent major depressive episodes, moderate ]Onset: 400531-11-5435JyvnqrzPjbpfsj (1 source)Lsmgysftmim44-13-5313NuwovbtrOcfef aftercare (1 source)manager long term care (current) use of insulin; Translations: [RETIREMENT CURRENT USE OF INSULIN]Onset: 56-16-9261QlbqsbufGmkau aftercare (1 source)manager long term care (current) use of aspirin; Translations: [DATA WAREHOUSING MANAGER CURRENT USE OF ASPIRIN]Onset: 45-46-6573AkvoqgajRdtpo connective tissue disease (3 sources)Facial weakness; Translations: [FACIAL WEAKNESS]Onset: 09-16-2022 EpisodicOther connective tissue disease (2 sources)Pain in right arm; Translations: [Pain in right arm]09-05-2024 EpisodicOther lower respiratory disease (2 sources)Syrmo30-47-2507EvtjtsdbRwrem nervous system disorders (3 sources)Paresthesia; Translations: [Paresthesia of skin]75-22-2765Vvnmocul Other nervous system disorders (3 sources)Numbness and tingling sensation of skin; Translations: [Anesthesia of skin]58-74-3765McnyfqweJztzk nutritional; endocrine; and metabolic disorders (1 source)Obesity, unspecified; Translations: [OBESITY UNSPECIFIED]Onset: 46-32-3355PqwmuzaGtxcp nutritional; endocrine; and metabolic disorders (2 sources)Body mass index 40+ - severely -00-9916OrihrgrStfdt nutritional; endocrine; and metabolic disorders (7 sources)Obesity; Translations: [Obesity, unspecified]Onset: 08-04-2023 84-96-9281AljsdoyIxgiy nutritional; endocrine; and metabolic disorders (2 sources)Body mass index 30+ - qsorxuf86-36-0841TlfnjuvKzpcs upper respiratory disease (2 sources)Seasonal -55-1006UnpefwdYioly upper respiratory infections (2 sources)Kjtlhndee82-02-1071WwnruwnRjywe upper respiratory infections (1 source)Acute upper respiratory infection, unspecifiedEpisodicOtitis media and related conditions (2 sources)Otitis lezdp66-57-0915ScvjbpyzBkyzmayf codes; unclassified (7 sources)Hypersomnia; Translations: [Hypersomnia, unspecified]Onset: 496857-16-8521MloaxquIhblfbfd codes; unclassified (6 sources)Periodic limb movement disorder; Translations: [Periodic limb movement disorder]Onset: 524856-04-8714MqjtvdqXngtsoxo codes; unclassified (7 sources)Obstructive sleep apnea syndrome; Translations: [Obstructive sleep apnea (adult) (pediatric)]Onset: 263925-18-8103VinjpsyEnaeldfl codes; unclassified (5 sources)Periodic leg movements of sleep ; Translations: [Periodic limb movement disorder]Onset: 098192-80-4444AeezraoDuhdnwiq codes; unclassified (1 source)Acquired absence of other specified parts of digestive tract; Translations: [ACQ ABSENCE OTH PART DIGESTV TRACT]Onset: 33-26-5991Zgfcqesn Residual codes; unclassified (2 sources)Gkqntvle62-51-9333EgnktgdgZodgdcsp codes; unclassified (1 source)Tobacco izux18-76-4680YlbernoxJbojykty codes; unclassified (1 source)Pain, unspecified; Translations: [Pain, unspecified]Onset: 08-26-2024 EpisodicSubstance-related disorders (1 source)Nicotine dependence, cigarettes, uncomplicated; Translations: [NICOTINE DEPEND CIGARETTES UNCOMP]Onset: 83-88-1514WoyzpdlDiegkqibqmxe (10 sources)Patient encounter rdtjno52-78-0504 Past or Other Problems Problem ClassificationProblemDateDocumented DateEpisodic/ChronicImmunizations and screening for infectious disease (2 sources)Contact with and (suspected) exposure to other viral communicable diseases; Translations: [Encounter for screening for human papillomavirus (HPV)] Onset: 03-22-2021 Resolved: 60-86-7390XsgvrnhcEawre circulatory disease (7 sources)History of cerebrovascular accident; Translations: [Personal history of transient ischemic attack (TIA), and cerebral infarction without residual deficits]Onset: 848159-60-1222LcjfcgvrVxken screening for suspected conditions (not mental disorders or infectious disease) (8 sources)Encounter for screening mammogram for malignant neoplasm of breast; Translations: [Encounter for screening for malignant neoplasm of cervix]Onset: 21-94-9296PbpslgzuPiyzekm (4 sources)Syncope and collapse; Translations: [SYNCOPE AND COLLAPSE]Onset: 79-58-4411JnkwadmnZhsdjuhbgwip (1 source)Cough R05.9Onset: 11-14-2021 Resolved: 22-89-8383Bytlcaicaekq (1 source)Contact with and (suspected) exposure to covid-19 Z20.822Viral infection (2 sources)COVID-19Onset: 03-22-2021 Resolved: 11-14-2021 Results Test NameValueInterpretationReference RangeFacilityReminderson 02-27-2025 RemindersReminders From: Izzy Porras To: [facility] - Clinical; Sent: 02/26/2025 15:24:49 EST Show up: 02/26/2025 15:25:00 EST Subject: Ambulatory Reminder Due Date/Time: 02/27/2025 15:24:00 EST pap was negative Results: Date Result Name Value Ref Range 02/20/2025 16:59 HPV Aptima Negative (Negative - ) 02/20/2025 16:59 PAP Note Left message for patient to call back. Patient returns call, message given and verbalized understanding.NormalUniversity Hospitals Samaritan Medical CenterPAP [id number] 71-97-6842CAO AptimaNegativeInvalid Interpretation CodeNegativeUniversity Hospitals Samaritan Medical CenterComment on above:Result Comment: This nucleic acid amplification test detects fourteen high-risk HPV types (16,18,31,33,35,39,45,51,52,56,58,59,66,68) without differentiation. Performed at: [facility] [address] [place], [place] [id number] MD Michelle Lira Performed at: =G [facility] [address] [place], [place] [id number] MD Michelle LiraPerformed By: #### [id number] #### [facility] [address] [place], [place] [id number] Interpretation CodeFisher [facility] Good Samaritan HospitalComment on above:Result Comment: TESTS RESULT FLAG UNITS REF RANGE LAB Clinician Provided Cytology Information Source.............Vagina Dates / Results....had hysterectomy No. of containers..01 ThinPrep Vial DIAGNOSIS: 01 NEGATIVE FOR INTRAEPITHELIAL LESION OR MALIGNANCY. Specimen adequacy: 01 Satisfactory for evaluation. No endocervical cells are present. This is consistent with a history of hysterectomy. Performed by: Yuri Keene, Campaign Fundraiser ([facility]) . 01 Note: Note 01 The Pap smear is a screening test designed to aid in the detection of premalignant and malignant conditions of the uterine cervix. It is not a diagnostic procedure and should not be used as the sole means of detecting cervical cancer. Both false-positive and false-negative reports do occur. Test Methodology: Note 01 This liquid based ThinPrep(R) pap test was interpreted using the SchoolControl(R) 33Across(TM) Cervical Algorithm whole slide imaging system. HPV Genotype Reflex Note 01 Criteria not met, HPV Genotype not performed. FLAG LEGEND: L-Low Normal,H-High Normal,LL-Alert Low,HH-Alert High <-Panic Low,>-Panic High,A-Abnormal,AA-Critical Abnormal Performed at: [address] [facility] [address] [id number] Soraya Martinez MD, Jipryufuc By: #### [id number] #### [facility] [address] [place], [place] [address]Pscgkdsxhn Visit Summaryon 43-45-8799Vhijkkqhna Visit Summary Ambulatory Visit Summary VALERIE KAMARA :1980 Visit Date:02/20/2025 Ambulatory Visit Instructions Your Diagnosis Well woman exam Cervical cancer screening Breast cancer screening by mammogram Affective bipolar disorder Depression, major, recurrent, moderate Tests Performed MA Mamm Screen w/CAD if perf and 3D Marcio -- Results Pending -- Please visit your patient portal for your results or contact your primary care physician. Your Care Team Attending Physician - Izzy Porras Primary Care Physician - Izzy Porras This Is Your Medications List atorvastatin (atorvastatin 40 mg Tab) buPROPion (buPROPion 150 mg/24 hours XL Tab) clopidogrel (Plavix 75 mg Tab) escitalopram (escitalopram 10 mg Tab) nystatin topical (nystatin Top 100,000 units/g Crm 15 gram) pregabalin (pregabalin 50 mg Cap) rimegepant (Nurtec ODT 75 mg oral tablet, disintegrating) rimegepant (Nurtec ODT 75 mg oral tablet, disintegrating) Procedures Performed Surgery (12/2022), Hysterectomy (01/23/2021), delivery (04/15/2020), delivery (12/22/2015), Cholecystectomy (04/25/2006), section (12/14/2004). Discharge Vitals Heart Rate (Peripheral) 85 Respiratory Rate 16 Blood Pressure 112/72 Height 152.6 cm Height 60 in Weight 95.86 kg Weight 211.335 lb BMI 41.17 What to do next You Need to Complete the Following PAP w/ HPV and Genotype rflx, Cervical, Routine collect, 02/20/25, Order for future visit, Nurse collect, Well woman exam Cervical cancer screening Breast cancer screening by mammogram Affective bipolar disorder Depression, major, recurrent, moderate, Print Label By Order... Medications What How Much When Why Instructions Unchanged atorvastatin (atorvastatin 40 mg Tab) 1 Tablets By Mouth Every day Unchanged buPROPion (buPROPion 150 mg/ 24 hours XL Tab) 1 Tablets By Mouth Every day Unchanged clopidogrel (Plavix 75 mg Tab) 1 Tablets By Mouth Every day Unchanged escitalopram (escitalopram 10 mg Tab) 1 Tablets By Mouth Every day Unchanged nystatin topical (nystatin Top 100,000 units/ g Crm 15 gram) 1 Application Topical 2 times a day Affective bipolar disorder Candidiasis Smoker BMI 39.0-39.9,adult Obesity (BMI 30-39.9) Unchanged pregabalin (pregabalin 50 mg Cap) TAKE 1 CAPSULE BY MOUTH IN MORNING AND BEFORE BEDTIME Unchanged rimegepant (Nurtec ODT 75 mg oral tablet, disintegrating) See instructions take one tab every other day Unchanged rimegepant (Nurtec ODT 75 mg oral tablet, disintegrating) 1 Tablets DISSOLVE 1 TABLET ON THE TONGUE NEEDED - TO LAST 30 DAYS Medications and Immunizations Administered Not Given influenza virus vaccine, inactivated, Patient Refuses Allergies Topamax (Anaphylaxis) aspirin protamine sulfa drugs (Anaphylaxis) Problems Ongoing - Any problem that you are currently receiving treatment for. Affective bipolar disorder Bilateral otitis media BMI 39.0-39.9,adult Breast cancer screening by mammogram Candidiasis Cerebral infarction (ischemic stroke) Cervical cancer screening Chiari syndrome Cough Depression, major, recurrent, moderate Elevated hemoglobin A1c Establishing care with new doctor, encounter for Fatigue H/O cerebral infarction Insomnia Migraine Morbid obesity with BMI of 40.0-44.9, adult Morbid obesity with BMI of 40.0-44.9, adult Obesity (BMI 30-39.9) Right arm pain Screening for hyperlipidemia Screening for thyroid disorder Seasonal allergies Sinusitis Well woman exam Wellness examination Historical - Any problem that you are no longer receiving treatment for. H/O: CVA (cerebrovascular accident) Patient Survey You may receive a survey via text or e-mail asking about your office visit. Please share your experience with us by completing your survey. We appreciate your feedback and thank you for choosing us for your care. Patient Portal You may access all of your results and other medical record information on our secure patient portal. If you are not signed up for this yet, please contact [employer] at [phone] to get signed up today. Language Information Language assistance services are available as needed. [facility] Medicine Office/Clinic Noteon [phone] Medicine Office/Clinic NoteSt[facility] Medicine Office/Clinic Note HPI Staff Pt is presenting for pap exam Woman check up Last pap: about 4 years ago Results of lap pap: normal Where was it done:Dr. man Hx of Hysterectomy: yes hx: #3 of pregnancies _ abortions 0 live births _ living children 3 menstrual cycle (normal,heavy,ect):none Vaginal discharge, odor, itching:none Self breast exam at home? couple weeks ago Last Mammogram: 09/05/23 - normal Hx of breast, cervical or uterine cancer in the family: none History of STD: none Do you want tested for STD today: none History of Present Illness pt presents today for well woman visit Review of Systems PHQ Score Initial Depression Screen Score: 0 SCORE General: Well developed, well nourished, in no acute distress Neck: Neck supple. No masses or palpable cervical nodes. Trachea midline. Thyroid without nodules, masses, tenderness, or enlargement Breast: No mass, nodule, discharge, or erythema bilaterally, and no axillary lymphadenopathy Lungs: Normal respiratory effort and clear to auscultation Cardio: Regular rate and rhythm, normal S1 and S2, no murmur, no rub Abdomen: Soft, non-distended, non-tender, normal bowel sounds x4 Gyno: normal external genitalia. Urethra no discharge. Vagina normal without lesions, no vaginal discharge. Hysterectomy Neurologic: Grossly normal Skin: [place], moist, no tenting Lymph Nodes: No cervical adenopathy, nodes normal Mental Status: Alert and oriented x3. Normal mood and affect Physical Exam Vitals & Measurements HR: 85(Peripheral) RR: 16 BP: 112/72 SpO2: 96% HT: 60 in HT: 152.6 cm WT: 211.335 lb WT: 95.86 kg BMI: 41.17 Assessment/Plan 1. Well woman exam (Z01.419: Encounter for gynecological examination (general) (routine) without abnormal findings) pt presents today for well woman visit. BSE discussed. mammogram order provided will go to [facility]. papobtained. all questions answered. RTC as needed Ordered: Est Preventative 40 to 64 years 8[address] [place] Mamm Screen w/CAD if perf and 3D Marcio PAP [id number] w/ HPV and Genotype rflx 2. Cervical cancer screening (Z12.4: Encounter for screening for malignant neoplasm of cervix) pap obtained without difficutly Ordered: Est Preventative 40 to 64 years 67938 [place] Mamm Screen w/CAD if perf and 3D Marcio PAP 085855 w/ HPV and Genotype rflx 3. Breast cancer screening by mammogram (Z12.31: Encounter for screening mammogram for malignant neoplasm of breast) mammogram ordered Ordered: Est Preventative 40 to 64 years [address] [place] Mamm Screen w/CAD if perf and 3D Marcio PAP 153896 w/ HPV and Genotype rflx 4. Affective bipolar disorder (F31.9: Bipolar disorder, unspecified) stable on current medication regimen Ordered: Est Preventative 40 to 64 years [address] [place] Mamm Screen w/CAD if perf and 3D Marcio PAP [id number] w/ HPV and Genotype rflx 5. Depression, major, recurrent, moderate (F33.1: Major depressive disorder, recurrent, moderate) stable Ordered: Est Preventative 40 to 64 years [address]63 [place] Mamm Screen w/CAD if perf and 3D Marcio PAP [id number] w/ HPV and Genotype rflx Follow-up No qualifying data available Problem List/Past Medical History Ongoing Affective bipolar disorder Bilateral otitis media BMI 39.0-39.9,adult Breast cancer screening by mammogram Candidiasis Cerebral infarction (ischemic stroke) Cervical cancer screening Chiari syndrome Cough Depression, major, recurrent, moderate Elevated hemoglobin A1c Establishing care with new doctor, encounter for Fatigue H/O cerebral infarction Insomnia Migraine Morbid obesity with BMI of 40.0-44.9, adult Morbid obesity with BMI of 40.0-44.9, adult Obesity (BMI 30-39.9) Right arm pain Screening for hyperlipidemia Screening for thyroid disorder Seasonal allergies Sinusitis Well woman exam Wellness examination Historical H/O: CVA (cerebrovascular accident) Procedure/Surgical History Surgery (12/2022), Hysterectomy (01/23/2021), delivery (04/15/2020), delivery (12/22/2015), Cholecystectomy (04/25/2006), section (12/14/2004). Medications atorvastatin 40 mg Tab, 40 mg= 1 tab(s), Oral, Daily, 1 refills buPROPion 150 mg/24 hours XL Tab, 150 mg= 1 tab(s), Oral, Daily escitalopram 10 mg Tab, 10 mg= 1 tab(s), Oral, Daily Nurtec ODT 75 mg oral tablet, disintegrating, 75 mg= 1 tab(s) Nurtec ODT 75 mg oral tablet, disintegrating, See Instructions, 3 refills nystatin Top 100,000 units/g Crm 15 gram, 1 marilin, Topical, BID Plavix 75 mg Tab, 75 mg= 1 tab(s), Oral, Daily pregabalin 50 mg Cap Allergies Topamax (Anaphylaxis) aspirin protamine sulfa drugs (Anaphylaxis) Social History Alcohol Past. Beer, Wine. 1-2 times per year., 02/23/2024 Substance Abuse Never., 02/23/2024 Tobacco - No Risk, 10/18/2022 10 or more cigarettes (1/2 pack or more)/day in last 30 days Tobacco Use:. Never Smokeless Tobacco Use:. Cigarettes., 02/19/2025 Immunizations Vaccine Date S (more content not included)...[facility] Comment on above:Result Comment: Electronically Signed By: Izzy Porras\.lei\Date and Time Signed: 02/20/25 15:15 EDTPAP [id number] and Resultshad hysterectomyInvalid Interpretation [facility] Comment on above:Performed By: #### [id number] #### [facility] [address], [place] [address]Ofrewvohjhysk Body SiteVAGINANormalUniversity Hospitals Samaritan Medical Center Comment on above:Performed By: #### [id number] #### [facility] [address], [place] [address]Kzjxnuslyc Visit Summaryon [id number] Visit Summary Ambulatory Visit Summary VALERIE KAMARA :1980 Visit Date:09/21/2024 Ambulatory Visit Instructions Your Diagnosis Migraine H/O cerebral infarction Chiari syndrome BMI 40.0-44.9, adult Smoker Your Care Team Attending Physician - Izzy Porras Primary Care Physician - Izzy Porras This Is Your Medications List atorvastatin (atorvastatin 40 mg Tab) buPROPion (buPROPion 150 mg/24 hours XL Tab) clopidogrel (Plavix 75 mg Tab) escitalopram (escitalopram 10 mg Tab) nystatin topical (nystatin Top 100,000 units/g Crm 15 gram) pregabalin (pregabalin 50 mg Cap) rimegepant (Nurtec ODT 75 mg oral tablet, disintegrating) rimegepant (Nurtec ODT 75 mg oral tablet, disintegrating) Procedures Performed Surgery (12/2022), Hysterectomy (01/23/2021), delivery (04/15/2020), delivery (12/22/2015), Cholecystectomy (04/25/2006), section (12/14/2004). Discharge Vitals Heart Rate (Peripheral) 70 Respiratory Rate 18 Blood Pressure 130/86 Height 152.6 cm Height 60 in Weight 94.7 kg Weight 208.778 lb BMI 40.67 Medications What How Much When Why Instructions Changed atorvastatin (atorvastatin 40 mg Tab) 1 Tablets By Mouth Every day Pickup at [facility]/pharmacy #[id number] Unchanged buPROPion (buPROPion 150 mg/ 24 hours XL Tab) 1 Tablets By Mouth Every day Unchanged clopidogrel (Plavix 75 mg Tab) 1 Tablets By Mouth Every day Unchanged escitalopram (escitalopram 10 mg Tab) 1 Tablets By Mouth Every day Unchanged nystatin topical (nystatin Top 100,000 units/ g Crm 15 gram) 1 Application Topical 2 times a day Affective bipolar disorder Candidiasis Smoker BMI 39.0-39.9,adult Obesity (BMI 30-39.9) Unchanged pregabalin (pregabalin 50 mg Cap) TAKE 1 CAPSULE BY MOUTH IN MORNING AND BEFORE BEDTIME Unchanged rimegepant (Nurtec ODT 75 mg oral tablet, disintegrating) See instructions take one tab every other day Pickup at [facility]/pharmacy #[id number] Unchanged rimegepant (Nurtec ODT 75 mg oral tablet, disintegrating) 1 Tablets DISSOLVE 1 TABLET ON THE TONGUE NEEDED - TO LAST 30 DAYS Pharmacy Information [facility]/pharmacy #[id number]: [address], [place] [id number] [phone] Allergies Topamax (Anaphylaxis) aspirin protamine sulfa drugs (Anaphylaxis) Problems Ongoing - Any problem that you are currently receiving treatment for. Affective bipolar disorder Bilateral otitis media BMI 39.0-39.9,adult Breast cancer screening by mammogram Candidiasis Cerebral infarction (ischemic stroke) Chiari syndrome Cough Depression, major, recurrent, moderate Elevated hemoglobin A1c Establishing care with new doctor, encounter for Fatigue H/O cerebral infarction Insomnia Migraine Morbid obesity with BMI of 40.0-44.9, adult Morbid obesity with BMI of 40.0-44.9, adult Obesity (BMI 30-39.9) Right arm pain Screening for hyperlipidemia Screening for thyroid disorder Seasonal allergies Sinusitis Wellness examination Historical - Any problem that you are no longer receiving treatment for. H/O: CVA (cerebrovascular accident) Patient Survey You may receive a survey via text or e-mail asking about your office visit. Please share your experience with us by completing your survey. We appreciate your feedback and thank you for choosing us for your care. [facility] Medicine Office/Clinic Noteon [phone] Medicine Office/Clinic NoteFar[facility] Medicine Office/Clinic Note Chief Complaint 9 HPI Staff Valerie is a 44 year old female presenting to discuss medications Pt states neurologist has been terrible they keep canceling her appointments and she doesn't feel they are helping her anymore. Pt states a week ago she got a call from neurologist office stating sheneeds to start getting her medications from her PCP , [facility] here in [place] History of Present Illness pt presents today to discuss PCP taking over her meds that were previously ordered by neuro Review of Systems PHQ Score Initial Depression Screen Score: 0 SCORE Physical Exam Vitals & Measurements HR: 70(Peripheral) RR: 18 BP: 130/86 SpO2: 99% HT: 152.6 cm HT: 60 in WT: 208.778 lb WT: 94.7 kg BMI: 40.67 General: alert, no acute distress ENMT: oral mucosa moist, no pharyngeal erythema or exudate Cardiovascular: regular rate and rhythm, normal peripheral perfusion Respiratory: Lungs CTA, respirations non labored Extremities: no deformity, no trauma Neurological: oriented x 4, LOC appropriate for age, CN II-XII intact, motor strength equal & normal bilaterally, speech normal Assessment/Plan 1. Migraine (G43.909: Migraine, unspecified, not intractable, without status migrainosus) pt was recently seen by neurology and they suggested that she see PCP to maintain her meds. she is in need of Lipitor and Nurtec refills. they recently prescribed lyrica. she has not yet started it. she will discuss with them if they are planning on continuing those refills. if they do not, she will return for drug screen and medication agreement if she wants me to take over on that medication aswell. she may look into finding another neurologist for second opinion 2. H/O cerebral infarction (Z86.73: Personal history of transient ischemic attack (TIA), and cerebral infarction without residual deficits) see above 3. 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 BMI 40.0-44.9, adult (Z68.41: Body mass index [BMI] 40.0-44.9, adult) BMI education given 5. Smoker (F17.200: Nicotine dependence, unspecified, uncomplicated) consider not smoking Ordered: fluconazole, 150 mg = 1 tab(s), Oral, Once, take 1 tab on day one and 1 tabon day four, # 2 tab(s),Refills(s) 1, Pharmacy: [facility]/pharmacy #[id number], 152.6, cm, 02/28/24 8:30:00 EST, Height/Length Dosing, 92.5, kg, 02/28/24 8:30:00 EST, Weight Dosing Orders: atorvastatin, 40 mg = 1 tab(s), Oral, Daily, # 90 tab(s), Refills(s) 1, Pharmacy: [facility]/pharmacy #[id number], 152.6, cm, 09/21/24 8:32:00 EDT, Height/Length Dosing, 94.7, kg, 09/21/24 8:32:00 EDT, Weight Dosing rimegepant, See Instructions, take one tab every other day, # 16 tab(s), Refills(s) 3, Pharmacy: [facility]/pharmacy #[id number], 152.6, cm, 09/21/24 8:32:00 EDT, Height/Length Dosing, 94.7, kg, 09/21/24 8:32:00 EDT, Weight Dosing Follow-up No qualifying data available Problem List/Past Medical History Ongoing Affective bipolar disorder Bilateral otitis media BMI 39.0-39.9,adult Breast cancer screening by mammogram Candidiasis Cerebral infarction (ischemic stroke) Chiari syndrome Cough Depression, major, recurrent, moderate Elevated hemoglobin A1c Establishing care with new doctor, encounter for Fatigue H/O cerebral infarction Insomnia Migraine Morbid obesity with BMI of 40.0-44.9, adult Morbid obesity with BMI of 40.0-44.9, adult Obesity (BMI 30-39.9) Right arm pain Screening for hyperlipidemia Screening for thyroid disorder Seasonal allergies Sinusitis Wellness examination Historical H/O: CVA (cerebrovascular accident) Procedure/Surgical History Surgery (12/2022), Hysterectomy (01/23/2021), delivery (04/15/2020), delivery (12/22/2015), Cholecystectomy (04/25/2006), section (12/14/2004). Medications atorvastatin 40 mg Tab, 40 mg= 1 tab(s), Oral, Daily, 1 refills buPROPion 150 mg/24 hours XL Tab, 150 mg= 1 tab(s), Oral, Daily escitalopram 10 mg Tab, 10 mg= 1 tab(s), Oral, Daily Nurtec ODT 75 mg oral tablet, disintegrating, 75 mg= 1 tab(s) Nurtec ODT 75 mg oral tablet, disintegrating, See Instructions, 3 refills nystatin Top 100,000 units/g Crm 15 gram, 1 marilin, Topical, BID Plavix 75 mg Tab, 75 mg= 1 tab(s), Oral, Daily pregabalin 50 mg Cap Allergies Topamax (Anaphylaxis) aspirin protamine sulfa drugs (Anaphylaxis) Social History Alcohol Past. Beer, Wine. 1-2 times per year., 02/23/2024 Substance Abuse Never., 02/23/2024 Tobacco - No Risk, 10/18/2022 10 or more cigarettes (1/2 pack or more)/day in last 30 days Tobacco Use:. Never Smokeless Tobacco Use:. Cigarettes, 05/04/2024[facility] Comment on above:Result Comment: Electronically Signed By: Izzy Porras.lei\Date and Time Signed: 09/21/24 09:13 EDTFamily Medicine Office/Clinic Note on [id number] Medicine Office/Clinic NoteFamily Medicine Office/Clinic Note HPI Staff Valerie is a 43 year old female presenting with right side pain Onset: always had- she had 2 strokes 1 year and a half ago Location: right side pain from back of head to her feet rm is the worse Duration: off and on Characteristics: numb and heavy feeling, shooting pain Aggravated by: Relieved by: Timing:_ Associated Symptoms: The only thing that helped was Toradol... right before Guthrie Ribs on right side goes numb arm goes numb hand will be cold She went to [facility] CT scan done- NEG She has been dx with Chiari syndrome She said it feels like a pinch nerve History of Present Illness pt presents today for right sided pain Review of Systems PHQ Score Initial Depression Screen Score: 2 SCORE Physical Exam Vitals & Measurements T: 37.0 ???C(Oral) HR: 82(Peripheral) RR: 20 BP: 128/84 SpO2: 98% HT: 60 in HT: 152.6 cm WT: 93.3 kg WT: 205.691 lb BMI: 40.07 General: alert, no acute distress ENMT: oral mucosa moist, no pharyngeal erythema or exudate Cardiovascular: regular rate and rhythm, normal peripheral perfusion Respiratory: Lungs CTA, respirations non labored Extremities: no deformity, no trauma Neurological: oriented x 4, LOC appropriate for age, CN II-XII intact, motor strength equal & normal bilaterally, speech normal Assessment/Plan 1. Right arm pain (M79.601: Pain in right arm) pt c/o burning sensation in right arm. which was affected by her stroke. the pain was so bad a couple weeks ago she went to ER. they ruled out stroke and gave her toradol. she states she felt wonderful after the toradol. but now the pain is returning. neurology has tried gabapentin for the pain. ptstates that does nothing. will give toradol and kenalog in office today. pt will contact neurology in [place]. they seen her after stroke. she has tried contacting Dr. Laird a couple times, but is not getting a response. 2. Cerebral infarction (ischemic stroke) (I63.9: Cerebral infarction, unspecified) pt had a stroke 1.5 years ago. since having this stroke. she has had right sided nerve pain/weakness mostly in her arm but if she over does it, it will affect her leg too. 3. Smoker (F17.200: Nicotine dependence, unspecified, uncomplicated) consider not smoking 4. BMI 40.0-44.9, adult, (Z68.41: Body mass index [BMI] 40.0-44.9, adult)Body mass index [BMI] 40.0-44.9, adult BMI education 5. Morbid obesity with BMI of 40.0-44.9, adult (E66.01: Morbid (severe) obesity due to excess calories) see above Follow-up No qualifying data available Problem List/Past Medical History Ongoing Affective bipolar disorder Bilateral otitis media BMI 39.0-39.9,adult Breast cancer screening by mammogram Candidiasis Cerebral infarction (ischemic stroke) Chiari syndrome Cough Depression, major, recurrent, moderate Elevated hemoglobin A1c Establishing care with new doctor, encounter for Fatigue Insomnia Morbid obesity with BMI of 40.0-44.9, adult Obesity (BMI 30-39.9) Right arm pain Screening for hyperlipidemia Screening for thyroid disorder [...] Tab, 10 mg= 1 tab(s), Oral, Daily Nurtec ODT 75 mg oral tablet, disintegrating, 75 mg= 1 tab(s) nystatin Top 100,000 units/g Crm 15 gram, 1 marilin, Topical, BID Plavix 75 mg Tab, 75 mg= 1 tab(s), Oral, Daily ropinirole 0.5 mg Tab, 0.5 mg= 1 tab(s) Allergies Topamax (Anaphylaxis) aspirin protamine sulfa drugs (Anaphylaxis) Social History Alcohol Past. Beer, Wine. 1-2 times per year., 02/23/2024 Substance Abuse Never., 02/23/2024 Tobacco - No Risk, 10/18/2022 10 or more cigarettes (1/2 pack or more)/day in last 30 days Tobacco Use:. Never Smokeless Tobacco Use:. Cigarettes, [facility]/2024[facility] Comment on above:Result Comment: Electronically Signed By: Izzy Porras\Date and Time Signed: 05/04/24 11:03 ESTCOAGULATIONOrdered By: Gulshan Dan on 12-28-0746Flynnkcm function (closure time) collagen+EPINEPHrine induced (Bld) [Time]102 [id number] - 138 second(s)[facility] Man SeroComment on above: Interpretive Data: Normal ASA vWD Glanzmann s Thrombasthenia ------- ------ ------- COL/EPI Normal Abnormal Abnormal Abnormal Col/ADP Normal Normal Abnormal AbnormalB[facility] [place] PLT FUNCTION ASSAYon [id number] PLATELET FUNCTION.COLLAGEN+EPINEPHRINE INDUCED:TIME:PT:BLD:QN:102[facility] Comment on above:Normal ASA vWD Glanzmann???s Thrombasthenia ------- ------ ------- COL/EPI Normal Abnormal Abnormal Abnormal Col/ADP Normal Normal Abnormal Abnormal Original Ordering Provider: NAKUL PANG HealthcarePlt Function Assayon [id number] function (closure time) collagen+EPINEPHrine induced (Bld) [Time]102 second(s)Oyavnw31-210GnlnioUniversity Hospitals Samaritan Medical CenterComment on above:Result Comment: Normal ASA vWD Glanzmann???s Thrombasthenia ------- ------ ------- COL/EPI Normal Abnormal Abnormal Abnormal Col/ADP Normal Normal Abnormal AbnormalPerformed By: #### [id number] #### [facility] [address], [place] [address]Dhfngepsbx Visit Summaryon [id number] Visit Summary Ambulatory Visit Summary VALERIE KAMARA [...] you for choosing us for your care. [facility] Medicine Office/Clinic Noteon [id number] Medicine Office/Clinic NoteSt[facility] Medicine Office/Clinic Note Chief Complaint FMLA paperwork [...] and 1 tabon day four, # 2 tab(s),Refills(s) 1, Pharmacy: [facility]/pharmacy #[id number], 152.6, cm, 02/28/24 8:30:00 EST, Height/Length Dosing, 92.5, kg, 02/28/24 8:30:00 EST, Weight Dosing nystatin topical, 1 marilin, Topical, BID, 15 gram, Refill(s) 0, [facility]/pharmacy #[id number], 152.6, cm, 02/28/24 8:30:00 EST, Height/Length Dosing, 92.5, kg, 02/28/24 8:30:00 EST, Weight Dosing 2. Candidiasis (B37.9: Candidiasis, unspecified) pt used different deodorant and has a red itchy rash under right arm. it appears to be yeasty Ordered: fluconazole, 150 mg = 1 tab(s), Oral, Once, take 1 tab on day one and 1 tabon day four, # 2 tab(s),Refills(s) 1, Pharmacy: [facility]/pharmacy #[id number], 152.6, cm, 02/28/24 8:30:00 EST, Height/Length Dosing, 92.5, kg, 02/28/24 8:30:00 EST, Weight Dosing nystatin topical, 1 marilin, Topical, BID, 15 gram, Refill(s) 0, [facility]/pharmacy #[id number], 152.6, cm, 02/28/24 8:30:00 EST, Height/Length Dosing, 92.5, kg, 02/28/24 8:30:00 EST, Weight Dosing 3. Smoker (F17.200: Nicotine dependence, unspecified, uncomplicated) continue not smoking Ordered: fluconazole, 150 mg = 1 tab(s), Oral, Once, take 1 tab on day one and 1 tabon day four, # 2 tab(s),Refills(s) 1, [id number] 152.6, cm, 02/28/24 8:30:00 EST, Height/Length Dosing, 92.5, kg, 02/28/24 8:30:00 EST, Weight Dosing nystatin topical, 1 marilin, Topical, BID, 15 gram, Refill(s) 0, [facility]/pharmacy #[id number], 152.6, cm, 02/28/24 8:30:00 EST, Height/Length Dosing, 92.5, kg, 02/28/24 8:30:00 EST, Weight Dosing 4. BMI 39.0-39.9,adult (Z68.39: Body mass index [BMI] 39.0-39.9, adult) BMI education Ordered: fluconazole, 150 mg = 1 tab(s), Oral, Once, take 1 tab on day one and 1 tabon day four, # 2 tab(s),Refills(s) 1, [id number] 152.6, cm, 02/28/24 8:30:00 EST, Height/Length Dosing, 92.5, kg, 02/28/24 8:30:00 EST, Weight Dosing nystatin topical, 1 marilin, Topical, BID, 15 gram, Refill(s) 0, [id number] 152.6, cm, 02/28/24 8:30:00 EST, Height/Length Dosing, 92.5, kg, 02/28/24 8:30:00 EST, Weight Dosing 5. Obesity (BMI 30-39.9) (E66.9: Obesity, unspecified) see above Ordered: fluconazole, 150 mg = 1 tab(s), Oral, Once, take 1 tab on day one and 1 tabon day four, # 2 tab(s),Refills(s) 1, [id number], 152.6, cm, 02/28/24 8:30:00 EST, Height/Length Dosing, 92.5, kg, 02/28/24 8:30:00 EST, Weight Dosing nystatin topical, 1 marilin, Topical, BID, 15 gram, Refill(s) 0, [id number] 152.6, cm, 02/28/24 8:30:00 EST, [...] ODT 75 mg o (more content not included)...[facility] HospitalComment on above:Result Comment: Electronically Signed By: Izzy Porras\.br\Date and Time Signed: 02/28/24 09:16 ESTOutside Mammographyon [id number] [id number] St[facility] Anthony's HospitalAmbulatory Visit Summaryon 35-41-3877Kfddwedyad Visit Summary ANHVALERIE :1980 Visit Date:08/31/2023 Ambulatory Visit Instructions Your [...] you for choosing [facility] for your [facility]. [facility]23 Basophils/100 WBC (Bld)0.3 %Normal0.0-2.0[facility] CenterComment on above:Performed By: #### 7803965, 1752752, 2625840, 4246914, 85544808 ####[facility] [address] [place] [address] Basophils/Leukocytes Auto (Bld) [Pure # fraction]0.0 E9/LNormal0.0-0.2FPremier Health Atrium Medical CenterComment on above:Performed By: #### 2041534, 3874334, 5564844, 8595823, 66273391 ####[facility] [address] [place], [place] [address]Smrhnbjkxoo (Bld) [#/Vol]0.1 E9/LNormal0.0-0.5 [facility] CenterComment on above:Performed By: #### 8303567, 5899166, 9228961, 4513641, 03549510 ####[address] [address]Obzkctkuvjm/100 WBC (Bld)0.9 %Normal0.0-8.0[facility] CenterComment on above:Performed By: #### 4979902, 3050562, 5016052, 1946545, 31086405 ####[address] [address]Qbnrrknvwun distribution width (RBC) [Ratio]13.6 % Isbweu41.9-14.2FPremier Health Atrium Medical CenterComment on above:Performed By: #### 5553855, 9489412, 6455540, 1823147, 64276144 ####[address] [address]Gdwduiaftk (Bld) [Volume fraction] 43.6 %Xbxkez16.0-46.0[facility] CenterComment on above:Performed By: #### 5534710, 6780700, 8214943, 6202889, 43043278 ####[address] [address]Wzkbwwvgll (Bld) [Mass/Vol] 14.5 g/bDJxgzkc89.0-16.0[facility] CenterComment on above:Performed By: #### 7855823, 1185945, 3048642, 7663277, 71354059 ####[address] [address]Pfywxapobeg (Bld) [#/Vol]2.7 E9/LNormal1.0-4.0[facility] CenterComment on above:Performed By: #### 0994778, 4618801, 7515847, 7016812, 43476774 ####[address] [address]Huuzbkmmbiq/100 WBC (Bld)29.3 %Normal 14.0-50.0[facility] CenterComment on above:Performed By: #### 5196313, 3674030, 9937779, 4315823, 15406209 ####[facility] Labo [address] (RBC) [Entitic mass]30.9 pgNormal 27.0-34.0[facility] CenterComment on above:Performed By: #### 2805817, 3738989, 5909366, 3192770, 90376724 ####[address] (RBC) [Mass/Vol]33.2 g/dLNormal 31.4-36.0[facility] CenterComment on above:Performed By: #### 7848460, 3788671, 5119536, 7514458, 41818310 ####[address] (RBC) [Entitic vol]93.0 fLNormal 80.0-100.0[facility] CenterComment on above:Performed By: #### 7657058, 4762397, 0317113, 9696752, 24784643 ####[place] [address]Monocytes (Bld) [#/Vol]0.5 E9/LNormal 0.2-1.0[facility] CenterComment on above:Performed By: #### 0139176, 4239941, 3164393, 1060536, 44210527 ####[place] [address]Neutrophils (Bld) [#/Vol]5.8 E9/LNormal 2.0-7.5FPremier Health Atrium Medical CenterComment on above:Performed By: #### 5324712, 6253409, 3931541, 9300430, 27558005 ####[address] [address]Xjksafqltpe/100 WBC (Bld)64.0 %Normal 36.0-75.0[facility] CenterComment on above:Performed By: #### 6355209, 8664324, 6511890, 5134911, 80225338 ####[facility] Lab[address] [place], [place] [address]Kuyducnx mean volume (Bld) [Entitic vol] 8.8 fLNormal6.4-10.8[facility] CenterComment on above:Performed By: #### 8834670, 5357111, 2354879, 0525215, 49548036 ####[facility] [address] [place], [place] [address]Hetxukaau (Bld) [#/Vol]243.0 E9/KXsfitx093.0-500.0[facility] CenterComment on above:Performed By: #### 6088166, 6095484, 9166209, 3211629, 77937058 ####[facility] [address] [place] [address]LEU (Bld) [#/Vol]4.7 E12/L Normal4.3-5.9[facility] CenterComment on above:Performed By: #### 4277221, 5935036, 7720243, 7642095, 28857763 ####[address] [address]LIQ corrected for nucl RBC Auto (Bld) [#/Vol]9.1 E9/LNormal4.0-11.0[facility] CenterComment on above: Performed By: #### 7578271, 8602596, 0670650, 5694459, 64438229 ####[place] [address] [place], [place] [address]AELPHZMSKOjfgres By: SYSTEM SYSTEM on 51-82-4744Gnzrsrm [Mass/Vol]4.2 g/dLNormal3.3 - 5.0 gm/dL Remisol ChemAlbumin/Globulin [Mass ratio]1.4 {ratio}Normal1.1 - 2.2Remisol Chem ALP [Catalytic activity/Vol]62 [iU]/hZuvelc45 - 98 Int._Unit/LRemisol ChemALT No additional P-5'-P [Catalytic activity/Vol]30 [iU]/dNormal6 - 46 Int._Unit/L Remisol ChemAnion gap [Moles/Vol]10 mmol/LNormal6 - 16 mEq/LRemisol ChemAST [Catalytic activity/Vol]21 [iU]/dNormal5 - 43 Int._Unit/LRemisol ChemBilirubin [Mass/Vol]0.3 mg/dLNormal0.0 - 1.1 mg/dLRemisol ChemCalcium [Mass/Vol]8.9 mg/dL Normal8.9 - 11.1 mg/dLRemisol ChemChloride [Moles/Vol]106 mmol/SQurrgi487 - 111 mmol/LRemisol ChemCholesterol [Mass/Vol]155 mg/xIWgvinu325 - 200 mg/dLRemisol ChemCholesterol in HDL [Mass/Vol]31 mg/dLInvalid Interpretation CodeRemisol Chem Comment on above:Result Comment: '>= 60 LOW RISK' '<= 40 HIGH RISK'Cholesterol in LDL [Mass/Vol]105 mg/dLNormal<=129mg/dLRemisol ChemCholesterol in VLDL [Mass/Vol]53 mg/dLHigh7 - 40 mg/dLRemisol ChemCO2 [Moles/Vol]25 mmol/PTbupqs09 - 31 mmol/LRemisol ChemCreatinine [Mass/Vol]0.8 mg/dLNormal0.5 - 1.3 mg/dLRemisol XkkzbPOT85 mL/min/1.73 r1Xrcdto>=59mL/min/1.73 c6Qdjvmre ChemGlobulin (S) [Mass/Vol]2.9 g/dLNormal1.4 - 4.0 gm/dLRemisol Chem Glucose [Mass/Vol]113 mg/xIOvbnye76 - 199 mg/dLRemisol ChemPotassium [Moles/Vol] 4.1 mmol/LNormal3.5 - 5.3 mmol/LRemisol ChemProtein [Mass/Vol]7.1 g/dLNormal6.0 - 7.8 gm/dLRemisol ChemSodium [Moles/Vol]137 mmol/RUuvuvl506 - 145 mmol/LRemisol ChemTriglyceride [Mass/Vol]265 mg/dLHigh<=149mg/dLRemisol ChemTSH Qn1.56 m[IU]/LNormal0.34 - 5.60 mcIU/mLRemisol ChemUrea nitrogen [Mass/Vol]8 mg/dL Normal5 - 21 mg/dLRemisol ChemUrea nitrogen/Creatinine [Mass ratio]10 mg/mg Zteitp86 - 20Remisol ChemCHEMISTRYOrdered By: Jose Hoffmann on 08-31-2023 HbA1c (Bld) [Mass fraction]6.0 %High<=5.9%[facility] ChemAutoSSCMPon 46-02-2579Mehrxls [Mass/Vol]4.2 g/dLNormal3.3-5.0[facility] CenterComment on above: Performed By: #### 8973022, 9134101, 0052696, 0022241, 24953733 ####[facility] [address] [place], [place] [address]Pgbwuxr/Globulin (S) [Mass conc ratio]1.0Gjwuxq3.1-2.2FPremier Health Atrium Medical CenterComment on above: Performed By: #### 6222276, 9315982, 8654383, 3182630, 44745656 ####[facility] [address] [place], [place] [address]QLO [Catalytic activity/Vol]62 Int._Unit/WMezpoy78-89MeofpeUniversity Hospitals Samaritan Medical CenterComment on above:Performed By: #### 7533130, 8595045, 6929885, 4983934, 87765070 ####[facility] [address] [place], [place] [address]QYP No additional P-5'-P [Catalytic activity/Vol]30 Int._Unit/LNormal6-46[facility] CenterComment on above:Performed By: #### 7164050, 7010871, 1847593, 0803644, 07986068 ####[facility] [address] [facility], [place] [address]Jqari gap [Moles/Vol]10 mmol/LNormal6-16[facility] CenterComment on above:Performed By: #### 8473311, 9568794, 5419551, 7726175, 09780271 ####[facility] [address] [place], [place] [address]MAW [Catalytic activity/Vol]21 Int._Unit/LNormal5-43[facility] CenterComment on above:Performed By: #### 2026367, 8760143, 7255856, 6151573, 99558010 ####[place] [address] [place], [place] [address]Kpiadvwhb [Mass/Vol]0.3 mg/dLNormal0.0-1.1FPremier Health Atrium Medical Center Comment on above:Performed By: #### 7912616, 2868677, 8624848, 3532479, 97934220 ####[facility] [address] [place] [address] Calcium [Mass/Vol]8.9 mg/dLNormal8.9-11.1FPremier Health Atrium Medical CenterComment on above:Performed By: #### 0980395, 5009099, 4701292, 7329235, 32555875 ####[facility] [address] [place], [place] [address]Jbxfcaei [Moles/Vol]106 mmol/VPmctkc383-624MnuiuiUniversity Hospitals Samaritan Medical CenterComment on above: Performed By: #### 9860083, 9162155, 9783981, 1057312, 39321137 ####[place] [address] [place], [place] [address]QI5 [Moles/Vol]25 mmol/VDzlcvt16-09HwkmkrUniversity Hospitals Samaritan Medical CenterComment on above:Performed By: #### 8857299, 3669095, 2797890, 6495857, 27331321 ####[facility] [address] [place], [place] [address]Eoxixjcbpd [Mass/Vol]0.8 mg/dLNormal 0.5-1.3FPremier Health Atrium Medical CenterComment on above:Performed By: #### 5438454, 0271142, 5488067, 1324225, 30226182 ####[facility] [address] [place] [address]Xpetmhks (S) [Mass/Vol]2.9 g/dLNormal 1.4-4.0[facility] CenterComment on above:Performed By: #### 2128298, 7776525, 1593700, 9213610, 63881191 ####[facility] Labo [address] [address]Ouagpon [Mass/Vol]113 mg/gQRubhxs06-924 [facility] CenterComment on above:Performed By: #### 7325885, 8944647, 0652290, 4587544, 32479307 ####[address] [address]Taxxnkckn [Moles/Vol]4.1 mmol/LNormal3.5-5.3FPremier Health Atrium Medical CenterComment on above:Performed By: #### 4567156, 5129343, 8103425, 3155475, 30807368 ####[address] [address]Awvvirw [Mass/Vol]7.1 g/dLNormal6.0-7.8[facility] CenterComment on above:Performed By: #### 1364424, 3108352, 5465840, 6413823, 56172895 ####[address] [address]Stvolf [Moles/Vol]137 mmol/NSkelrh856-124EidpkpUniversity Hospitals Samaritan Medical CenterComment on above:Performed By: #### 4938438, 0632849, 3820708, 7235912, 91659823 ####[address] [address]Ljie nitrogen [Mass/Vol]8 mg/dLNormal5-21[facility] CenterComment on above:Performed By: #### 9618159, 9148984, 0057442, 1391206, 74930976 ####[facility] [address] [place], [place] [address]Tfaa nitrogen/Creatinine [Mass ratio]10 No EhdyxUxhuah51-57 [facility] CenterComment on above:Performed By: #### 4149685, 0184743, 5351809, 9281013, 26173256 ####[facility] [address] [place], [place] [address]Fqnqenjrz 81-73-1604Xldbvvv [id number]#1.00TIFFNoOhioHealth Marion General HospitalFarutland heights state [facility] Medicine Office/Clinic Noteon 57-08-7366Rcndxh Medicine Office/Clinic NoteHPI Staff Valerie is a 43 year old [...] Comprehensive Metabolic Panel HgbA1c Lab Specimen Collect 76907 Lipid Panel Thyroid Stimulating Hormone 2. Screening for hyperlipidemia (Z13.220: Encounter for screening for lipoid disorders) lipid panel drawn Ordered: methylPREDNISolone, 40 mg = 1 mL, Susp-Inj, IntraMuscular, Once, Stop date 08/31/23 8:58:00 EDT, Routine, Start date 08/31/23 8:58:00 EDT, 08/31/23 8:58:00 EDT CBC w/ Auto Diff Comprehensive Metabolic Panel HgbA1c Lab Specimen Collect 30718 Lipid Panel Thyroid Stimulating Hormone 3. Screening for thyroid disorder (Z13.29: Encounter for screening for other suspected endocrine disorder) TSH drawn Ordered: methylPREDNISolone, 40 mg = 1 mL, Susp-Inj, IntraMuscular, Once, Stop date 08/31/23 8:58:00 EDT, Routine, Start date 08/31/23 8:58:00 EDT, 08/31/23 8:58:00 EDT CBC w/ Auto Diff Comprehensive Metabolic Panel HgbA1c Lab Specimen Collect 90491 Lipid Panel Thyroid Stimulating Hormone 4. Fatigue (R53.83: Other fatigue) TSH and CBC drawn Ordered: methylPREDNISolone, 40 mg = 1 mL, Susp-Inj, IntraMuscular, Once, Stop date 08/31/23 8:58:00 EDT, Routine, Start date 08/31/23 8:58:00 EDT, 08/31/23 8:58:00 EDT CBC w/ Auto Diff Comprehensive Metabolic Panel HgbA1c Lab Specimen Collect 85367 Lipid Panel Thyroid Stimulating Hormone 5. Elevated hemoglobin A1c (R73.09: Other abnormal glucose) will check today Ordered: methylPREDNISolone, 40 mg = 1 mL, Susp-Inj, IntraMuscular, Once, Stop date 08/31/23 8:58:00 EDT, Routine, Start date 08/31/23 8:58:00 EDT, 08/31/23 8:58:00 EDT HgbA1c Lab Specimen Collect 09077 6. Breast cancer screening by mammogram (Z12.31: Encounter for screening mammogram for malignant neoplasm of breast) order for mammogram provided. sent to [facility] as well 7. Seasonal allergies [...] No. Household tobacco concerns: No. Yes, 08/31/2023 [facility]Comment on [facility]:Result Comment: Electronically Signed By: Izzy Porras\Date and Time Signed: 08/31/23 12:37 EDT HEMATOLOGYOrdered By: SYSTEM SYSTEM on 53-05-3422Epquwkmzz/100 WBC (Bld)0.3 % Normal0.0 - 2.0 %Remisol HemeBasophils/Leukocytes Auto (Bld) [Pure # fraction] 0.0 E9/LNormal0.0 - 0.2 E9/LRemisol HemeEosinophils (Bld) [#/Vol]0.1 E9/LNormal 0.0 - 0.5 E9/LRemisol HemeEosinophils/100 WBC (Bld)0.9 %Normal0.0 - 8.0 %Remisol HemeErythrocyte distribution width (RBC) [Ratio]13.6 %Qxtgvt50.9 - 14.2 % Remisol HemeHematocrit (Bld) [Volume fraction]43.6 %Jhkobt21.0 - 46.0 %Remisol HemeHemoglobin (Bld) [Mass/Vol]14.5 g/fPCqmlpt04.0 - 16.0 gm/dLRemisol Heme Lymphocytes (Bld) [#/Vol]2.7 E9/LNormal1.0 - 4.0 E9/LRemisol HemeLymphocytes/100 WBC (Bld)29.3 %Rlwozz21.0 - 50.0 %Remisol HemeMCH (RBC) [Entitic mass]30.9 pg Zycxvp58.0 - 34.0 pgRemisol HemeMCHC (RBC) [Mass/Vol]33.2 g/tGHymnxw03.4 - 36.0 gm/dLRemisol HemeMCV (RBC) [Entitic vol]93.0 zLOeymld64.0 - 100.0 fLRemisol Heme Monocytes (Bld) [#/Vol]0.5 E9/LNormal0.2 - 1.0 E9/LRemisol HemeMonocytes/100 WBC (Bld)5.5 %Normal4.0 - 14.0 %Remisol HemeNeutrophils (Bld) [#/Vol]5.8 E9/LNormal 2.0 - 7.5 E9/LRemisol HemeNeutrophils/100 WBC (Bld)64.0 %Fnsbea02.0 - 75.0 % Remisol HemePlatelet mean volume (Bld) [Entitic vol]8.8 fLNormal6.4 - 10.8 fL Remisol HemePlatelets (Bld) [#/Vol]243.0 E9/KIdquqf960.0 - 500.0 E9/LRemisol HemeRBC (Bld) [#/Vol]4.7 E12/LNormal4.3 - 5.9 E12/LRemisol HemeWBC corrected for nucl RBC Auto (Bld) [#/Vol]9.1 E9/LNormal4.0 - 11.0 E9/LRemisol CtrhUvoC7ogm 05-30-3798QjR9q (Bld) [Mass fraction]6.0 %High<=5.9[facility] Comment on above:Performed By: #### [id number] ####[facility] [address] AveNmidstate medical centerk, [place] [address]Gdcte Panelon 66-50-8208Gqyiaobvuzs [Mass/Vol]155 mg/jYSykjez489-411UrxtfiUniversity Hospitals Samaritan Medical CenterComment on above: Performed By: #### 8344135, 4677500, 3030672, 2376878, 25619552 ####[facility] [address] AveNbristol hospital, [place] [address]Igkfucbzabl in HDL [Mass/Vol]31 mg/dLInvalid Interpretation CodeUniversity Hospitals Samaritan Medical CenterComment on above:Result Comment: '>= 60 LOW RISK' '<= 40 HIGH RISK'Performed By: #### 5656432, 4507865, 6142993, 8332580, 96245879 ####[facility] [address] [place] [address] Cholesterol in LDL [Mass/Vol]105 mg/dLNormal<=129[facility] Comment on above:Performed By: #### 6475096, 3656336, 3397948, 2739936, 67812647 ####[facility] [address] [place] [address] Cholesterol in VLDL [Mass/Vol]53 mg/dLHigh7-40[facility] CenterComment on above:Performed By: #### 4684910, 8108803, 4340934, 0223981, 28604853 ####[facility] [address] [place] [address] Triglyceride [Mass/Vol]265 mg/dLHigh<=149[facility] CenterComment on above:Performed By: #### 4396824, 7682323, 2789837, 7432209, 27114373 ####[facility] [address] [place], [place] [address]Zdmtoegkg Order on 35-97-4164Itempheml [id number]#1.00TIFF NormalUniversity Hospitals Samaritan Medical CenterTSHon 57-81-1659SCM Qn1.56 m[IU]/LNormal 0.34-5.60[facility] CenterComment on above:Performed By: #### 3781120, 6074059, 0853005, 1433322, 88561687 ####[facility] [address] [place], [place] [address]wSDFqh 88-09-8114bUBE72 mL/min/1.73 m2 Normal>=59[facility] Medical CenterComment on above:Order Comment: Order added by Discern Expert.Performed By: #### 9566756, 9870840, 3187059, 2084446, 25614473 ####[facility] [address] [place], [place] [address]Twanjzvuwh Visit Summaryon 19-55-3364Hvttygtrqq Visit Summary VALERIE KAMARA Miguel :1980 Visit Date:08/17/2023 Ambulatory Visit Instructions Your [...] What to do next Scheduled Follow-Up Appointments Tuesday 8:20 AM EDT With: Izzy Porras [facility] :1980 Visit Date:08/17/2023 [...] What to do next Scheduled Follow-Up Appointments Tuesday 8:20 AM EDT With: Izzy Porras Where: [facility] Medicine Office/Clinic Noteon 13-01-8853Uoxetq Medicine Office/Clinic NoteHPI Staff Valerie is a 43 year old female presenting for FMLA paperwork 02/11/23 GENE 11 Follow up for Mental Status: Medication adherence- Yes, takes medication as prescribed Medication refill needed: _ Suicidal thoughts-Not at this time Most recent GENE: 9 Most recent PHQ: n/a bipolar Pt is here today to have fmla paperwork for her on days that patient is having mental breakdowns is needed to be a home to [...] 4, # 2 tab(s), Refills(s) 1, Pharmacy: [facility]/pharmacy #[id number], 152.6, cm, 06/07/23 10:13:00 EST, Height/Length Dosing, [...] No. Household tobacco concerns: No. Yes, 08/17/2023 [facility] HospitalComment on above:Result Comment: Electronically Signed By: Izzy Porras.lei\Date and Time Signed: 08/17/23 09:34 EDT Consultation Noteon 46-56-0710Npjaklucyeam Note [id number]#1.00TIFFNoOhioHealth Marion General HospitalConsultation Noteon 20-40-7323Ceverlhrssao Note [id number]#1.00TIFFNormalFishMt. Washington Pediatric HospitalAmbulatory Visit Summaryon 72-49-5660Ralikigelv Visit Summary VALERIE KAMARA :1980 Visit Date:06/07/2023 Ambulatory Visit Instructions Your [...] times a day as needed for as neededfor anxiety Allergies Topamax (Anaphylaxis) aspirin protamine sulfa [...] you for choosing us for your care. [facility] Medicine Office/Clinic Noteon 30-17-3460Gswjac Medicine Office/Clinic NoteHPI Staff Valerie is a 43 year old [...] day(s), # 6 tab(s), Refills(s) 0, [id number] 152.6, cm, 06/07/23 10:13:00 EST, Height/Length Dosing, 95.3, kg, 06/07/23 10:13:00 EST, Weight Dosing benzonatate, 200 mg = 1 cap(s), Oral, TID, X 7 day(s), # 21 cap(s), Refills(s) 0, [id number], 152.6, cm, 06/07/23 10:13:00 EST, Height/Length Dosing, 95.3, kg, 06/07/23 10:13:00 EST, Weight Dosing methylPREDNISolone, = 1 packet(s), Oral, As Directed, as directed on package labeling, X 6 day(s), # 21 tab(s), Refills(s) 0, Pharmacy: [facility] #[id number], 152.6, cm, 06/07/23 10:13:00 EST, Height/Length Dosing, 95.3, kg, 06/07/23 10:13:00 EST, Weight Dosing 2. Cough (R05.9: Cough, unspecified) cough worsening since getting sick 9 days ago. will order tessalon pearls and medrol dose pack Ordered: azithromycin, = 1 packet(s), Oral, As Directed, as directed on package labeling, X 5 day(s), # 6 tab(s), Refills(s) 0, [id number], 152.6, cm, 06/07/23 10:13:00 EST, Height/Length Dosing, 95.3, kg, 06/07/23 10:13:00 EST, Weight Dosing benzonatate, 200 mg = 1 cap(s), Oral, TID, X 7 day(s), # 21 cap(s), Refills(s) 0, [id number], 152.6, cm, 06/07/23 10:13:00 EST, Height/Length Dosing, 95.3, kg, 06/07/23 10:13:00 EST, Weight Dosing methylPREDNISolone, = 1 packet(s), Oral, As Directed, as directed on package labeling, X 6 day(s), # 21 tab(s), Refills(s) 0, Pharmacy: [facility] #[id number], 152.6, cm, 06/07/23 10:13:00 EST, Height/Length Dosing, 95.3, kg, 06/07/23 10:13:00 EST, Weight Dosing 3. BMI 40.0-44.9, adult (Z68.41: Body mass index [BMI] 40.0-44.9, adult) BMI education complete Ordered: azithromycin, = 1 packet(s), Oral, As Directed, as directed on package labeling, X 5 day(s), # 6 tab(s), Refills(s) 0, [id number], 152.6, cm, 06/07/23 10:13:00 EST, Height/Length Dosing, 95.3, kg, 06/07/23 10:13:00 EST, Weight Dosing benzonatate, 200 mg = 1 cap(s), Oral, TID, X 7 day(s), # 21 cap(s), Refills(s) 0, [id number], 152.6, cm, 06/07/23 10:13:00 EST, Height/Length Dosing, 95.3, kg, 06/07/23 10:13:00 EST, Weight Dosing methylPREDNISolone, = 1 packet(s), Oral, As Directed, as directed on package labeling, X 6 day(s), # 21 tab(s), Refills(s) 0, [id number], 152.6, cm, 06/07/23 10:13:00 EST, Height/Length Dosing, 95.3, kg, 06/07/23 10:13:00 EST, Weight Dosing 4. Smoker (F17.200: Nicotine dependence, unspecified, uncomplicated) consider not smoking Ordered: azithromycin, = 1 packet(s), Oral, As Directed, as directed on package labeling, X 5 day(s), # 6 tab(s), Refills(s) 0, [id number], 152.6, cm, 06/07/23 10:13:00 EST, Height/Length Dosing, 95.3, kg, 06/07/23 10:13:00 EST, Weight Dosing benzonatate, 200 mg = 1 cap(s), Oral, TID, X 7 day(s), # 21 cap(s), Refills(s) 0, Pharmacy: [facility]/pharmacy #[id number], 152.6, cm, 06/07/23 10:13:00 EST, Height/Length Dosing, 95.3, kg, 06/07/23 10:13:00 EST, Weight Dosing methylPREDNISolone, = 1 packet(s), Oral, As Directed, (more content not included)...[facility] HospitalComment on above:Result Comment: Electronically Signed By: Izzy Porras\.br\Date and Time Signed: 06/07/23 11:11 ESTCOVID Quick Testingon 46-71-2433VcisksZahiokpeMvcdi Locai Other cbc AUTO DIFFon 39-50-9649GCJS #0.0 103/ulNormal 0.0-0.1Barn[facility] HospitalComment on above:Performed By: #### CBC ####[facility] W[address]cl[address] [place], [place] [address]Dr.Owen Regan Basophils/100 WBC (Bld)0.5 %Normal0.2-2.0The [facility] HospitalComment on above: Performed By: #### CBC ####[facility] [address] [place], [place] [address]Dr.Yilan ChangEO #0.1 103/ulNormal0.0-0.7The [facility] HospitalComment on above:Performed By: #### CBC ####[facility] Ygflexiskq[address] [place], [place] [address]Dr.Owen ChangEosinophils/100 WBC (Bld)1.5 %Normal0.9-7.0[facility] HospitalComment on above:Performed By: #### CBC ####[facility] F[address]gviphr[address] [place], [place] [address]Dr.Katelinlan ChangErythrocyte distribution width (RBC) [Ratio]13.6 %Normal 11.0-15.0[facility] HospitalComment on above:Performed By: #### CBC ####[facility] Mxjpomvxfm[address] [place], [place] [address]Dr. Owen ReganHematocrit (Bld) [Volume fraction]42.7 %Vqbfil51.0-48.0[facility] HospitalComment on above:Performed By: #### CBC ####[facility] [address] [place] [address]Dr.Owen ReganHemoglobin (Bld) [Mass/Vol]14.1 g/cXCsavfx65.0-16.0The [facility] HospitalComment on above: Performed By: #### CBC ####[facility] [address]izzzcfks[address] [place], [place] [id number].Yilan ChangIG #0.02 10e3/ulNormal0.00-0.03The [facility] HospitalComment on above:Performed By: #### CBC ####[facility] Cgenofxxci7[address] [place], [place] [address]Dr.Owen ChangIG %0.2 %Normal 0.0-0.5The [facility] HospitalComment on above:Performed By: #### CBC ####[facility] Esiejyinsd[address] [place], [place] [address]Dr.Owen ChangLYMPH #2.3 103/ulNormal1.2-3.8The [facility] HospitalComment on above:Performed By: #### CBC ####[facility] Jpbmjhdkpm68[address] [place], [place] [address]Dr.Owen ReganLymphocytes/100 WBC (Bld)26.5 %Kwopux64.5-60.0The [facility] HospitalComment on above:Performed By: #### CBC ####[facility] Pqszlimxxx7[address] [place], [place] [address]Dr.Owen ReganMANUAL DIFF REQ NONormalThe [facility] HospitalComment on above:Performed By: #### CBC ####[facility] Vvvlgcondm[address] [place], [place] [address]Dr. Owen ReganMCH (RBC) [Entitic mass]30.9 ifTzkmnv90.7-34.0The [facility] Comment on above:Performed By: #### CBC ####[facility] Bxbbqrqutb84[address] [place], [place] [address]Dr.Owen JassMCHC (RBC) [Mass/Vol]33.0 g/dL Gcalpw72.9-35.2The [facility] HospitalComment on above:Performed By: #### CBC ####[facility] Abxjkrhtnj7[address] [place], [place] [address]Dr. Owen JassMCV (RBC) [Entitic vol]93.6 jYDdmyee05.0-99.0The [facility] Comment on above:Performed By: #### CBC ####[facility] Aiwwhhbrfo1560[address] [place], [place] [address]Dr.Owen ReganMONO #0.5 103/ulNormal0.3-0.8 The [facility] HospitalComment on above:Performed By: #### CBC ####[facility] Mwpwomivla44[address] [place], [place] [address]Dr.Katelinmerle Regan Monocytes/100 WBC (Bld)5.2 %Normal1.7-12.0The [facility] HospitalComment on above: Performed By: #### CBC ####[facility] Pocapbgfen84[address] [place], [place] [address]Dr.Owen JassNEUT #5.8 103/ulNormal1.4-6.5The [facility] HospitalComment on above:Performed By: #### CBC ####[facility] Jsdmfdrwhq[address] [place], [place] [address]Dr.Owen JassNeutrophils/100 WBC (Bld)66.1 %Ovpnfk37.0-75.0The [facility] HospitalComment on above:Performed By: #### CBC ####[facility] Nhyporjhsu30[address] [place], [place] [address]Dr.Owen JassPlatelet mean volume (Bld) [Entitic vol]9.9 fLNormal9.5-13.5 The [facility] HospitalComment on above:Performed By: #### CBC ####[facility] Ewccpywhdp53[address] [place], [place] [address]Dr.Owen JxyqiHIE265 103/exJfywmm740-927Cai [facility] HospitalComment on above:Performed By: #### CBC ####[facility] Virpsoflad[address] [place], [place] [address]Oh. Owen ReganRBC4.56 106/ulNormal4.20-5.40The [facility] HospitalComment on above: Performed By: #### CBC ####[facility] Dhxlarbgwr3397 [place], [place] [address]Bz.Owen ChangWBC8.8 103/ulNormal4.0-11.0The [facility] HospitalComment on above:Performed By: #### CBC ####[facility] Zjonfmbdpv9336 [place], [place] [address]Up.Owen ReganCT STROKE HEAD WOon [id number] STROKE HEAD WOEXAMINATION: CT STROKE HEAD WO, 09/16/2022 8:23 AM [...] limited views. OTHER: Findings discussed with Dr. 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 MRI follow-up is recommended Electronically authenticated by: MANPREET MACIEL Date: 2022-09-16 08:49[facility] HospitalCTA NECK WO W CONon [id number] NECK WO W CONEXAMINATION: CTA HEAD WO W CON, CTA NECK [...] the head and neck. Electronically authenticated by: [place] RUTLEDGE Date: 2022-09-16 09:38[facility] HospitalPROF CHEM 8 (BAS METB)on [id number] gap [Moles/Vol]12.7 mmol/LNormalBarnesville HospitalComment on above:Performed By: #### BMP ####[facility] [address]crs[address] [address]Dr. Yilan ChangCalcium [Mass/Vol]8.6 mg/dLNormal8.5-10.1The [facility] on above:Performed By: #### BMP ####[facility] [address]plzsywx[address] [address]Dr.Yilan ChangChloride [Moles/Vol]106 mmol/LNormal 98-107The [facility] on above:Performed By: #### BMP ####[facility] Yqouifohkg[address] [place] [address]Dr.Yilan ChangCO2 [Moles/Vol]24.7 mmol/OEekdiy08.0-32.0[facility] on above: Performed By: #### BMP ####[facility] Pyalaczsgd[address] [id number].Yilan ChangCreatinine [Mass/Vol]0.88 mg/dLNormal 0.55-1.02[facility] on above:Performed By: #### BMP ####[facility] Cmguzlfdam[address] [address]Dr. Yilan ChangEGFR-AF MOLDOVAN>60Normal>=60The [facility] HospitalComment on above: Performed By: #### BMP ####[facility] Vbbfrhughz[address] [address]Dr.Yilan ChangEGFR-NON AF MOLDOVAN>60Normal>=60The [facility] HospitalComsurgeons [facility] on above:Performed By: #### BMP ####[facility] Qxbabplruk[address] [place], [place] [address]Dr.Yilan ChangGlucose [Mass/Vol]103 mg/cHJdfldc64-780Fdf [facility] HospitalComsurgeons [facility] on above:Performed By: #### BMP ####[facility] Opeklowiko[address] [place], [place] [address]Dr.Yilan ChangPotassium [Moles/Vol]4.4 mmol/LNormal3.5-5.1The [facility] HospitalComsur[facility] on above:Performed By: #### BMP ####[facility] Qakbevmyvt[address] [place] [address]Dr.Yilan ChangSodium [Moles/Vol]139 mmol/UNwnekz707-966Ygx [facility] on above: Performed By: #### BMP ####[facility] Qreccczqjc[address] [place] [address]Dr.Yilan ChangUrea nitrogen [Mass/Vol]8.0 mg/dLNormal 7.0-18.0The [facility] HospitalComsur[facility] on above:Performed By: #### BMP ####[facility] [address]cfkc[address] [place] [address]Dr. Yilan ChangUrea nitrogen/Creatinine [Mass ratio]9.1 mg/mgNormalThe [facility] HospitalComsur[facility] on above:Performed By: #### BMP ####[facility] Icngjpothv[address] [place], [place] [address]DdDr.Yilan ReganPROTIMEon [id number] Coag (PPP) [Relative time]0.93 {INR}NormalBarnesville Hospital Comment on above:Performed By: #### PT, PTT #### [facility] [address] [address] [address] Owen Osorio GUIDELINESSEE BELOWOhioHealth Riverside Methodist HospitalComment on above:Result Comment: DESIRED INR: 2.0 - 3.0 CONDITIONS NOT LISTED BELOW 2.5 - 3.5 FOR PROSTHETIC HEART VALVE REPLACEMENT 2.5 - 3.5 RECURRENT THROMBOSIS Performed By: #### PT, PTT #### [facility] [address] [address] [address] Owen Rizvi Coag (PPP) [Time]9.9 sNormal9.0-11.6ThGerman Hospital Comment on above:Performed By: #### PT, PTT #### [facility] [address] [address] [address] Owen Lopez [id number] Coag (Bld) [Time]29.2 jNudhhy31.3-36.2[facility] HospitalComment on above:Performed By: #### PT, PTT ####[facility] [address]xsont[address] [address]Dr. Owen ReganXR CHEST 1 Von [id number] CHEST 1 VEXAM: XR CHEST 1 V HISTORY: Cerebrovascular accident [...] Electronically authenticated by: JASON MERINO Date: 2022-09-16 08:42[facility] AUTO DIFFon [id number] #0.0 103/ulNormal0.0-0.1The [facility] HospitalComment on above:Performed By: #### CBC #### [facility] [address] [place] [address] Dr. Owen ReganBasophils/100 WBC (Bld)0.3 %Normal0.2-2.0[facility] Comment on above:Performed By: #### CBC #### [facility] [address] [place] [address] Dr. Owen Perez #0.2 103/ulNormal0.0-0.7The [facility] HospitalComment on above: Performed By: #### CBC #### [facility] [address] [place] [address] Dr. Owen Nunesosinophils/100 WBC (Bld)2.6 %Normal0.9-7.0[facility] Comment on above:Performed By: #### CBC #### [facility] [address] [place] [address] Dr. Owen Nunesrythrocyte distribution width (RBC) [Ratio]13.2 %Prohos92.0-15.0 The [facility] HospitalComment on above:Performed By: #### CBC #### [facility] [address] [place] [address] Dr. Owen ReganHematocrit (Bld) [Volume fraction]39.5 %Gasclc46.0-48.0The [facility] HospitalComment on above:Performed By: #### CBC #### [facility] [address] [place] [address] Dr. Owen ReganHemoglobin (Bld) [Mass/Vol]13.5 g/tHNritoj64.0-16.0The [facility] HospitalComment on above:Performed By: #### CBC #### [facility] [address] [place] [address] Dr. Owen Gerardo #0.05 10e3/ulCritically high0.00-0.03The [facility] Comment on above:Performed By: #### CBC #### [facility] [address] [place] [address] Dr. Owen Gerardo %0.5 %Normal0.0-0.5The [facility] HospitalComment on above: Performed By: #### CBC #### [facility] [address] [place] [address] Dr. Owen Abebe #2.9 103/ulNormal1.2-3.8The [facility] HospitalComment on above:Performed By: #### CBC #### [facility] [address] [place] [address] Dr. Owen Avilahocytes/100 WBC (Bld)31.3 %Fyvwdl89.5-60.0The [facility] HospitalComsurgeons [facility] on above:Performed By: #### CBC #### [facility] [address] [place] [address] Dr. Owen JohnsonUAL DIFF REQNONormalThe [facility] HospitalComment on above: Performed By: #### CBC #### [facility] [address] [place] [address] Dr. Owen Gale (RBC) [Entitic mass]31.3 zeEzbdcj58.7-34.0The [facility] HospitalComment on above:Performed By: #### CBC #### [facility] [address] [place] [address] Dr. Owen Gale (RBC) [Mass/Vol]34.2 g/eAOglqwf71.9-35.2The [facility] on above:Performed By: #### CBC #### [facility] [address] [place] [address] Dr. Owen Gale (RBC) [Entitic vol]91.4 pNSzhfnb87.0-99.0The [facility] HospitalComsur[facility] on above:Performed By: #### CBC #### [facility] [address] [place] [address] Dr. Owen Rubi #0.5 103/ulNormal0.3-0.8The [facility] HospitalComment on above:Performed By: #### CBC #### [facility] [address] [place] [address] Dr. Owen Dicksonocytes/100 WBC (Bld)5.0 %Normal1.7-12.0The [facility] Comment on above:Performed By: #### CBC #### [facility] [address] [place] [address] Dr. Owen WilsonUT #5.6 103/ulNormal1.4-6.5The [facility] HospitalComment on above:Performed By: #### CBC #### [facility] [address] [place] [address] Dr. Owen Wilsonutrophils/100 WBC (Bld)60.3 %Tnouug74.0-75.0The [facility] HospitalComment on above:Performed By: #### CBC #### [facility] [address] [place] [address] Dr. Owen ReganPlatelet mean volume (Bld) [Entitic vol]9.9 fLNormal9.5-13.5The [facility] HospitalComment on above:Performed By: #### CBC #### [facility] [address] [place] [address] Dr. Owen ReganPLT198 103/gqEtnnwj239-322Ahk [facility] HospitalComment on above: Performed By: #### CBC #### [facility] [address] [place] [address] Dr. Owen ReganRBC4.32 106/ulNormal4.20-5.40The [facility] HospitalComment on above:Performed By: #### CBC #### [facility] [address] [place] [address] Dr. Owen ReganWBC9.3 103/ulNormal4.0-11.0The [facility] HospitalComment on above: Performed By: #### CBC #### [facility] [address] [place] [address] Dr. Owen ReganGLYCOHEMOGLOBIN A1Con [id number] RECOMMENDATIONSEE BELOWNormal [facility] HospitalComment on above:Result Comment: ADA RECOMMENDED LIMIT 4.0 - 6.0 ADA THERAPEUTIC TARGET < 7.0 ACTION SUGGESTED > 7.0Performed By: #### A1C ####[facility] [address] [address]Dr. Owen ChangGlucose [Mass/Vol]117 mg/dLOhioHealth Riverside Methodist HospitalComment on above:Performed By: #### A1C ####[facility] [address]mwcq[address] [address]Dr.Owen PgwnwUfH6d (Bld) [Mass fraction]5.7 %Normal 4.5-6.2[facility] HospitalComment on above:Performed By: #### A1C ####[facility] [address] [address]Dr.Owen ChangLIPID PROFILEon [id number]-HDL RATIO NORMSEE [facility] Comment on above:Result Comment: 3.3 - 4.4 LOW RISK 4.4 - 7.1 AVERAGE RISK 7.1 - 11.0 MODERATE RISK >11.0 HIGH RISKPerformed By: #### TSH, T4, CMP, LIPID ####[facility] [address]ffkab[address] [address]Dr. Yimerle ChangCholesterol [Mass/Vol]145 mg/dLNormal<=200The [facility] Comment on above:Performed By: #### TSH, T4, CMP, LIPID ####[facility] [address]ocfn[address] [address]Dr. Yilan ChangCholesterol in HDL [Mass/Vol]34 mg/dLCritically otu72-32Myt [facility] HospitalComment on above: Performed By: #### TSH, T4, CMP, LIPID ####[facility] K[address]axzbalum[address] [address]Dr. Yilan ChangCholesterol in LDL [Mass/Vol]83.0 mg/dLOhioHealth Riverside Methodist HospitalComment on above:Performed By: #### TSH, T4, CMP, LIPID ####[facility] [address]pirsspbm[address] [address]Dr. Yilan ChangCholesterol.total/Cholesterol in HDL [Mass ratio]4.3 {ratio} NormalBarnesville HospitalComment on above:Performed By: #### TSH, T4, CMP, LIPID ####[facility] [address]biopzf[address] [place] [address]Dr. Owen ReganHDL NORMAL> or = 60 mg/dl - LOW CARDIOVASCULAR RISK <40 mg/dl - HIGH CARDIOVASCULAR RISKOhioHealth Riverside Methodist HospitalComment on above: Performed By: #### TSH, T4, CMP, LIPID ####[facility] Uhndxlwqbv[address] [place], [place] [address]Dr. Owen ChangLDL CALC NORMALSEE BELOWNoSt. Francis HospitalComment on above:Result Comment: <100 mg/dl OPTIMAL 100 - 129 mg/dl NEAR OR ABOVE OPTIMAL 130 - 159 mg/dl BORDERLINE HIGH 160 - 189 mg/dl HIGH >190 mg/dl VERY HIGHPerformed By: #### TSH, T4, CMP, LIPID ####[facility] Tezogrnsnu[address] [place], [place] [address]Dr. Owen ReganTriglyceride [Mass/Vol]140 mg/dLNormal<=150The [facility] HospitalComsurgeons [facility] on above:Performed By: #### TSH, T4, CMP, LIPID ####[facility] Boskyznsxs[address] [place], [place] [address]Dr. Owen ReganVLDL CALC28.0 mg/dLNoSt. Francis HospitalComment on above:Performed By: #### TSH, T4, CMP, LIPID ####[facility] Gpyrmvknpb[address] [place], [place] [address]Dr. Owen ReganPROF 14(COMP METB)on [id number] [Mass/Vol]3.6 g/dLNormal3.4-5.0[facility] HospitalComment on above:Performed By: #### TSH, T4, CMP, LIPID ####[facility] Odirdifjvx[address] [place], [place] [address]Dr. Owen Regan Albumin/Globulin [Mass ratio]1.1 {ratio}NormalThe [facility] HospitalComment on above:Performed By: #### TSH, T4, CMP, LIPID ####[facility] [address]rdedrxppu[address] [address]Dr. Yilan ChangALP [Catalytic activity/Vol]81 U/NUraxbs15-089Iaf [facility] Community Hospitalment on above:Performed By: #### TSH, T4, CMP, LIPID ####[facility] [address]qemnve[address] [address]Dr. Yilan ChangALT [Catalytic activity/Vol]37 U/L Yfnoek02-35Azh [facility] HospitalComment on above:Performed By: #### TSH, T4, CMP, LIPID ####[facility] [address]chbklu[address] [address]Dr. Yilan ChangAnion gap [Moles/Vol]10.2 mmol/LNormalThe [facility] Comment on above:Performed By: #### TSH, T4, CMP, LIPID ####[facility] Kuubcerelv[address] [place], [place] [address]Dr. Yilan ChangAST [Catalytic activity/Vol]14 U/LCritically tux51-93Usj [facility] Hospitalment on above: Performed By: #### TSH, T4, CMP, LIPID ####[facility] T[address]whwlgp[address] [address]Dr. Yilan ChangBilirubin [Mass/Vol]0.2 mg/dL Normal0.2-1.0The [facility] HospitalComsurgeons [facility] on above:Performed By: #### TSH, T4, CMP, LIPID ####[facility] Uhemzzhtcn[address] [place], [place] [address]Dr. Yilan ChangCalcium [Mass/Vol]8.8 mg/dLNormal8.5-10.1The [facility] HospitalComment on above:Performed By: #### TSH, T4, CMP, LIPID ####[facility] Jaqguyxxbh60[address] [place], [place] [address]Dr. Yilan Regan Chloride [Moles/Vol]104 mmol/VRezbqs67-935Pwx [facility] on above: Performed By: #### TSH, T4, CMP, LIPID ####[facility] Gkowovxocv[address] [place], [place] [address]Dr. Yilan ChangCO2 [Moles/Vol]27.8 mmol/LNormal 21.0-32.0The [facility] HospitalComment on above:Performed By: #### TSH, T4, CMP, LIPID ####[facility] [address]rbsvat[address] [address]Dr. Yilan ChangCreatinine [Mass/Vol]0.77 mg/dLNormal0.55-1.02The [facility] HospitalComment on above:Performed By: #### TSH, T4, CMP, LIPID ####[facility] Iunmzkclda[address] [place], [place] [address]Dr. Yilan ChangEGFR- AF MOLDOVAN>60Normal>=60The [facility] HospitalComment on above:Performed By: #### TSH, T4, CMP, LIPID ####[facility] Pbvjppbyeh[address] [place], [place] [address]Dr. Yilan ChangEGFR-NON AF MOLDOVAN>60Normal>=60The [facility] Hospitalment on above:Performed By: #### TSH, T4, CMP, LIPID ####[facility] Xljvxytmaz[address] [place], [place] [address]Dr. Yilan ChangGlobulin (S) [Mass/Vol]3.3 g/dLNormalThe [facility] HospitalComment on above:Performed By: #### TSH, T4, CMP, LIPID ####[facility] Rigkmuylxh[address] [place], [place] [address]Dr. Yilan ChangGlucose [Mass/Vol]104 mg/cMIsdvhs13-245Eta [facility] Community Hospitalment on above:Performed By: #### TSH, T4, CMP, LIPID ####[facility] Xfygzvlbfe[address] [place], [place] [address]Dr. Yilan ChangPotassium [Moles/Vol]4.0 mmol/LNormal 3.5-5.1The [facility] HospitalComment on above:Performed By: #### TSH, T4, CMP, LIPID ####[facility] Wlntwlsrpe[address] [place], [place] [address]Dr. Yilan ChangProtein [Mass/Vol]6.9 g/dLNormal6.4-8.2The [facility] Comment on above:Performed By: #### TSH, T4, CMP, LIPID ####[facility] Rxoyxegztu[address] [address]Dr. Owen ChangSodium [Moles/Vol]138 mmol/YFsqwqc078-879Inj [facility] HospitalComment on above: Performed By: #### TSH, T4, CMP, LIPID ####[facility] [address]vwwqrpz[address] [address]Dr. Yilan ChangUrea nitrogen [Mass/Vol]10.0 mg/dLNormal7.0-18.0The [facility] HospitalComment on above:Performed By: #### TSH, T4, CMP, LIPID ####[facility] [address]qlwfv[address] [address]Dr. Yilan ChangUrea nitrogen/Creatinine [Mass ratio]13.0 mg/mgNormal The [facility] HospitalComment on above:Performed By: #### TSH, T4, CMP, LIPID ####[facility] Frrxrkopjd[address] [address]Dr. Katelinlan FwkdxI9vg [id number] [Mass/Vol]9.60 ug/dLNormal4.80-13.90The [facility] HospitalComment on above:Performed By: #### TSH, T4, CMP, LIPID ####[facility] [facility] [address] [address]Dr. Owen ChangTSHon 09-29-5239ZYZ0.441 uIU/mLNormal0.358-3.740The [facility] HospitalComment on above:Performed By: #### TSH, T4, CMP, LIPID ####[facility] [address] [place], [place] [address]Dr. Yilan ChangMG MAMM SCREEN 3D MARCIO CADon [id number] MAMM SCREEN 3D MARCIO CADPatient: ANHVALERIE Exam Date: 07/01/2022 : 1980 Gender:F Ordering : DR MIKIE CARBAJAL D.O. Admission #: [id number] Family : Order #: [id number] CLICK HERE TO VIEW EXAM RADIOLOGY REPORT PROCEDURE: MAMMOGRAM SCREENING 3D BILATERAL CAD COMPARISON: None. INDICATIONS: Screening mammography Calculator Name NCI Breast Cancer Risk Assessment Tool 5 Year Breast Cancer Risk 0.50% Lifetime Breast Cancer Risk 9.00% Personal Breast Cancer No Personal Ovarian Cancer No Treatments None Family Cancers None LOCATION: [facility] BREAST COMPOSITION: Extremely dense, which lowers the sensitivity of mammography. FINDINGS: DIAGNOSTIC CATEGORY 1--NEGATIVE. RIGHT BREAST: No significant suspicious finding. LEFT BREAST: No significant suspicious finding. RECOMMENDATIONS: ROUTINE MAMMOGRAM AND CLINICAL EVALUATION IN 12 MONTHS. PLEASE NOTE: A NORMAL MAMMOGRAM DOES NOT EXCLUDE THE POSSIBILITY OF BREAST CANCER. A CLINICALLY SUSPICIOUS PALPABLE LUMP SHOULD BE BIOPSIED. Dictated by: Oh Rutledge M.D. on 07/02/2022 at 07:53 Approved by: Oh Rutledge M.D. on 07/02/2022 at 07:56[facility] HospitalBNPon 29-37-8064Bmitrdgenmq peptide B (Bld) [Mass/Vol]41.0 pg/mLNormal <=450.0[facility] HospitalComment on above:Performed By: #### CMADM, CMP, BNP #### [facility] [address] [place] [address] Dr. Owen Black DEDE ADMITon 06-61-1908BJ [Catalytic activity/Vol]90 U/L Knndht90-994OztBarnesville HospitalComment on above:Performed By: #### CMADM, CMP, BNP #### [facility] [address] [address] [address] Owen Navarro.MB [Mass/Vol]0.87 ng/mLNormal<=3.60[facility] Comment on above:Performed By: #### CMADM, CMP, BNP #### [facility] [address] [address] [address] Owen Flores<4.0Rlrsim8.0-51.3The [facility] HospitalComsurgeons choice medical center on above: Result Comment: CUT-OFF POINTS HAVE BEEN ESTABLISHED BASED ON THE FOURTH UNIVERSAL DEFINITIONS OF MYOCARDIAL INFARCTION. THE UPPER REFERENCE LIMIT (URL) OF TROPONIN, DEFINED THE 99TH PERCENTILE OF cTnI DISTRIBUTION IN A REFERENCE POPULATION, HAS BEEN CONFIRMED THE DECISION THRESHOLD FOR ME DIAGNOSIS.Performed By: #### CMADM, CMP, BNP #### [facility] [address] [address] [address] Owen ReganMYO43 ng/mLNormal9-82The [facility] HospitalComment on above: Performed By: #### CMADM, CMP, BNP #### [facility] [address] [address] [address] Owen Domingo AUTO DIFFon 08-95-8754BKIU #0.0 103/ulNormal0.0-0.1The [facility] HospitalComment on above:Performed By: #### CBC #### [facility] [address] [address] [address] Owen ReganBasophils/100 WBC (Bld)0.3 %Normal0.2-2.0[facility] Comment on above:Performed By: #### CBC #### [facility] [address] [place] [address] Dr. Owen Perez #0.2 103/ulNormal0.0-0.7The [facility] HospitalComment on above: Performed By: #### CBC #### [facility] [address] [address] [address] Owen Nunesosinophils/100 WBC (Bld)1.5 %Normal0.9-7.0[facility] Comment on above:Performed By: #### CBC #### [facility] [address] [place] [address] Dr. Owen Nunesrythrocyte distribution width (RBC) [Ratio]13.1 %Xcnrkv08.0-15.0 [facility] HospitalComment on above:Performed By: #### CBC #### [facility] [address] [address] [address] Owen ReganHematocrit (Bld) [Volume fraction]41.3 %Csrklk93.0-48.0[facility] HospitalComment on above:Performed By: #### CBC #### [facility] [address] [address] [address] Owen ReganHemoglobin (Bld) [Mass/Vol]14.3 g/pNRpiful85.0-16.0[facility] HospitalComment on above:Performed By: #### CBC #### [facility] [address] [place] [address] Dr. Owen Gerardo #0.03 10e3/ulNormal0.00-0.03The [facility] HospitalComment on above:Performed By: #### CBC #### [facility] [address] [place] [address] Dr. Owen Gerardo %0.2 %Normal0.0-0.5The [facility] HospitalComment on above: Performed By: #### CBC #### [facility] [address] [place] [address] Dr. Owen Abebe #3.7 103/ulNormal1.2-3.8The [facility] HospitalComment on above:Performed By: #### CBC #### [facility] [address] [place] [address] Dr. Owen Avilahocytes/100 WBC (Bld)30.5 %Wkobku36.5-60.0The [facility] HospitalComment on above:Performed By: #### CBC #### [facility] [address] [place] [address] Dr. Owen JohnsonUAL DIFF REQNONormalThe [facility] HospitalComment on above: Performed By: #### CBC #### [facility] [address] [place] [address] Dr. Owen Gale (RBC) [Entitic mass]31.5 ubPcblyf37.7-34.0The [facility] HospitalComment on above:Performed By: #### CBC #### [facility] [address] [place] [address] Dr. Owen Gale (RBC) [Mass/Vol]34.6 g/uWDdnmjk78.9-35.2The [facility] HospitalComment on above:Performed By: #### CBC #### [facility] [address] [place] [address] Dr. Owen Gale (RBC) [Entitic vol]91.0 bKNpgwjt82.0-99.0The [facility] HospitalComment on above:Performed By: #### CBC #### [facility] [address] [place] [address] Dr. Owen Rubi #0.7 103/ulNormal0.3-0.8The [facility] HospitalComment on above:Performed By: #### CBC #### [facility] [address] [place] [address] Dr. Owen Dicksonocytes/100 WBC (Bld)5.6 %Normal1.7-12.0The [facility] Comment on above:Performed By: #### CBC #### [facility] [address] [place] [address] Dr. Owen Kovacs #7.5 103/ulCritically high1.4-6.5The [facility] Comment on above:Performed By: #### CBC #### [facility] [address] [place] [address] Dr. Owen Wilsonutrophils/100 WBC (Bld)61.9 %Plrhwd68.0-75.0[facility] HospitalComment on above:Performed By: #### CBC #### [facility] [address] [place] [address] Dr. Owen Mahmood mean volume (Bld) [Entitic vol]10.3 fLNormal9.5-13.5The [facility] HospitalComment on above:Performed By: #### CBC #### [facility] [address] [place] [address] Dr. Owen PandaT229 103/suDdpzut350-321Glm [facility] HospitalComment on above: Performed By: #### CBC #### [facility] [address] [place] [address] Dr. Owen RomeroC4.54 106/ulNormal4.20-5.40The [facility] HospitalComment on above:Performed By: #### CBC #### [facility] [address] [place] [address] Dr. Owen ReganWBC12.1 103/ulCritically high4.0-11.0The [facility] Hospitalment on above:Performed By: #### CBC #### [facility] [address] [place] [address] Dr. Owen ReganCT CHEST WO CONon 83-39-0687AP CHEST WO CONEXAM: CT CHEST WO CON TECHNIQUE: Axial CT images were obtained of the chest without intravenous contrast administration. Sagittal and coronal reformatted images were also obtained. Dose reduction techniques were achieved by using automated exposure control and/or adjustment of mA and/or kV according to patient size and/or use of iterative reconstruction technique. HISTORY: COUGH COMPARISON: None. FINDINGS: Neck and Axilla: No lower neck [...] Electronically authenticated by: RABIA MARTINEZ Date: 2022-06-29 21:16[facility] HospitalPROF 14(COMP METB)on 88-96-2522Uxpoeik [Mass/Vol]3.9 g/dLNormal 3.4-5.0The [facility] Hospitalment on above:Performed By: #### CMADM, CMP, BNP #### [facility] [address] [place] [address] [address] [address] Owen ReganAlbumin/Globulin [Mass ratio]1.2 {ratio}NormalThe [facility] on above:Performed By: #### CMADM, CMP, BNP #### [facility] [address] [place] [address] [address] [address] Owen ReganALP [Catalytic activity/Vol]86 U/HIawmec63-514Qxz Caesar HospitalComment on above:Performed By: #### CMADM, CMP, BNP #### [facility] [address] [address] [address] Owen Bradford [Catalytic activity/Vol]47 U/FKdgdnh30-82Due [facility] HospitalComment on above:Performed By: #### CMADM, CMP, BNP #### [facility] [address] [place] [address] Dr. Owen Negreteon gap [Moles/Vol]15.7 mmol/LNormalThe [facility] Comment on above:Performed By: #### CMADM, CMP, BNP #### [facility] [address] [place] [address] Dr. Owen Morocho [Catalytic activity/Vol]25 U/THtybis78-81Dnf [facility] HospitalComment on above:Performed By: #### CMADM, CMP, BNP #### [facility] [address] [place] [address] Dr. Owen ReganBilirubin [Mass/Vol]0.3 mg/dLNormal0.2-1.0The [facility] Comment on above:Performed By: #### CMADM, CMP, BNP #### [facility] [address] [place] [address] Dr. Owen ReganCalcium [Mass/Vol]9.4 mg/dLNormal8.5-10.1[facility] Comment on above:Performed By: #### CMADM, CMP, BNP #### [facility] [address] [place] [address] Dr. Owen ReganChloride [Moles/Vol]105 mmol/ECvfenw51-999Ovw [facility] Comment on above:Performed By: #### CMADM, CMP, BNP #### [facility] [address] [place] [address] Dr. Owen ReganCO2 [Moles/Vol]24.0 mmol/VGuwhbl17.0-32.0[facility] Comment on above:Performed By: #### CMADM, CMP, BNP #### [facility] [address] [place] [address] Dr. Owen ReganCreatinine [Mass/Vol]0.82 mg/dLNormal0.55-1.02[facility] HospitalComment on above:Performed By: #### CMADM, CMP, BNP #### [facility] [address] [address] [address] Owen NunesGFR-AF MOLDOVAN>60Normal>=60The [facility] HospitalComment on above:Performed By: #### CMADM, CMP, BNP #### [facility] [address] [address] [address] Owen NunesGFR-NON AF MOLDOVAN>60Normal>=60The [facility] HospitalComment on above:Performed By: #### CMADM, CMP, BNP #### [facility] [address] [address] [address] Owen ReganGlobulin (S) [Mass/Vol]3.3 g/dLNormalThe [facility] HospitalComment on above:Performed By: #### CMADM, CMP, BNP #### [facility] [address] [address] [address] Owen ReganGlucose [Mass/Vol]101 mg/iKWsczhn68-074ZyaBarnesville Hospital Comment on above:Performed By: #### CMADM, CMP, BNP #### [facility] [address] [address] [address] Owen ReganPotassium [Moles/Vol]3.7 mmol/LNormal3.5-5.1[facility] Comment on above:Performed By: #### CMADM, CMP, BNP #### [facility] [address] [address] [address] Owen ReganProtein [Mass/Vol]7.2 g/dLNormal6.4-8.2The [facility] Comment on above:Performed By: #### CMADM, CMP, BNP #### [facility] [address] [address] [address] Owen ReganSodium [Moles/Vol]141 mmol/LLsmfer784-641Qmf [facility] Comment on above:Performed By: #### CMADM, CMP, BNP #### [facility] [address] [address] [address] Owen ReganUrea nitrogen [Mass/Vol]10.0 mg/dLNormal7.0-18.0[facility] on above:Performed By: #### CMADM, CMP, BNP #### [facility] [address] [address] [address] Owen ReganUrea nitrogen/Creatinine [Mass ratio]12.2 mg/mgNoSt. Francis HospitalComment on above:Performed By: #### CMADM, CMP, BNP #### [facility] [address] [address] [address] Owen ReganXR CHEST 1 Von 19-67-1315XF CHEST 1 VEXAMINATION: XR CHEST 1 V HISTORY: Cough COMPARISON: None. TECHNIQUE: Portable chest FINDINGS: The lung parenchyma is free of consolidation or infiltrate. No pneumothorax or pleural effusion. The cardiac, mediastinal and hilar contours are normal. The visualized osseous structures exhibit no gross abnormality. IMPRESSION: No acute cardiopulmonary abnormality. Electronically authenticated by: MANPREET PRICE Date: 2022-06-29 20:19[facility] ACOG PANEL 2: 30 to 65on 05-17-2022..NormalThe [facility] on above:Result Comment: Performed at: WBPerformed By: #### [id number] ####[facility] [address] [address]DrRachelle Desir Gdln ACOG Kreqcfo63-54NixspnYueCleveland Clinic Mentor Hospital on above:Performed By: #### [id number] ####[facility] [address] [address]DrRachelle ReganDIAGNOSIS:CommentSelect Medical Specialty Hospital - [facility] on above:Result Comment: NEGATIVE FOR INTRAEPITHELIAL LESION OR MALIGNANCY. Performed at: WBPerformed By: #### [id number] ####[facility] [address] [address]DrRachelle ReganHPV AptimaNegativeNormal NegativeThe [facility] on above:Result Comment: This nucleic acid amplification test detects fourteen high-risk HPV types (16,18,31,33,35,39,45,51,52,56,58,59,66,68) without differentiation. Performed at: =GPerformed By: #### [id number] ####[facility] [address] [place], [place] [address]Dr. Owen ReganHPV Genotype ReflexComment NormalAultman Alliance Community Hospital on above:Result Comment: Criteria not met, HPV Genotype not performed. Performed at: WBPerformed By: #### [id number] [address] [address]Dr. Owen ReganMethodology:CommentSelect Medical Specialty Hospital - [facility] on above:Result Comment: This liquid based ThinPrep(R) pap test was screened with the use of an image guided system. Performed at: WBPerformed By: #### [id number] ####[address] [address]Dr. Owen ReganNote:CommentSelect Medical Specialty Hospital - [place] on above:Result Comment: The Pap smear is a screening test designed to aid in the detection of premalignant and malignant conditions of the uterine cervix. It is not a diagnostic procedure and should not be used as the sole means of detecting cervical cancer. Both false-positive and false-negative reports do occur. . Performed at: WBPerformed By: #### [id number] ####[facility] [address] [place], [place] [address]Dr. Owen ChangPerformed by:CommentSelect Medical Specialty Hospital - [facility] on above:Result Comment: Bee Doyle, Motor Installer (ASCP) Performed at: WBPerformed By: #### [id number] ####[address] [address]Dr. Owen ReganSpecimen adequacy:Comment NormalAultman Alliance Community Hospital on above:Result Comment: Satisfactory for evaluation. Endocervical and/or squamous metaplastic cells (endocervical component) are present. Performed at: WBPerformed By: #### [id number] ####[facility] [address] [place], [place] [address]DrRachelle ReganCOVID/FLU/RSV RT-PCRon 75-31-9520XBGS-CoV-2 (COVID-19) RNA JACK+probe Ql (Unsp spec)PositiveNort [facility] Other COVID/FLU/RSV RT-PCRNegativeNort [facility] Other COVID Quick Testingon 41-30-2740GkvvkjFsmyfxnyMdshj [facility] Other Vital Signs Date TimeVital SignValuePerforming TftbsxwrpWbvnfmxm00-67-2991 16:12-0400 Diastolic blood xwguhpxm86 mm[Hg]Izzy Edgar PRODUCTION SUPERVISOR TRAINEE-C Work Phone: [phone]10-30-2025 16:12-0400 Heart rate81 /minJodi Edgar PRODUCTION SUPERVISOR TRAINEE-C Work Phone: [phone]10-30-2025 16:12-0400 Systolic blood ecrmuigd680 mm[Hg]Izzy Edgar PRODUCTION SUPERVISOR TRAINEE-C Work Phone: [phone] [address]07-28-2025 16:00-0400 Body .86 cmJodi Edgar PRODUCTION SUPERVISOR TRAINEE-C Work Phone: [phone] [address]07-28-2025 16:00-0400 Body mass index (BMI) [Ratio]41.8 kg/m2Jodi Edgra PRODUCTION SUPERVISOR TRAINEE-C Work Phone: [phone]07-28-2025 16:00-0400 Body phmyqp09.89 kgJodi Edgar PRODUCTION SUPERVISOR TRAINEE-C Work Phone: [phone]07-28-2025 16:00-0400 Diastolic blood aemscgly43 mm[Hg]Izzy Edgar PRODUCTION SUPERVISOR TRAINEE-C Work Phone: [phone]07-28-2025 16:00-0400 Heart rate94 /minJodi Edgar PRODUCTION SUPERVISOR TRAINEE-C Work Phone: [phone] [place], [place] [address]07-28-2025 16:00-0400 Systolic blood ofbkxvtp820 mm[Hg]Izzy Hernández PRODUCTION SUPERVISOR TRAINEE-C Work Phone: [facility]05-14-2025 15:40-0400 Body bkwsej128.9 cmAalejandrina Toney PA Work Phone: NOUniversity of [facility] Children's HospitalCmoethghul60-57-5666 15:40-0400Body mass index (BMI) [Ratio]41.81 kg/m2Martha Toney PA Work Phone: NOUniversity of [facility]'s HospitalRvequjyxao25-35-5422 15:40-0400Body ingucc47.89 kgMartha Toney PA Work Phone: NOUniversity of [facility]'s HospitalIwmrprnbcc86-40-5257 15:40-0400Diastolic blood mm[Hg]Martha Toney PA Work Phone: NOUniversity of [facility]'s HospitalWwufjztqbl21-42-2862 15:40-0400Heart rate88 /min Martha MOLINA Work Phone: [facility] CenterDfdjeiqgeq51-18-6911 15:40-0400Respiratory rate16 /minMartha Toney PA Work Phone: noUniversity of [facility] Children's HospitalNufdaiefmg61-41-6199 15:40-8978BfX0% (BldA) [Mass fraction]93 %Martha Toney PA Work Phone: NOUniversity of [facility]'s HospitalPupenpzmvd53-64-1570 15:40-0400Systolic blood pzxqsilj956 mm[Hg]Martha Toney PA Work Phone: NOUniversity of [facility]'s HospitalKcakmhnexe44-81-7075 16:17-0400Body zvqida896.9 cmFesvitlana Lantigua PRODUCTION SUPERVISOR TRAINEE Work Phone: NOUniversity of [facility] Children's HospitalFiolqwjdzh51-37-5598 16:17-0400Body mass index (BMI) [Ratio]40.8 kg/a7Ozvjrtosvitlana Lantigua PRODUCTION SUPERVISOR TRAINEE Work Phone: NOUniversity of [facility]'s HospitalFcgdcjlxou00-72-9937 16:17-0400Body marmcm53.63 kgFesvitlana Lantigua PRODUCTION SUPERVISOR TRAINEE Work Phone: NOUniversity of [facility] Children's HospitalNdcgjlshib88-33-7191 16:17-0400Diastolic blood bfnbedrs36 mm[Hg]Jesús Lantigua PRODUCTION SUPERVISOR TRAINEE Work Phone: noUniversity of [facility] Children's HospitalDossthumhn55-82-9081 16:17-0400Heart rate85 /min Jesús Lantigua PRODUCTION SUPERVISOR TRAINEE Work Phone: noUniversity of [facility] Children's HospitalGnkdkwnmmd19-81-0969 16:17-0400Systolic blood qnjaapqy580 mm[Hg]Jesús Lantigua PRODUCTION SUPERVISOR TRAINEE Work Phone: noUniversity of [facility] Children's HospitalDtzwjuyehz78-36-3048 15:15-0400Body fvxavp135.86 cmAc[address] Other noBlack coin [facility] Other 11-03-2023 15:15-0400Body mass index (BMI) [Ratio] 43.18 kg/r3PpwrqSilva [address] Other noToutiao Other 11-03-2023 15:15-0400Body vmnmdauyhcz06.1 [degF]Silva [address] Other [facility] Other 11-03-2023 15:15-0400Body cunfnb57.98 kgSilva [address] Other [facility] Other 11-03-2023 15:15-0400Respiratory rate18 /minSilva [address] Other [facility] Other 11-03-2023 15:15-6362QzD7% (BldA) [Mass fraction]97 % Silva [address] Other noToutiao Other 07-23-2022 14:00-0400Body myhqqx000.86 Jamison Urbina Other [facility] Other 07-23-2022 14:00-0400Body mass index (BMI) [Ratio]41 kg/f3Dppelxyoan Urbina Other [facility] Other 07-23-2022 14:00-0400Body cvcozjlebvt66.8 [degF]Keri Urbina Other [facility] Other 07-23-2022 14:00-0400Body uvaprh56.08 kgKeri Urbina Other [facility] Other 07-23-2022 14:00-6523ExC3% (BldA) [Mass fraction]98 % Keri Urbina Other [place] [facility] Other 11-28-2021 13:20-0500Body yelopi092.86 cmCumang Al Other [facility] Other 11-28-2021 13:20-0500Body mass index (BMI) [Ratio]41.2 kg/a9KugfouMary Al Other [facility] Other 11-28-2021 13:20-0500Body .1 [degF]Mary Al Other [facility] Other 11-28-2021 13:20-0500Body mgobdn13.53 kgMary Al Other [facility] Other 11-28-2021 13:20-0500Respiratory rate16 /minMary Al Other [facility] Other 11-28-2021 13:20-5485VmB5% (BldA) [Mass fraction]98 % Mary Al Other [facility] Other Encounters Encounter DateEncounter TypeCare ProviderFacilityStart: 02-21-2025 End: 19-61-2788ghtuhntajqZaix Lynn Schwab PRODUCTION SUPERVISOR TRAINEE-C Work Phone: -[facility] BellevueStart: 02-21-2025 End: 90-92-9645Whpkosf encounter procedureEstee Sim CREW FOREMAN-[facility] Work Phone: Start: 02-20-2025 End: 43-08-6042zkdkhvmleqWtzt L SchwabFacility:FTMCStart: 02-20-2025 End: 14-80-6488xmjhnmpajvXacf L SchwabFacility:FT BellevueStart: 01-17-2025 End: 03-62-1933lxbghyroajJBSZ J [facility]: 11-19-2024 End: 51-30-5196zibpbkvqmqUmme Lynn Schwab PRODUCTION SUPERVISOR TRAINEE-C Work Phone: [facility] Work Phone: Start: 11-19-2024 End: 86-28-4934Atkadin encounter procedureEstee Sim CREW FOREMAN-[facility] [place] Work Phone: Start: 10-29-2024 End: 11-77-7134owbltxofrjHobi Lynn Schwab PRODUCTION SUPERVISOR TRAINEE-C Work Phone: [facility] Work Phone: Start: 10-29-2024 End: 79-84-2439Qbtqnby encounter procedureQing Jaffe DO-[facility] [place] Work Phone: Start: 10-11-2024 End: 93-84-4083tsqackrhlrTAXY J [facility] Healthtart: 09-21-2024 End: 03-50-9339meqlspvsejLfth L SchwabFacility:[facility] BellevueStart: 09-05-2024 End: 14-01-8906Ispmqm outpatient visit 25 minutesAnnRh[facility] Hospital JESSE Work Phone: ANA BELLEVUEComment on above: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) (Primary Dx); PLMD (periodic limb movement disorder); Migraine without aura and without status migrainosus, not intractable (CMS/HCC); Right arm pain; ParesthesiaStart: 09-05-2024 End: 92-11-1619nrrmahvijcWQMO HILLResearch [facility] Center[facility] AvailableStart: 09-05-2024 End: 39-73-7443Ubqlva Dale Medical Centerconi MOLINA Work Phone: aNA BELLEVUEStart: 09-05-2024 End: 76-44-4070Onqodn flowsheetAnnconi Tremont JESSE Work Phone: aNA MECHANICVILLEEVUEStart: 13-96-1471dyddaopovhGQTZVXProvidence [facility] Center Ambulatory PPGStart: 07-06-2024 End: 74-04-8739nqlwskghvgHYPCFormerly [facility] HospitalStart: 05-04-2024 End: 62-36-4100nchkrvhazlPbyi L SchwabFacility:FT BellevueStart: 04-13-2024 [facility] Ambulatory PPGStart: 04-13-2024 End: 21-88-1444hsleugjgypOQRJFormerly [facility] HospitalStart: 03-07-2024 End: 87-42-6997dmntqgjhueZHYQYTE GRZEGORZFacility:FTMCStart: 03-07-2024 End: 83-73-5405Osgrsao encounter procedureFELICIA GRZEGORZ [facility] Start: 03-07-2024 End: 78-72-6267Untngdzyb Result EncounterFelicia C Grzegorz PRODUCTION SUPERVISOR TRAINEE Work Phone: noms External Department UnsolicitedStart: 03-07-2024 End: 04-80-0279Yaylycurx Result EncounterFelicia C Grzegorz PRODUCTION SUPERVISOR TRAINEE Work Phone: noms External Department UnsolicitedStart: 02-28-2024 End: 71-53-2333pyzfmlqoqoJkuc L SchwabFacility:FT BellevueStart: 02-21-2024 End: 94-90-6603Qivifc outpatient visit 25 minutesFesvitlana Modigabogel PRODUCTION SUPERVISOR TRAINEE Work Phone: noFOSTORIA CITY [facility]OSPITAL ROUTEComment on above:PLMD (periodic limb movement disorder) (Primary Dx); Migraine without aura and without status migrainosus, not intractable (CMS/HCC); 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)Start: 02-21-2024 End: 42-59-3843yhtbbzitrqJIVJZZO C WINDNAGELNot AvailableStart: 02-21-2024 End: 47-87-0688Ywgfhn flowsheetFelicia C Windnagel PRODUCTION SUPERVISOR TRAINEE Work Phone: noms [facility] ROUTEStart: 02-21-2024 End: 13-07-2597Gbzipi flowsheetFelicia C Windnagel PRODUCTION SUPERVISOR TRAINEE Work Phone: noFOSTORIA CITY [facility]PITAL ROUTEStart: 09-08-2023 End: 50-61-1640cpurhowmcwCTLVWHK C WINDNAGELNot AvailableStart: 08-31-2023 End: 04-92-6620Beh Drop offJodi L Edgar [facility] Start: 08-31-2023 End: 50-68-0260reocucodzyApty L SchwabFacility:FTMCStart: 08-17-2023 End: 65-95-6558yqldjcozjdZavp L SchwabFacility:FT FM BellevueStart: 06-07-2023 End: 34-10-4968ygzvtwqcjgQgxm L SchwabFacility:FT BellevueStart: 05-03-2023 End: 38-61-0882lwymydjybrHeuk L SchwabFacility:FT BellevueStart: 02-25-2023 End: 67-63-5883jghmfcngdmOycug Keller Other [place] Other Start: 02-66-3059Xgidtt outpatient visit 25 minutes Silva MannyFPG [facility] ClydeStart: 09-16-2022 End: 48-39-5526htcsrrbzsjAVQZAHJ D KATKOFacility:Y4Yfuuz: 77-26-1698Ehdbgbjly for general adult medical examination without abnormal findingsDR MIKIE CARBAJAL [facility] HospitalStart: 07-29-2022 End: 33-09-5988rastzcpurpQT MIKIE CARBAJALFacility:R4Vkfje: 07-29-2022 End: 68-50-5472Lebfzdxvi for general adult medical examination without abnormal findingsDR MIKIE CARBAJALFacility:Q4Ouoxs: 07-01-2022 End: 90-34-8164eakevshfcvYV MIKIE CARBAJALFacility:W1Wopad: 06-29-2022 End: 89-14-1796prdksrwwaqFG MIKIE HOWEY IN THE HILLSFacility:R7Vqjsj: 05-12-2022 End: 83-73-9057empgierpmxKV AMY MAN .Facility:X8Axcny: 11-14-2021 End: 47-28-5427hwbjrdpsvcFwzdes Dymond Other noBlack coin Locai Other Start: 09-99-1571Zkoqwi outpatient visit 15 minutes Keri UrbinaFPG [facility]gent Care ClydeStart: 03-22-2021 End: 95-17-2695zoiyolovhqQvixqj Taylor Other noBlack coin Locai Other Start: 64-59-5202Bjlpvi outpatient new 20 minutes Mary AlFPG [facility] Pine Ridge RoadStart: 08-16-2018 End: 91-23-7342Brholjl encounter procedureDEFAULT PHYSICIANFacility:[facility] Procedures DateProcedureProcedure DetailPerforming ClinicianStart: 12-42-5567ANMZ PLT FUNCTION ASSAYFelicia Michelle Lantigua PRODUCTION SUPERVISOR TRAINEE Work Phone: Start: 18-26-4398Prjwgtee procedureJodi Edgar Start: 72-94-4058GowaloduafvgYjhz Edgar Start: 07-78-6248Twabmqwn sectionJodi Edgar Start: 17-02-6361Ooosntzy sectionJodi Edgar Start: 26-57-2197RlbjxeuputvybfoBfri Edgar Start: 14-54-0269Nqkgozqr sectionJodi Edgar Plan of Treatment DateCare ActivityDetailAuthorStart: 11-19-2024 End: 82-45-2667Hghhsfs encounter qqfpvfosd80/28/2025 4:00 PM EDT Office Visit SHANTELLE MAYNARD [address] [place] [phone] Estee Blanco NP [address] [place], [place] SHANTELLE LAZOEVUEStart: 10-29-2024 End: 07-31-3011Nnfrwdd encounter /07/2025 3:30 PM EDT Procedure Visit SHANTELLE MAYNARD [address] [place] [phone] Qing Jaffe DO [address] [place], [place] [id number] SHANTELLE LAZOEVUEStart: 09-05-2024 End: 21-12-5766Mkxukxx encounter sifvtazae54/14/2025 3:40 PM EDT Office Visit SHANTELLE MAYNARD [address] [place] [phone] [place] Toney [place] [address] [place] [address] Manjit MAYNARDComment on above:ArrivedStart: 09-05-2024 End: 49-17-2297AHR 2 ExtremitiesEMG 2 Extremities Neurology Routine Right arm pain Paresthesia Expected: 09/05/2024 (Approximate), Expires: 09/05/2025[facility] Work Phone: comment on above:Expected: 09/05/2024 (Approximate), Expires: 09/05/2025Start: 08-07-2024 End: 53-61-0932Kefqdfa encounter ustpcaznx88/15/2025 4:20 PM EDT Office Visit [facility] [address] [facility] [address] [place] [address], [place] [address] Martha Toney PA [address] [place], [place] [id number] [facility] ROUTEStart: 02-21-2024 End: 87-81-7171Rlwbjkt encounter /29/2024 4:20 PM EDT Office Visit [facility] [address] [place], [place] [address], [place] [address] Jesús Lantigau NP [address] [place], [place] [id number] ArrivedAVITA HEALTH SYSTEM ROUTEComment on above:ArrivedStart: 02-21-2024 End: 15-58-5372YFVHFZOU INHIBITION, ASA ([place])PLATELET INHIBITION, [facility] ([place]) Lab Routine Cerebral infarction due to embolism of bilateral po sterior cerebral arteries (CMS/HCC) Expected: 02/21/2024 (Approximate), Expires: 02/20/2025[facility] Work Phone: comment on above:Expected: 02/21/2024 (Approximate), Expires: 02/20/2025 Payers DatePayer CategoryPayerPolicy [id number] [facility] CampusBS Member Subscriber Plan / Payer (Effective 2019-Present) Name: Valerie Kamara Relation to Subscriber: Spouse Name: ANHMANSOOR Lawrence Date of : 1983 (Home) Address: [address] [place] [address] Payer ID: Not on file Type: Not on file Address: [facility] [address] [place] [id number] [id number] 2.16840.1.239958.3.57[id number] 2.840.1.397596.3.57[id number] 2.0.1.368351.3.57[id number] 2.840.1.366468.3.57[id number] 2.0.1.496311.3.57[id number] 2.840.1.679936.3.57[id number] 2.0.1.735739.3.57[id number] 2.840.1.208489.3.57[id number] 2.0.1.724161.3.57[id number] 2.840.1.300467.3.57[id number] 2.840.1.277447.3.57[id number] 2.840.1.836687.3.57[id number] 2.840.1.642069.3.579.[id number] 2..1.665729.3.57[id number] 2..1.032104.3.57[id number] 2..1.493700.3.57[id number] 2..1.410046.3.57[id number] 2..1.906793.3.57[id number] 2..1.089794.3.579.[id number] 2..1.911443.3.579.[id number] 2..1.297984.3.579.[id number] 2..1.841012.3.57[id number] 2..1.299163.3.579.2.259[id number] 2..1.356618.3.57[id number] 2..1.062145.3.57[id number] 2..1.382483.3.579.[id number] 2..1.819520.3.579.2.65974-63-3823Qouz Cross Blue [id number] 2.0.1.570505.19Unknown Social History DateTypeDetailFacilityUnknown if ever smokedNoripley county memorial hospital [facility] Other Start: 09-04-2023 End: 16-00-4446Omo Assigned At [facility] Hospitaltart: 08-31-2023 End: 35-31-8730Zfmbaoy smoking statusHeavy tobacco smoker (finding)[facility] BellueStart: 08-04-2023 End: 68-68-7294Volngic smoking status NHISEx-smokerNOMS HealthcareHistory of tobacco useCurrent smokerNOMS HealthcareHistory of tobacco useCigarette Smoker [facility] HealthcareStart: 09-08-2023 End: 85-50-4807Zdupheyec beverage intakeCurrent drinker of alcohol (finding)[facility] HealthcareStart: 09-04-2023 End: 40-03-9621Anwgnzk of Social functionNOMS HealthcareHow often to you have a drink containing alcohol?Monthly or lessNOMS HealthcareHow many standard drinks containing alcohol do you have on a typical day?1 or 2NOMS HealthcareHow often do you have 6 or more drinks on 1 occasion?NeverNOMS HealthcareStart: 08-04-2023 Alcohol CommentCaffeine intake: more than 4 cups per dayNOIL HealthcareStart: 96-89-8615Zxg assigned at [facility] medical centerNot on fileHIGHLAND RIDGE HOSPITAL HealthcareTobacco smoking status [facility] HospitalueTobacco smoking status NHISUnknown if ever smokedMemorial Hospital Work Phone: SexFemale (finding)[facility] Start: 45-19-6347Kgq Assigned At [facility] Clinical Notes 01-23-2021 to 10-29-2024 Note Date & RoqyBkjdZvdujzvt71-89-3809 Evaluation note* Diagnosis Onset Date Resolution Status Admit Date Cerebral infarct acuteJuly 2024 3:30pmNumbness and tinglingacuteJuly 2024 3:30pm [facility] Work Phone: 1(219) 999-334005-14-2025 History of Present illness Narrative* JESSE Garber - 09/05/2024 3:40 PM EDT Images from the original note were not included. Subjective Valerie Kamara is a 44 y.o. year old female Chief Complaint Patient presents with Cerebrovascular Accident Past Medical History: Diagnosis Date Depression ([facility]) Depression screening Follow-up exam followinf surgery History of blood transfusion History of hysterectomy Morbid obesity ([facility]/HCC) BMI 40-44.9 Stroke ([facility]/HCC) 08/2022 Type 2 diabetes mellitus Past Surgical History: Procedure Laterality Date SECTION, LOW TRANSVERSE x3 CHOLECYSTECTOMY HYSTERECTOMY 01/2021 SALPINGECTOMY Bilateral Family History Problem Relation Name Age of Onset Diabetes Father Stroke Maternal Grandmother Hypertension Maternal Grandmother Diabetes Paternal Grandmother Diabetes Paternal Grandfather Migraines Other Social History Tobacco Use Smoking status: Former Types: Cigarettes Smokeless tobacco: Not on file Substance Use Topics Alcohol use: Yes Comment: Caffeine intake: more than 4 cups per day HPI HPI STROKE -on plavix -right sided weakness is slightly improving -reports extreme pain on the whole right side of body -states she gets zaps on her right side of body -burning and coolness sensation throughout body -starts in head and goes down entire right side MIGRAINES -on Nurtec -migraines have not been too bad -reports 2 a month -frequency decreases with warmer weather -located all over the head -admits light and sound sensitivity -admits nausea, occasional vomiting -reports floaters and blurred vision -does not sleep well -trouble staying asleep -averages 4-5 hours of broken up sleep -does not wake feeling rested PLMD -no longer taking requip -reports she only has symptoms when she does not get sleep ROS Review of Systems Constitutional: Positive for fatigue. Negative for appetite change. Eyes: Positive for photophobia. Respiratory: Negative for cough and shortness of breath. Cardiovascular: Negative for chest pain and palpitations. Gastrointestinal: Positive for nausea. Negative for vomiting. Musculoskeletal: Negative for back pain and neck pain. Neurological: Positive for dizziness, numbness and headaches. Negative for tremors. Objective Visit Vitals BP 138/88 Pulse 88 Resp 16 Ht 4' 11 Wt 207 lb SpO2 93% BMI 41.81 kg/m Smoking Status Former BSA 1.98 m GENERAL Apical RRR, no murmur Neurological Exam Mental Status Awake, alert and oriented to person, place and time. Recent and remote memory are intact. Speech isnormal. Language is fluent with no aphasia. Attention and concentration are normal. Fund of knowledge is appropriate for level of education. Tearful due to pain. Cranial Nerves CN II: Visual acuity is normal. Visual bustamante full to confrontation. CN III, IV, : Extraocular movements intact bilaterally. Normal lids and orbits bilaterally. Pupils equal round and reactive to light bilaterally. CN V: Facial sensation is normal. CN VII: Full and symmetric facial movement. CN VIII: Hearing is normal. CN IX, X: Palate elevates symmetrically. Normal gag reflex. CN XI: Shoulder shrug strength is normal. CN XII: Tongue midline without atrophy or fasciculations. Sensory Light touch is normal in upper and lower extremities. Slight decrease in pinprick sensation to medial portion of distal upper extremities and slight decrease in lateral portion of distal lower extremities R>L. Temperature is normal in upper and lower extremities. Vibration is normal in upper andlower extremities. Coordination Right: Amegwb-pp-affg normal. Rapid alternating movement normal.Left: Zeedse-oz-rpfm normal. Rapid alternating movement normal. Negative pronator drift. Gait Casual gait is normal including stance, stride, and arm swing. Motor Examination RUE Strength deltoid, biceps, triceps, wrist extensors, wrist extensors, wrist flexor, brick molder hand strength 5/5. LUE Strength deltoid, biceps, triceps, wrist extensors, wrist extensors, wrist flexor, brick molder hand strength 5/5. RLE Strength illopsoas, quadriceps, tibialis anterior, and gastrocnemius strength 5/5. LLE Strength illopsoas, quadriceps, tibialis anterior, and gastrocnemius strength 5/5. Tone Normal tone x4 extremities. Reflexes: RUE biceps reflex 2, brachioradialis reflex 2 LUE biceps reflex 2, brachioradialis reflex 2 RLE knee reflex 2, LLE knee reflex 2, Heart: Regular rate and rhythm Assessment and Plan 1. Cerebrovascular accident (CVA) due to bilateral embolism of posterior cerebral arteries - I63.433 (Primary), Patient is a 44-year-old female with medical history includes obesity, GERD, migraine, diabetes mellitus type 2, syncope and tobacco use. Patient [facility] to [facility] with right facial droop, dysarthria, and right-sided weakness in 08/2022. She was given TPA at 9:45 AM at the recommendation of the [facility] stroke team, Dr Escobedo. She was transferred to [facility]. Reassessment showed NIH of 0. Patient underwent full stroke evaluation which showed bilateralthalamic infarcts. She continus to have some subtle and intermittent right [...] benefit. Due to her increase in symptoms, will trial lyrica and obtain BUE EMG. CT scan of the brain showed possible left temporal lobe hypodensity. CTA of the head and neck did not show significant stenosis. MRI brain showed bilateral thalamic infarcts. Echocardiogram showed EF of 60-65% with PFO showing right to left shunt. S/P closure in 12/2022 Hypercoagulable study negative. She has continued on plavix and seems to be tolerating well. 2. Periodic limb movement disorder - G47.61 noted on PSG. No evidence of DANTE. She is no longer taking requip as she has not needed it. Symptoms are stable 3. Migraine without aura and without status migrainosus, not intractable - G43.009, Patient was in the ER on 06/12/23 with right side weakness followed by a headache. She was evaluated for stroke withCT head that was nonacute. [facility] stroke team recommended management of her headache and thought she had neurologic symptoms associated with the headache. She does report that the weakness resolved after treatment of her headache for the most part so leading differential is a complicated migraine. She continue to have some paresthesias in her RUE. Repeat CT nonacute. She states she can not have an MRI with her PFO closure. Headaches are improved. She is on Nurtec for abortive and preventative therapy and is taking flexeril. She states she is no longer taking trileptal. Migraines are stable. - Diagnoses and all orders for this visit: 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) PLMD (periodic limb movement disorder) Migraine without aura and without status migrainosus, not intractable (CMS/HCC) Right arm pain Paresthesia Plan: 1. I will obtain a BUE EMG with nerve conduction studies and needle electrode exam to assess for a peripheral nerve process and help to differentiate between the above mentioned possible etiologies for the patient's symptoms and explain the findings on neurological exam. This EMG/NCS study will help determine the severity of this process, determine if the process is axon loss or demyelinating in type, determine the presence of active axon loss, and help with proper localization of this process. 2. Trial Lyrica 50mg PO BID for neuropathic pain 3. Continue Flexeril 5mg PO at bedtime for muscle spasms 4. OARRS reviewed 5. Continue statin and Plavix for secondary stroke prevention 6. Continue Nurtec 75mg for migraine prevention and abortive therapy 7. I will see the patient back in 4-8 weeks or sooner for new or worsening symptoms 8. Consider cervical spine MRI pending course Martha Toney PA-C documented in this [facility]11-03-2023 Evaluation note* Encounter Date Diagnosis Assessment Notes Treatment Notes Treatment Clinical Notes Feb, Contact with and (ray spected) exposure to covid-19 (ICD-10 - Z20.822) Feb,Viral URI with cough (ICD-10 - J06.9) Advised [...] treatment plan. Patient left in stable condition [facility] Other 07-23-2022 Evaluation note* Encounter Date Diagnosis Assessment Notes Treatment Notes Treatment Clinical Notes Oct, Cough (ICD-10 - R05.9) Oct,2COVID-19 (ICD-10 - U07.1)Discharge Instructions for COVID-19 (Suspected or Confirmed ) material was printed Drink plenty fluids, get plenty of rest. Take Tylenol or Motrin for aches pains or fevers. You mustquarantine for 5 days after the onset of your symptoms of COVID. Follow-up with your family physician if no improvement in 2 to 3 days. [facility] Other 11-28-2021 Evaluation note* Encounter Date Diagnosis Assessment Notes Treatment Notes Treatment Clinical Notes Feb, Contact with and (ray spected) exposure to other viral communicable diseases (ICD-10 - Z20.828) covid pos, see above. Feb,OVID (ICD-10 - U07.1) Covid test pos in [...] Pt understood and agreed to tx plan. Feb,Other Additional time spent conducting pre-visit phone call, screening for symptoms, instructions on social distancing, application and removal of PPE, and cleaning of examination room, equipment and supplies was preformed. Patient education given for testing methodology and results. Patient care instructions given in writting by [facility] document. [facility] Other 10-01-2021 History general Narrative - Reported* Type Description Date Medical History gestational diabetes Medical Historytype II diabetesSurgical Historypartial qpplqiqdhubj00/2021 Hospitalization HistoryPartial wwpizyltvaxk28/2021 [facility] Other 10-01-2021 History general Narrative - Reported* Type Description Date Medical History gestational diabetes Medical Historytype II diabetesSurgical Historypartial mrmapepkjsav14/2021 Surgical Historyc-sectionSurgical HistorycholecystectomyHospitalization History Partial jmsjiawchzto29/2021 [facility] Other 10-01-2021 History general Narrative - Reported* Type Description Date Medical History gestational diabetes Medical Historytype II diabetesSurgical Historypartial igtxdezenwlx92/2021 Surgical Historyc-sectionSurgical HistorycholecystectomySurgical Historypfo xjcyspd6390Ongycyupttehydl HistoryPartial currjudpnehi62/2021Hospitalization Cdwfjkqojnkgf9104 [facility] Other Evaluation + Plan note No data available for this section [facility]* Diagnosis PLMD (periodic limb movement disorder)- Primary Periodic limb movement disorder Migraine without aura and without status migrainosus, not intractable (CMS/HCC) 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) documented in this encounter [facility] HealthcareEvaluation note* Diagnosis 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)- Primary PLMD (periodic limb movement disorder) Periodic limb movement disorder Migraine without aura and without status migrainosus, not intractable (CMS/HCC) Right arm pain Pain in soft tissues of limb Paresthesia Disturbance of skin sensation documented in this encounter [facility] HealthcareEvaluation noteNo assessment information availableMemorial Hospital Work Phone: Hospital Discharge instructions No data available for this section [facility] No data available for this section [facility] SouthReason for referral (narrative)No reason for referral information availableMemorial Hospital Work Phone: Summary Purpose Family History No Family History Records Found Relationship Condition Age at Onset Recorded Date/T jennifer father Diabetes mellitus Unknown paternal grandfatherDiabetes mellitusUnknownpaternal grandmotherDiabetes mellitusUnknownmaternal grandmotherHypertensionUnknownCerebrovascular accident (CVA)Unknown Advance Directives No Advanced Directives Records Found Advance Directive Response Recorded Date/ Time Advance Directives No August 20 024 7:57am Chief Complaint and Reason for Visit Chief Complaint Admit Date EMG BUE per AH October 29, 2024 3:30p m Chief Complaint Admit Date EMG BUE per AH October 29, 2024 3:30p m Follow up after EMG November 19, 2024 3:54 pm Reason for Visit Admit Date Cerebral infarct October 29, 2024 3:30p m Numbness and tingling October 29, 2024 3:3 0pm Chief Complaint Admit Date follow up February 21, 2025 3 :56pm Additional Source Comments INFORMATION SOURCE (unrecogn ized section and content) DATE CREATED AUTHOR 08/18/2018 [facility] DATE CREATED AUTHOR AUTHOR'S ORGANIZ ATION 10/04/2022 [facility] DATE CREATED AUTHOR AUTHOR'S ORGANIZ ATION 03/10/2024 [facility] DATE CREATED AUTHOR AUTHOR'S ORGANIZ ATION 09/02/2024 [facility] DATE CREATED AUTHOR AUTHOR'S ORGANIZ ATION 09/07/2024 [facility] DATE CREATED AUTHOR AUTHOR'S ORGANIZ ATION 01/18/2025 [facility] DATE CREATED AUTHOR AUTHOR'S ORGANIZ ATION 02/21/2025 [facility] DATE CREATED AUTHOR AUTHOR'S ORGANIZ ATION 02/28/2025 [facility] REASON FOR VISIT (unrecogniz ed section and content) ReasonCommentsCerebrovascular Accident Patient Care team informatio n (unrecognized section and content) Team MemberRelationshipSpecialtyStart DateEnd Date Regina Perez MD PCP - GeneralFamily Ztvuccqf35/11/23 Oh Laird MD [address] [place], [place] [address] Referring PhysicianNeurology07/12/23Team MemberRelationshipSpecialtyStart DateEnd Date Regina Perez MD [address] [place] [address] PCP - GeneralFamily Hhoiytox01/29/24 Oh Laird MD [address] [place] [address] Referring PhysicianNeurology07/12/23 Martha Toney PA [address] [place] [address] Physician TmwvflalaPzyalhpju24/29/24 Estee Akhtar PA [address] [place] [address] Physician KaygwucorHihzfeupm05/29/24Team MemberRelationshipSpecialtyStart Date End Date Rgeina Perez MD [address] [place] [address] [facility] Souxnhri13/29/24 Oh Laird MD [address] [place] [address] Referring PhysicianNeurology07/12/23 Martha Toney PA [address] [place] [address] Physician IlazcitrbGvjlkmfed13/29/24 Estee Akhtar PA [address] [place] [address] Physician DpqxuuonkBwekspvqd83/29/24Team MemberRelationshipSpecialtyStart Date End Date Regina Perez MD [address] [place] [facility] [place] [address] PCP - GeneralFamily Zhjjoxmp07/29/24 Oh Laird MD Referring PhysicianNeurology07/12/23 Martha Toney PA [address] [place] [address] Physician UimqaifqpIhantmuzo71/29/24 Estee Akhtar PA [address] [place] [address] Physician NxughzwtyJdanwqpen65/29/24Team MemberRelationshipSpecialtyStart Date End Date Regina Perez MD [address] [place] [facility] [place] [address] PCP - Generalmily Egjbejsh24/29/24 Oh Laird MD Referring PhysicianNeurology07/12/23 Martha Toney PA [address] [place] [address] Physician NwifummitPhoxfcrdi20/29/24 Estee Akhtar PA [address] [place] [address] Physician LhumjvxycVmnznuezh53/29/24 Team Status: Active Member Role Status Dates Izzy Hernández NP-C Primary Care Provider Active Team Status: Inactive Member Role Status Dates Qing Jaffe DO Attending Provider Active Sta rt: October 29, 2024 End: October 29, 2024Izzy Hernández PRODUCTION SUPERVISOR TRAINEE-CPrimary Care ProviderActiveStart: October 29, 2024 End: October 29, 2024 Team Status: Inactive Member Role Status Dates Estee Blanco APRN [facility] Provider Active Start: November 19, 2024 End: November 19, 2024Catalinamanny Hawkins Edgar , PRODUCTION SUPERVISOR TRAINEE-[facility] Care ProviderActiveStart: November 19, 2024 End: November 19, 2024 Team Status: Active Member Role/Relationship Status Dates Izzy Hernández , PRODUCTION SUPERVISOR TRAINEE-C Primary Care Provider Active Team Status: Inactive Member Role/Relationship Status Dates Izzy Hernández , PRODUCTION SUPERVISOR TRAINEE-C Primary Care Provider Active Start: February 21, 2025 End: February 21Kam Carney ProviderActiveStart: February 21, 2025 End: February 21, 2025 Goals (unrecognized section and content) Goals may be documented in a n alternate section FOR RECORDS PERTAINING TO PATIENTS WHO ARE [...] BE BASED ON THE PRIMARY CLINICAL RECORDS. [facility]. provides no warranty or guarantee of the accuracy or completeness of information in this document.
== END 2025-03-01 13:49 | disposition home or self-care (01) ==
LOC: MAMMO 13:48
PROVIDERS: PCP Nurse Practitioner; Visit Provider Nurse Practitioner
DX: Z12.31 Encounter for screening mammogram for malignant neoplasm of breast (principal)
CPT/HCPCS: 77063; 77067